=== PATIENT | female | born 1940 | race Caucasian/White ===

== ENCOUNTER 2018-11-27 16:33 | Inpatient (IN) ==
[2018-11-27] MEDS ORDERED: CARDIZEM IV ONE ×2 (17:32→20:39)
[2018-11-27] MEDS ORDERED: CARDIZEM ONE (17:46)
--- NOTE | 2018-11-27 17:54 | PROVIDER DOCUMENTATION ---
This chart was entered by Muna Josue Scribe, acting as scribe for Renan Livingston MD. HPI-Cardiac General - General Source: patient - History of Present Illness-Cardiac Location: reports: central Quality of Pain: reports: none Severity in ED: mild Onset/Duration: 2 days ago Timing: still present Context/Activities at Onset: reports: light activity Modifying Factors: improves with: nothing Palpitation Quality: fast/pounding heart beat (fast) History of arrythmia: reports: none Associated Symptoms: reports: shortness of breath, weakness Similar Symptoms Previously?: Yes Recently Seen Here or By Another Healthcare Provider: Yes <Renan Livignston - Last Filed: 11/27/18 19:36> <Boris Velez - Last Filed: 11/27/18 21:47> - General Chief Complaint: Palpitations Stated Complaint: HEART RACING Time Seen by Provider: 11/27/18 17:35 Allergies/Adverse Reactions: Patient Allergies Allergy/AdvReac Type Severity Reaction Status Date / Time Tetanus Vaccines and Toxoid Allergy Severe edema Verified 10/18/16 15:25 [Tetanus] azithromycin AdvReac Intermediate NAUSEA/VOMI Verified 10/18/16 15:25 TING cephalexin monohydrate * AdvReac Intermediate NAUSEA/VOMI Verified 10/18/16 15: 25 [From Keflex] TING sertraline HCl * AdvReac Intermediate Unknown Verified 10/18/16 15:25 [From Zoloft] sulfamethoxazole AdvReac VOMITING Verified 10/18/16 15:25 [From Bactrim] trimethoprim [From Bactrim] AdvReac VOMITING Verified 10/18/16 15:25 Home Medications: Home Medication List Medication Instructions Recorded Confirmed Last Taken Type Docusate Sodium [Colace] 100 mg PO DAILY 08/21/12 10/18/16 10/18/16 08:30 History Hydrochlorothiazide 12.5 mg PO DAILY 08/21/12 10/18/16 10/18/16 08:30 History Lorazepam [Ativan] 1 mg PO QHS 08/21/12 10/18/16 10/17/16 History PRAVAstatin [Pravachol] 80 mg PO QHS 08/21/12 10/18/16 10/17/16 History Albuterol 2.5MG/Ipratrop 0.5MG 3 ml INH Q4-6H PRN PRN #30 neb 10/18/16 Unknown Rx [Duoneb] Benzonatate [Tessalon Perle] 100 mg PO HS PRN PRN #40 capsule 10/18/16 Unknown Rx Budesonide/Formoterol Inhaler 2 puff INH RTBID 10/18/16 10/18/16 10/18/16 08:30 History [Symbicort 160/4.5 Microgm Inhaler] Fexofenadine [Consuelo] 60 mg PO DAILY 10/18/16 10/18/16 10/18/16 08:30 History Fluticasone 50 Mcg Nasal [place] 1 spray SUHAS DAILY 10/18/16 10/18/16 10/18/16 08: 30 History [Flonase] Losartan [Cozaar] 50 mg PO DAILY 10/18/16 10/18/16 10/18/16 08:30 History Montelukast Chew [Singulair] 4 mg PO DAILY 10/18/16 10/18/16 10/18/16 08:30 History Olopatadine HCl [Patanase] 30.5 gm NS BID 10/18/16 10/18/16 10/17/16 History - History of Present Illness-Cardiac Nature of Presenting Problem: Patient is a 78 year old female who presents to the ED with palpitations. Patient states shortness of breath and weakness. Patient states symptoms started 2 days ago. Patient does not report chest pain. Patient states seeing Dr. Yun this morning and was placed on a Holter Monitor. Patient states palpitations increased around 1530 today. (Muna Josue) Patient is a 78 year old female who presents to the ED with palpitations. Patient states shortness of breath and weakness. Patient states symptoms started 2 days ago. Patient does not report chest pain. Patient states seeing Dr. Yun this morning and was placed on a Holter Monitor. Patient states palpitations increased around 1530 today. (Renan Livingston) Review of Systems - Adult - REVIEW OF SYSTEMS - ADULT Constitutional: reports: no symptoms reported Eyes: reports: no symptoms reported Ears, Nose, Mouth & Throat: reports: no symptoms reported Cardiovascular: reports: palpitations. denies: chest pain, heart murmur Respiratory: reports: shortness of breath. denies: cough, wheezing Gastrointestinal: reports: no symptoms reported Genitourinary: reports: no symptoms reported Musculoskeletal: reports: muscle weakness. denies: back pain, neck pain Integumentary: reports: no symptoms reported Neurological: reports: no symptoms reported Psychiatric: reports: no symptoms reported Endocrine: reports: no symptoms reported Hematologic/Lymphatic: reports: no symptoms reported Allergic/Immunologic: reports: no symptoms reported All Other Systems: Reviewed and Negative <Renan Livingston - Last Filed: 11/27/18 19:36> Past History - Adult - PAST MEDICAL HISTORY-ADULT Review of Records: reports: Nursing Assessment Review, Medications Reviewed, Social history reviewed & non-contributory. Major Childhood Illnesses: reports: denies history Cardiovascular: reports: HTN, hyperlipidemia Respiratory: reports: bronchitis, COPD Gastrointestinal: reports: denies history Obstetrical/Gynecological: reports: denies history Genitourinary: reports: denies history Musculoskeletal: reports: denies history Neurological: reports: denies history Psychiatric: reports: denies history Endocrine/Immune: reports: denies history Other Conditions: reports: denies history - PRIOR SURGERIES/PROCEDURES Surgical/Procedure History: reports: hysterectomy - IMMUNIZATION STATUS Childhood Immunizations: See Nurse Assessment Flu Vaccine: See Nurse Assessment - FAMILY HISTORY Family History: reviewed, not pertinent - SOCIAL HISTORY Smoking: cigarettes (former) Substance Use: denies <Renan Livingston - Last Filed: 11/27/18 19:36> Physical Exam-General - PHYSICAL EXAM-ADULT Initial Vital Signs Reviewed: Yes - CONSTITUTIONAL General Appearance: alert, no apparent distress - HEAD, EARS, NOSE, MOUTH & THROAT HENMT: normal ENT inspection - RESPIRATORY Respiratory: chest non-tender, lungs clear, normal breath sounds - CARDIOVASCULAR Cardiovascular: tachycardia, irregularly irregular - GASTROINTESTINAL (ABDOMEN) Abdominal Exam: normal bowel sounds, non tender, soft - MUSCULOSKELETAL Back Exam: normal inspection Extremity: normal inspection - SKIN Integumentary: normal color, normal turgor, warm/dry - NEUROLOGIC Neurologic: grossly normal - PSYCHIATRIC Psych/Mental Status: normal mood/affect, oriented x 3 <Renan Livingston - Last Filed: 11/27/18 19:36> Progress - PLAN OF CARE/RESULTS Result Diagrams: 11/27/18 16:55 11/27/18 16:55 - EKG 1 Time of EKG reading by physician:: 16:43 EKG Read and Signed by:: Renan Livingston EKG Interpretation (*Must complete 3 of following elements*): Abnormal (rhythm - atrial fibrillation with rapid ventricular response with premature ventricular or aberrantly conducted complexes.) Rate: 153 Comments: ST & T wave abnormality, consider inferior ischemia - CHANGE OF SHIFT REPORT (ED Provider) 1 Report Given and Care Transferred to:: DR VELEZ Time of Transfer: 19:37 Items Pending: Labs, Other (CONTROLL OR RVR RATE) <Renan Livingston - Last Filed: 11/27/18 19:36> - PLAN OF CARE/RESULTS Result Diagrams: 11/27/18 16:55 11/27/18 16:55 <Boris Velez - Last Filed: 11/27/18 21:47> - PLAN OF CARE/RESULTS Progress/Plan/Lab Results: Vital Signs - 8 hr 11/27/18 16:36 11/27/18 17:02 11/27/18 17:10 Temperature 97.3 F L Pulse Rate 105 H 162 H 141 H Respiratory Rate 18 23 24 Blood Pressure 137/77 174/147 O2 Sat by Pulse Oximetry 100 99 98 11/27/18 17:20 11/27/18 17:30 11/27/18 17:40 Temperature Pulse Rate 139 H 154 H 140 H Respiratory Rate 20 19 21 Blood Pressure O2 Sat by Pulse Oximetry 98 99 99 11/27/18 17:50 11/27/18 18:00 11/27/18 18:10 Temperature Pulse Rate 85 103 H 113 H Respiratory Rate 24 19 24 Blood Pressure O2 Sat by Pulse Oximetry 100 97 95 11/27/18 18:17 11/27/18 18:18 11/27/18 18:20 Temperature Pulse Rate 121 H 111 H 119 H Respiratory Rate 26 H 19 29 H Blood Pressure 127/80 127/80 O2 Sat by Pulse Oximetry 99 98 95 11/27/18 18:29 11/27/18 18:31 11/27/18 18:40 Temperature Pulse Rate 171 H 163 H 152 H Respiratory Rate 21 21 20 Blood Pressure 106/79 O2 Sat by Pulse Oximetry 98 98 98 11/27/18 18:50 11/27/18 19:00 11/27/18 19:02 Temperature Pulse Rate 164 H 124 H 160 H Respiratory Rate 17 27 H 20 Blood Pressure 144/72 O2 Sat by Pulse Oximetry 97 97 98 11/27/18 19:10 11/27/18 19:20 11/27/18 19:30 Temperature Pulse Rate 127 H 143 H 122 H Respiratory Rate 16 12 18 Blood Pressure O2 Sat by Pulse Oximetry 98 98 98 11/27/18 19:40 11/27/18 19:50 11/27/18 20:00 Temperature Pulse Rate 128 H 158 H 133 H Respiratory Rate 16 16 16 Blood Pressure O2 Sat by Pulse Oximetry 94 L 99 99 11/27/18 20:01 11/27/18 20:10 11/27/18 20:20 Temperature Pulse Rate 158 H 155 H 155 H Respiratory Rate 23 21 29 H Blood Pressure 152/89 O2 Sat by Pulse Oximetry 99 100 99 11/27/18 20:30 11/27/18 20:32 Temperature Pulse Rate 120 H Respiratory Rate 19 Blood Pressure 147/118 O2 Sat by Pulse Oximetry 95 Laboratory Results - last 24 hr 11/27/18 11/27/18 11/27/18 16:55 16:55 16:55 WBC RBC Hgb Hct MCV MCH MCHC RDW Std Deviation Plt Count MPV Immature Gran % (Auto) Neut % (Auto) Lymph % (Auto) [place] % (Auto) Eos % (Auto) Baso % (Auto) Immature Gran # (Auto) Neut # (Auto) Lymph # (Auto) [place] # (Auto) Eos # (Auto) Baso # (Auto) PT INR PTT (Actin FS) Sodium 132 L Potassium 3.8 Chloride 93 L Carbon Dioxide 25 Anion Gap 14 BUN 28 H Creatinine 1.9 H Estimated GFR/1.73 m2 26 BUN/Creatinine Ratio 15 Glucose 120 H Calculated Osmolality 271 Calcium 10.2 Magnesium 2.2 Troponin T < 0.010 TSH 3.39 Urine Source Urine Color Urine Turbidity Urine pH Ur Specific [place] Urine Protein Ur Glucose (Stick) Ur Ketones (Stick) Urine Blood Urine Nitrite Urine Bilirubin Urobilinogen Dipstick Urine Leukocytes Urine WBC (Auto) Urine RBC (Auto) U Epithel Cells (Auto) Urine Bacteria (Auto) Urine Crystals Small Round Cells Urine Casts Urine Yeast-like Cells 11/27/18 11/27/18 11/27/18 16:55 16:55 18:45 WBC 16.68 H RBC 4.92 Hgb 14.9 Hct 43.6 MCV 88.6 MCH 30.3 MCHC 34.2 RDW Std Deviation 13.4 Plt Count 538 H MPV 9.6 Immature Gran % (Auto) 0.4 Neut % (Auto) 73.1 Lymph % (Auto) 19.7 L [place] % (Auto) 6.4 Eos % (Auto) 0.2 Baso % (Auto) 0.2 Immature Gran # (Auto) 0.06 H Neut # (Auto) 12.21 H Lymph # (Auto) 3.28 [place] # (Auto) 1.07 H Eos # (Auto) 0.03 Baso # (Auto) 0.03 PT 12.9 INR 0.90 PTT (Actin FS) 26.7 Sodium Potassium Chloride Carbon Dioxide Anion Gap BUN Creatinine Estimated GFR/1.73 m2 BUN/Creatinine Ratio Glucose Calculated Osmolality Calcium Magnesium Troponin T TSH Urine Source CLEAN CATCH Urine Color YELLOW Urine Turbidity HAZY Urine pH 6.0 Ur Specific [place] 1.011 Urine Protein TRACE A Ur Glucose (Stick) NEGATIVE Ur Ketones (Stick) 10 A Urine Blood NEGATIVE Urine Nitrite NEGATIVE Urine Bilirubin NEGATIVE Urobilinogen Dipstick NORMAL Urine Leukocytes MODERATE A Urine WBC (Auto) <10 Urine RBC (Auto) <10 U Epithel Cells (Auto) <10 Urine Bacteria (Auto) NEGATIVE Urine Crystals Not Reportable Small Round Cells Not Reportable Urine Casts NONE SEEN Urine Yeast-like Cells Not Reportable Orders Category Date Time Status Restart Infusion If As Ordered Care 11/27/18 20:40 Active Saline Loc NOW Care 11/27/18 17:35 Active BMP [BASIC METABOLIC PANEL] [CHEM] Stat Lab 11/27/18 16:55 Completed CBC WITH ELECTRONIC DIFF [HEME] Stat Lab 11/27/18 16:55 Completed MAGNESIUM [CHEM] Stat Lab 11/27/18 16:55 Completed PROTIME WITH INR [COAG] Stat Lab 11/27/18 16:55 Completed PTT [COAG] Stat Lab 11/27/18 16:55 Completed TROPONIN T Stat Lab 11/27/18 16:55 Completed TSH Stat Lab 11/27/18 16:55 Completed URINALYSIS W/POSS RFLX CULT [URINALYSIS] Stat Lab 11/27/18 18:45 Completed URINE CULTURE [RM] Routine Lab 11/27/18 19:23 Received URINE MANUAL MICROSCOPIC [URINALYSIS] Stat Lab 11/27/18 18:45 Completed 0.9% Sodium Chloride Inj [Ns] 1,000 ml Med 11/27/18 18:41 Discontinued .ROUTE As Directed 0.9% Sodium Chloride Inj [Ns] 1,000 ml Med 11/27/18 18:42 Discontinued IV 999 mls/hr 0.9% Sodium Chloride Inj [Ns] 100 ml Med 11/27/18 20:45 Active Diltiazem [Cardizem] 125 mg IV As Directed Diltiazem [Cardizem] Med 11/27/18 17:32 Discontinued 20 mg IV NOW ONE Diltiazem [Cardizem] Med 11/27/18 17:46 Discontinued 25 mg .ROUTE .STK-MED ONE Diltiazem [Cardizem] Med 11/27/18 20:39 Discontinued 5 mg IV NOW ONE Pt signed out to me by Dr. Livingston, pt had received 20 of dilt, initially slowed down but upon speaking with me pt was back to HR in 150-160, pt started on dilt drip for Afib with RVR, spoke to Dr. Mcgee and will admit (Boris Velez) Departure <Renan Livingston - Last Filed: 11/27/18 19:36> - Departure Date of Disposition Decision: 11/27/18 Time of Disposition Decision: 21:46 Certified Medical Emergency: Emergent - Critical Care Note This patient required my direct & personal management of CC.: No <Boris Velez - Last Filed: 11/27/18 21:47> - Departure DIAGNOSIS: Atrial fibrillation with RVR Disposition: HOME 01 Condition: Stable Referrals and Follow-Ups: David Cordero MD [Primary Care Provider] - Attestation - Physician/ KENIA Attestation The physician spent face to face time with patient:: Yes Advanced Practice Provider documentation review:: Supervising physician onsite and consulted in the evaluation and care of this patient. The physician did have a face to face encounter with the patient. <Renan Livingston - Last Filed: 11/27/18 19:36> - Physician/ KENIA Attestation Patient care was provided by Advanced Practice Provider:: No The physician spent face to face time with patient:: Yes Advanced Practice Provider documentation review:: Supervising physician onsite and consulted in the evaluation and care of this patient. The physician did have a face to face encounter with the patient. <Boris Velez - Last Filed: 11/27/18 21:47> This chart was documented by the indicated scribe, (Muna Josue Scribe) and accurately reflects the services I performed and decisions made by me, Renan Livingston MD, as attested by the provider's signature.
[2018-11-27 18:04] LABS: BASO# 0.03 X1000 (0.0-0.2); BASO% 0.2 % (0.0-0.8); EOS# 0.03 X1000 (0.0-0.7); EOS% 0.2 % (0.0-10.0); HEMATOCRIT 43.6 % (37.0-47.0); HEMOGLOBIN 14.9 g/dL (12.0-16.0); IMM GRAN# 0.06 X1000 (0.0-0.04); IMM GRAN% 0.4 % (0.0-0.5); LYMPH# 3.28 X1000 (1.2-3.4); LYMPH% 19.7 % (20.5-51.1); MCH 30.3 PG (27-31); MCHC 34.2 g/dL (33-37); MCV 88.6 FL (81-99); MONO# 1.07 X1000 (0.11-0.59); MONO% 6.4 % (1.7-9.3); MPV 9.6 FL (7.4-10.4); NEUT# 12.21 X1000 (1.4-6.5); NEUT% 73.1 % (42.2-75.2); PLT 538 X1000 (130-400); RBC 4.92 XMIL (4.2-5.4); RDW 13.4 % (11.5-14.5); WBC 16.68 X1000 (4.8-10.8)
[2018-11-27 18:22] LABS: INR 0.9; PROTIME 12.9 Seconds (11.0-16.0)
[2018-11-27 18:24] LABS: PTT 26.7 Seconds (22.3-41.8)
[2018-11-27 18:37] LABS: CALCIUM 10.2 mg/dL (8.8-10.2); CREATININE 1.9 mg/dL (0.5-0.9); MAGNESIUM 2.2 mg/dL (1.5-2.7); POTASSIUM 3.8 mmol/L (3.5-5.1)
[2018-11-27] MEDS ORDERED: NS 1,000 ML ONE (18:41)
[2018-11-27] MEDS ORDERED: NS 1,000 ML IV ONE (18:42)
[2018-11-27 18:53] LABS: URINE SOURCE CLEAN CATCH
[2018-11-27 18:58] LABS: BILIRUBIN URINE NEGATIVE (NEGATIVE); BLOOD URINE NEGATIVE (NEGATIVE); COLOR YELLOW; GLUCOSE URINE NEGATIVE (NEGATIVE); KETONE URINE 10 mg/dL (NEGATIVE); LEUKOCYTES URINE MODERATE (NEGATIVE); NITRITE URINE NEGATIVE (NEGATIVE); PROTEIN URINE TRACE mg/dL (NEGATIVE); SP GRAVITY URINE 1.011; TURBIDITY URINE HAZY (CLEAR); UROBILINOGEN URINE NORMAL (NORMAL)
[2018-11-27 19:13] LABS: UR EPITHELIAL CELLS <10 /HPF (<10); URINE BACTERIA NEGATIVE /HPF; URINE RBC <10 /HPF (<10); URINE WBC <10 /HPF (<10)
[2018-11-27 19:20] LABS: URINE CASTS NONE SEEN
[2018-11-27] MEDS ORDERED: CARDIZEM 125 MG in NS 100 ML IV SCH (20:45)
[2018-11-27] MEDS ORDERED: TYLENOL PO ONE ×2 (22:18→22:55)
[2018-11-27] MEDS ORDERED: TYLENOL ONE (22:33)
[2018-11-27] MEDS: NS 1,000 ML IV SCH (23:30)
[2018-11-27] MEDS ORDERED: ZOFRAN IV PRN (23:30)
[2018-11-27] MEDS: HEPARIN SUBQ SCH (23:30)
[2018-11-27] MEDS: ATIVAN PO SCH (23:30)
[2018-11-27] MEDS ORDERED: SODIUM CHLORIDE 0.9% INJ SCH (23:30)
[2018-11-27] MEDS: PROTONIX IV SCH (23:30)
[2018-11-28] MEDS: CARDIZEM PO SCH ×5 (01:15→21:08)
--- NOTE | 2018-11-28 04:24 | ED EKG INTERP ---
This chart was entered by Kimi Tavarez Scribe, acting as scribe for Boris Lowe MD. EKG Interpretation - EKG Time of EKG reading by physician:: 22:31 EKG Read and Signed by:: Boris Lowe EKG Interpretation (*Must complete 3 of following elements*): Abnormal (normal sinus rhythm, T wave abnormality, consider inferior ischemia, T wave abnormality , consider anterior ischemia, Abnormal ECG) Rate: 91 Rhythm: sinus Attestation - Physician/ KENIA Attestation Patient care was provided by Advanced Practice Provider:: No The physician spent face to face time with patient:: Yes Advanced Practice Provider documentation review:: Supervising physician onsite and consulted in the evaluation and care of this patient. The physician did have a face to face encounter with the patient. This chart was documented by the indicated scribe, (Kimi Tavarez Scribe) and accurately reflects the services I performed and decisions made by me, Boris Lowe MD, as attested by the provider's signature.
--- NOTE | 2018-11-28 05:47 | Diag Imaging Result Doc PS360 ---
EXAM: CT THORAX W/O CONTRAST HISTORY: r/o pna. History of copd TECHNIQUE: CT chest without contrast COMPARISON: None. FINDINGS: No pleural effusions. No cardiomegaly. Moderate atherosclerosis. There are small mediastinal nodes. No enlarged lymph nodes. No infiltrates or consolidation. No bronchiectasis. There are multiple thin-walled cystic areas throughout the lungs. These are most pronounced in the lung bases and range in size from 5 mm to just over 6 cm. Limited images through the upper abdomen reveal several hepatic cysts. There has been extensive surgery to the lower cervical spine as well as the lower thoracic and upper lumbar spine. IMPRESSION: 1.No pneumonia 2.Multiple scattered cystic areas throughout the lungs. Differential includes atypical emphysema, lymphangiomyomatosis, or even cystic Langerhans cell histiocytosis. 3.A preliminary report was given at 12:44 AM This exam was performed using automated exposure control, adjustment of mA or kV according to patient size, and/or use of iterative reconstruction technique. Electronically signed by Rony Sanford 11/28/2018 5:45 AM
[2018-11-28 07:33] LABS: BASO# 0.04 X1000 (0.0-0.2); BASO% 0.3 % (0.0-0.8); EOS# 0.07 X1000 (0.0-0.7); EOS% 0.6 % (0.0-10.0); HEMATOCRIT 36.8 % (37.0-47.0); HEMOGLOBIN 12.4 g/dL (12.0-16.0); IMM GRAN# 0.02 X1000 (0.0-0.04); IMM GRAN% 0.2 % (0.0-0.5); LYMPH% 27.9 % (20.5-51.1); MCH 30.5 PG (27-31); MCHC 33.7 g/dL (33-37); MCV 90.6 FL (81-99); MONO# 0.84 X1000 (0.11-0.59); MONO% 7.3 % (1.7-9.3); MPV 9.3 FL (7.4-10.4); NEUT# 7.32 X1000 (1.4-6.5); NEUT% 63.7 % (42.2-75.2); PLT 361 X1000 (130-400); RBC 4.06 XMIL (4.2-5.4); RDW 13.3 % (11.5-14.5); WBC 11.49 X1000 (4.8-10.8)
[2018-11-28 07:37] LABS: CREATININE 1.4 mg/dL (0.5-0.9); POTASSIUM 3.6 mmol/L (3.5-5.1)
--- NOTE | 2018-11-28 08:35 | HISTORY AND PHYSICAL ---
PRIMARY CARE PHYSICIAN: Dr. David Cordero. CHIEF COMPLAIN: Palpitations. HISTORY OF PRESENT ILLNESS: This is a 78-year-old female who started complaining of palpitation this Saturday, so she went to see her primary care physician who found out she was in atrial fibrillation but the rate was controlled, so he coordinated an appointment with Dr. Andrade from Cardiology today. She was seeing her in the office. She was ordered many blood tests and she was provide some medication that she does not remember at this time. She went home and while she was checking her blood pressure, the heart rate according to the machine was 140s and 150s, so she called Dr. Andrade's office and she was recommended to come to the emergency department. The patient was complaining of some chest discomfort on and off. Denies any chest pain. Denies any nausea and vomiting. She was given some Cardizem IV pushes but because patient continues to be on elevated heart rate, the patient was started in the ER on Cardizem drip. The patient is going to be admitted for further evaluation and treatment. PAST MEDICAL HISTORY: 1. Hypertension. 2. Hypercholesterolemia. 3. COPD with emphysema. Patient never smoked patient. Patient is being seen by Dr. Ariza in the office. 4. Allergies, known seasonal. Patient receives a weekly shot. PAST SURGICAL HISTORY: 1. Three neck surgeries. 2. Hysterectomy. 3. Three back surgeries with placement of metallic rods and also fusion from the T10 to the sacrum. 4. Two breast biopsies. 5. Two surgeries in the elbow. ALLERGIES: As per patient, patient is allergic to tetanus vaccine. She did not mention anything about azithromycin or cephalexin. FAMILY HISTORY: Positive for hypercholesterolemia. SOCIAL HISTORY: Patient lives with . Never a smoker. Denies drinking alcohol, or using illicit drugs. PHYSICAL EXAMINATION: VITAL SIGNS: Temperature 97.3 degrees, heart rate 162, respiratory rate 23, blood pressure 174/47, O2 saturation 100% on room air. GENERAL: This is a 78-year-old female, lying in bed, in no acute distress. HEENT: Head is normocephalic, atraumatic. Mucous membranes are moist. NECK: No JVD noted. No carotid bruits. No lymphadenopathy. No thyromegaly. CARDIOVASCULAR: S1, S2 heard. No murmurs, gallops, or rubs. Irregularly irregular. RESPIRATORY: Decreased breath sounds globally. Patient is not using any accessory muscles or having work of breathing. ABDOMEN: Soft, nontender to palpation. Bowel sounds present. No organomegaly. EXTREMITIES: No clubbing, cyanosis, or edema. Peripheral pulses present in both legs. NEUROLOGICAL: Patient alert oriented x3. Moves all 4 extremities. LABORATORY DATA: White cell count 16.68, hemoglobin 14.9, hematocrit 43.6, platelets 538,000. Sodium 132, potassium 3.8, creatinine 1.9, glucose 120s. ASSESSMENT AND PLAN: 1. New onset atrial fibrillation with rapid ventricular response. Patient has been started on Cardizem drip. Upon my examination, heart rate is back to sinus. We are going to stop Cardizem drip. We will send to the [facility] just in case she is back in atrial fibrillation. We will start Cardizem 30 mg p.o. q.6 hours. We will consult Cardiology. We will do an echocardiogram and we will go from there. We will place on telemetry of course. 2. Hypertension. Blood pressure is under control. We will continue with the same management. 3. Leukocytosis, unknown at this point why. We have ordered blood culture, urine culture. Patient denies any respiratory or urinary symptoms. We will monitor this patient and if cultures are positive, we will start antibiotics. 4. Chronic kidney disease stage 2. Patient's creatinine is 1.9. Started getting higher during the last few years. In 2016 it was 1.2 and last year in June was 1.2, but today yesterday, it was 1.9 and 1.6. In any case, we will continue to monitor this patient closely. We will provide gentle fluid hydration. 5. Hypercholesteremia. Will continue home medications. 6. Chronic obstructive pulmonary disease/emphysema. We will continue with breathing treatments. The patient is not in any exacerbation. Further recommendations to follow according to the clinical situation of the patient. cc: Tayo Camarillo MD
[2018-11-28] MEDS: ALLEGRA PO SCH (09:15)
[2018-11-28] MEDS: COLACE PO SCH (09:17)
[2018-11-28] MEDS: FLONASE NAS SCH (09:18)
--- NOTE | 2018-11-28 09:30 | EKG Report ---
Test Performed on : 11/27/2018 4:43:45 PM Test Reason : ED. No order in [place] Blood Pressure : / mmHG Vent. Rate : 153 BPM Atrial Rate : 340 BPM P-R Int : 000 ms QRS Dur : 064 ms QT Int : 298 ms P-R-T Axes : 000 054 253 degrees QTc Int : 475 ms Atrial fibrillation. with rapid ventricular response. with premature ventricular or aberrantly conduc pepe complexes. ST & T wave abnormality, consider inferior ischemia Abnormal ECG When compared with ECG of 18-OCT-2016 15:31, Atrial fibrillation. has replaced Junctional rhythm. Vent. rate has increased BY 66 BPM Nonspecific T wave abnormality, worse in Lateral leads Unconfirmed Result
--- NOTE | 2018-11-28 09:32 | EKG Report ---
Test Performed on : 11/27/2018 10:31:41 PM Test Reason : ED. NO order in [place] Blood Pressure : / mmHG Vent. Rate : 091 BPM Atrial Rate : 091 BPM P-R Int : 136 ms QRS Dur : 064 ms QT Int : 432 ms P-R-T Axes : 059 042 051 degrees QTc Int : 531 ms Normal sinus rhythm. T wave abnormality, consider inferior ischemia T wave abnormality, consider anterior ischemia Abnormal ECG When compared with ECG of 27-NOV-2018 16:43, (Unconfirmed) Sinus rhythm. has replaced Atrial fibrillation. Vent. rate has decreased BY [address] no longer depressed in Inferior leads ST no longer depressed in Anterior leads Inverted T waves have replaced nonspecific T wave abnormality in Anterior leads Unconfirmed Result
[2018-11-28] MEDS: SYMBICORT 160/4.5 MICROGM INHALER INH SCH ×2 (11:00→19:05)
[2018-11-28] MEDS: SINGULAIR PO SCH (11:00)
[2018-11-28] MEDS: LOPRESSOR PO SCH ×2 (12:23→19:05)
[2018-11-28] MEDS: HEPARIN SUBQ SCH (12:23)
[2018-11-28] MEDS ORDERED: CARDIZEM 125 MG in NS 100 ML IV SCH (12:45)
--- NOTE | 2018-11-28 13:29 | EKG Report ---
Test Performed on : 11/28/2018 12:47:26 PM Test Reason : afib Blood Pressure : / mmHG Vent. Rate : 122 BPM Atrial Rate : 330 BPM P-R Int : 000 ms QRS Dur : 064 ms QT Int : 342 ms P-R-T Axes : 000 050 223 degrees QTc Int : 487 ms Atrial flutter. with variable AV block. ST & T wave abnormality, consider inferior ischemia ST & T wave abnormality, consider anterolateral ischemia Abnormal ECG When compared with ECG of 27-NOV-2018 22:31, (Unconfirmed) Atrial flutter. has replaced Sinus rhythm. Confirmed by Yen MESSINA, Salazar Neves ([id number]) on 11/29/2018 7:10:47 AM
[2018-11-28] MEDS: NS 1,000 ML IV SCH (15:48)
--- NOTE | 2018-11-28 17:55 | ECHO REPORT ---
ORDER DATE: 11/27/2018 ECHOCARDIOGRAM: INDICATION: Atrial fibrillation with rapid ventricular response. FINDINGS: 1. Right atrium appears normal in size. 2. Mild tricuspid regurgitation. RV systolic pressure of 40. 3. Normal RV size and systolic function. 4. No significant pulmonic insufficiency. 5. Normal left atrial size with a dimension of 3.6 cm. 6. No mitral valve prolapse. Trace mitral regurgitation. Somewhat difficult Doppler evaluation of the mitral valve. 7. The left ventricle appears normal in size with an end-diastolic dimension of 4.2. Normal wall thicknesses with posterior and interventricular septal wall thickness of 0.9 cm each. Hyperdynamic LV systolic function with estimated EF greater than 70%. The left ventricular outflow tract gradient was normal, but does not appear to have been assessed on Valsalva. 8. Aortic valve opens well. It is trileaflet. No evidence of stenosis or insufficiency. 9. Aorta appears normal in visualized segments. 10. No pericardial effusion seen. cc: MD Tayo Johnson MD
--- NOTE | 2018-11-28 18:27 | PROGRESS NOTE ---
DATE: 11/28/2018 SUBJECTIVE: At this moment the patient is feeling a little bit better. She is still in atrial fibrillation but the rate is controlled. Cardiology Department on board. We will continue with the same management and following recommendations. OBJECTIVE: Vital signs: Temperature 98 degrees, pulse 65, respiratory rate 17, blood pressure 116/66, oxygen saturation 98% on room air. HEENT: Head normocephalic. No trauma. PERRLA. Neck supple. No JVD. No masses. Central trachea. Chest clear to auscultation. No wheezing. No rales. Cardiovascular: Irregularly irregular rate and rhythm. Abdomen is soft, nontender, nondistended. No hepatosplenomegaly. Extremities: No edema. No clubbing. No cyanosis. Some joint deformity in the hands, probably due to arthritis. Neurological: The patient is alert and oriented x3. No focal deficits. LABORATORY DATA: WBC 11.4, hemoglobin 12.4, hematocrit 36.8, platelets 361,000. Sodium 141, potassium 3.6, chloride 105, bicarbonate 24, BUN 24, creatinine 1.4, glucose 79, calcium 9. Troponins negative x3. ASSESSMENT AND PLAN: 1. New-onset atrial fibrillation with rapid ventricular response. Continue with same management. She is getting Cardizem drip and also p.o. We will continue monitoring this patient in the cardiac intensive care unit. Cardiology Department on board. 2. Hypertension, stable. Continue with same management. 3. Leukocytosis. No source of infection at this moment. The patient denies any respiratory, skin or urinary symptoms. WBC decreased compared with yesterday. 4. Jmsul-lf-vjsluzp kidney disease. Creatinine also decreased from 1.9 to 1.4. This is really close to her baseline. We will continue to monitor. 5. Hypercholesterolemia. Continue with home medications. 6. Chronic obstructive pulmonary disease/emphysema. Continue breathing treatment as needed. This patient is not in exacerbation. She is not a smoker. cc: Miles Win MD
[2018-11-28] MEDS: PRAVACHOL PO SCH (21:08)
[2018-11-28] MEDS: PROTONIX IV SCH (21:08)
[2018-11-28] MEDS: ELIQUIS PO SCH (21:08)
[2018-11-28] MEDS: ATIVAN PO SCH (21:08)
--- NOTE | 2018-11-29 00:08 | PULMONOLOGY CONSULTATION ---
DATE: 11/28/2018 REQUESTING PHYSICIAN: Dr. Andrade. REASON FOR CONSULTATION: Abnormal CT scan. HISTORY OF PRESENT ILLNESS: Ms. La is a 78-year-old white female, a never smoker, who was admitted to the hospital with atrial fibrillation and rapid ventricular response. The patient had a chest x-ray which revealed no evidence of active disease. The patient was without pulmonary complaints, but did get a CT scan of the thorax, which reveals paraseptal and centrilobular emphysema. The patient has been followed in my clinic for approximately 7 years. The patient was admitted to the hospital in 2011 with a spontaneous pneumothorax. She was referred to [facility] because of a persistent leak, which did eventually close. She had a bronchoscopy performed at that visit by Dr. Cook. She has had serial pulmonary function studies, without evidence of progression of obstruction. She has always had dyspnea out of proportion to her normal appearing pulmonary function studies. Prior alpha-1 antitrypsin levels have been normal. PAST MEDICAL HISTORY/PROBLEM LIST: 1. Spontaneous pneumothorax, as per above. 2. Anxiety disorder. 3. Asthma. 4. Allergic rhinitis. 5. Hypertension. 6. Hypercholesterolemia. 7. Status post 4 back surgeries, with extensive hardware. 8. History of neck surgery. 9. Status post left elbow surgery. 10. Status post breast biopsies. 11. Status post hysterectomy. 12. Status post bilateral cataract surgery. SOCIAL HISTORY: The patient is a never smoker. No alcohol use. No known exposure to asbestos. No occupational exposures have been identified. REVIEW OF SYSTEMS: Notable for palpitations and lightheadedness prior to this admission. PHYSICAL EXAMINATION: General: Reveals a healthy-appearing white female, resting comfortably, and in no distress. Vital Signs: Blood pressure 116/66, heart rate 65, respiratory rate 17, oxygen saturation 98% on room air. HEENT: Pupils are equal and reactive. Oropharynx is clear. Neck: Supple. Chest: Reveals good air entry bilaterally, without wheezing, rales, or tactile fremitus. Cardiac: S1-S2. Abdomen: Soft, and without hepatosplenomegaly. Extremities: Without edema. LABORATORIES: CT scan shows emphysematous changes as per above. Her last CT scan of the thorax was in [facility] in 2011. It is not available currently on our system. She does have a CT scan of the abdomen and pelvis in 2009, which also demonstrated the emphysematous areas. She may have had slight progression over the last 9 years. IMPRESSION: 1. A 78-year-old nonsmoker with centrolobular and paraseptal emphysema, with probable slight progression over the last 9 years. Her PFTs have been followed serially, with the last ones in February are nearly normal, except for mild reduction in diffusion capacity. 2. Atrial fibrillation. 3. Chronic anxiety and dyspnea. RECOMMENDATIONS: No pulmonary recommendation. We will follow up as an outpatient. cc: Tereso Ariza MD
[2018-11-29] MEDS: LOPRESSOR PO SCH ×2 (02:19→11:29)
[2018-11-29] MEDS: NS 1,000 ML IV SCH (03:06)
[2018-11-29] MEDS: CARDIZEM PO SCH ×3 (03:06→14:50)
[2018-11-29 05:34] LABS: BASO# 0.02 X1000 (0.0-0.2); BASO% 0.2 % (0.0-0.8); EOS# 0.11 X1000 (0.0-0.7); EOS% 1.2 % (0.0-10.0); HEMOGLOBIN 10.6 g/dL (12.0-16.0); IMM GRAN# 0.02 X1000 (0.0-0.04); IMM GRAN% 0.2 % (0.0-0.5); LYMPH# 2.99 X1000 (1.2-3.4); LYMPH% 33.3 % (20.5-51.1); MCH 30.2 PG (27-31); MCHC 33.1 g/dL (33-37); MCV 91.2 FL (81-99); MONO# 0.81 X1000 (0.11-0.59); MPV 9.4 FL (7.4-10.4); NEUT# 5.04 X1000 (1.4-6.5); NEUT% 56.1 % (42.2-75.2); PLT 331 X1000 (130-400); RBC 3.51 XMIL (4.2-5.4); RDW 13.2 % (11.5-14.5); WBC 8.99 X1000 (4.8-10.8)
[2018-11-29 06:12] LABS: CALCIUM 8.7 mg/dL (8.8-10.2); CREATININE 1.2 mg/dL (0.5-0.9); POTASSIUM 3.8 mmol/L (3.5-5.1)
--- NOTE | 2018-11-29 06:48 | CARDIOLOGY CONSULTATION ---
DATE: 11/28/2018 Consultation requested by the Hospitalist Service. PRIMARY CARE PHYSICIAN: Dr. Nelson. RAILROAD WATCHMAN: Dr. Andrade. The patient is in atrial fibrillation. HISTORY: Ms. La is a 78-year-old female who presented to Dr. Nelson about 3 or 4 days ago complaining of a cold and having palpitations. She was sent to my office yesterday and at my office, the patient was tachycardic with PACs. She had an obvious upper respiratory infection. We did some lab work on her which showed that her BUN and creatinine were slightly elevated. She may have been slightly dehydrated. We checked a ProBNP level that was normal. Patient was instructed to stop her usual antihypertensive drugs and also start taking Cardizem CD 120; however, in the afternoon she developed palpitations and a rapid pulse and at that time, she got into a panic mode and she was advised to come to the emergency room for evaluation. In the ER, she was found in atrial fibrillation with rapid response so she was put on Cardizem drip. She converted. Cardizem drip was discontinued and then she developed recurrent palpitations and Cardizem was put back in and she has converted back to sinus rhythm now and she is feeling better. She has never had any major cardiac arrhythmia before. PAST MEDICAL HISTORY: 1. Hypertension. 2. COPD. 3. Emphysema. 4. Seasonal allergies. 5. Hyperlipidemia. SURGICAL HISTORY: 1. She has had previous back surgery. 2. Cervical fusion. 3. Hysterectomy. She had a spontaneous pneumothorax in the past and elbow surgery. SOCIAL HISTORY: She is . She is retired. Lives at home with her . No smoker, no drugs. FAMILY HISTORY: Noncontributory. HOME MEDICATIONS: When we saw her at the office were as follows 1. Pravachol 80 mg daily. 2. Spironolactone 25 mg 3 days a week. 3. Hydrochlorothiazide daily. 4. Altace 10 mg daily. 5. Consuelo allergy. 6. Symbicort. 7. Ativan. ALLERGIES: Adhesive tape, tetanus shot, cephalexin, Bactrim, azithromycin and Zoloft. REVIEW OF SYSTEMS: Other than the aforementioned findings is noncontributory. Cardiopulmonary, gastrointestinal, neurological, psychiatric, hematological, genitourinary, skin , HEENT, etc. negative for any major illness. PHYSICAL EXAMINATION: VITAL SIGNS: Blood pressure right now is 143/58, pulse is 81. Temperature 97.3 degrees, respirations 18. GENERAL: She is awake, alert, oriented. HEENT: Unremarkable. CHEST: Sounds clear to auscultation and percussion. HEART: Sounds are regular and rhythmic. I do not hear a gallop or rub. ABDOMEN: Nontender. No masses or hepatosplenomegaly. EXTREMITIES: Showed palpable pulses. No peripheral edema. NEUROLOGICAL: Follows commands. Moves 4 extremities. IMPRESSION: 1. Patient with paroxysmal atrial fibrillation with rapid response. 2. History of hypertension. 3. History of emphysema, COPD. 4. Mild renal dysfunction probably secondary to combination of diuretics and antihypertensives. 5. Question of concomitant URI/common cold. RECOMMENDATIONS: At this time, we will keep her on Cardizem. We will put her on low dose beta deisy. We will see how she does over the next couple of days and if she remains stable, we will probably send her home on a Cardizem dose of CD 120-180 mg daily plus low dose beta deisy like Toprol XL 25-50 mg daily and we will follow her at the office. In addition, because of the development of atrial fibrillation, she is at higher risk for a stroke. She will probably require long-term anticoagulation with one of the known vitamin K antagonists. We will probably put her on Eliquis or Xarelto. Her body weight is 123 pounds and her renal function is slightly decreased so probably we will go with low dose Eliquis 2.5 mg twice a day. Further advice will be forthcoming. cc: Kvng Andrade MD MTDJens
[2018-11-29] MEDS: SYMBICORT 160/4.5 MICROGM INHALER INH SCH ×2 (07:54→20:05)
[2018-11-29] MEDS: COLACE PO SCH (08:24)
[2018-11-29] MEDS: ELIQUIS PO SCH ×2 (08:24→21:01)
[2018-11-29] MEDS: FLONASE NAS SCH (08:24)
[2018-11-29] MEDS: ALLEGRA PO SCH (08:24)
[2018-11-29] MEDS: SINGULAIR PO SCH (08:24)
--- NOTE | 2018-11-29 09:30 | PROGRESS NOTE ---
DATE: 11/29/2018 SUBJECTIVE: The patient is feeling better. She converted to normal sinus rhythm. At this moment, she is in normal sinus rhythm. No chest pain. No shortness of breath. Her white blood cells normalized. BUN is normal and creatinine at baseline, 1.2. She has been started on anticoagulation. OBJECTIVE: Vital Signs: Temperature 97.2 degrees, pulse on the monitor of 62, respiratory rate 14, blood pressure 105/45, oxygen saturation 99 on room air. HEENT: Head normocephalic. No trauma. PERRLA. Neck: Supple. No JVD. No masses. Central trachea. Chest: Clear to auscultation. No wheezing. No rales. Cardiovascular: RRR. Abdomen: Soft, nontender, nondistended. No hepatosplenomegaly. Extremities: No edema. No clubbing. No cyanosis. Neurological Examination: The patient is alert and oriented x3. No focal deficits. Laboratory: WBC 8.9, hemoglobin 10.6, hematocrit 32, platelets 331,000. Sodium 140, potassium 3.8, chloride 107, bicarbonate 22, BUN 19, creatinine 1.2, glucose 89, calcium 8.7. ASSESSMENT AND PLAN: 1. New onset atrial fibrillation with rapid ventricular response, resolved. Now this patient is in normal sinus rhythm. We will continue with the same management. Cardiology department on board. We will follow recommendations. 2. Hypertension, stable. Continue with the same treatment. 3. Leukocytosis, resolved. I do not have any source of infection at this moment, and the blood culture and urine culture are negative. 4. Acute on chronic kidney disease. Creatinine at baseline. She seems to be doing better. I will stop at this moment the normal saline and I will monitor. The patient is tolerating her diet. 5. Hypercholesterolemia. Continue with home medications. 6. Chronic obstructive pulmonary disease/emphysema in a nonsmoker patient, aware. Pulmonary department already evaluated this patient. They will continue monitoring this patient after discharge. cc: Miles Win MD
[2018-11-29] MEDS ORDERED: MUCINEX PO SCH (15:00)
[2018-11-29] MEDS: MUCINEX PO SCH ×2 (15:02→21:01)
[2018-11-29] MEDS: DUONEB (A & A) INH PRN (15:28)
--- NOTE | 2018-11-29 19:47 | PROGRESS NOTE ---
DATE: 11/29/2018 SUBJECTIVE: The patient continues without chest discomfort or palpitations. She has converted back to sinus rhythm. She still has some cough. OBJECTIVE: Blood pressure 126/54, heart rate 66, oxygen saturation 100% on room air. There is no significant jugular venous distention. Chest is clear to auscultation. Cardiac exam reveals a regular rate and rhythm, without appreciable murmur or gallop. Extremities are without edema. DIAGNOSTIC DATA: Recent echocardiography indicates left ventricular ejection fraction of at least 70%. LABORATORY DATA: Includes a white blood cell count 8.99, hematocrit 32.0, hemoglobin 10.6, platelet count 331,000. Sodium 140, potassium 3.8, chloride 107, carbon dioxide 22, BUN 19, creatinine 1.2, glucose 89. IMPRESSION: 1. Paroxysmal atrial fibrillation. The patient has converted back to sinus rhythm spontaneously. 2. Hypertension. 3. Chronic obstructive pulmonary disease. 4. Mild renal dysfunction. RECOMMENDATIONS: 1. Continue Cardizem CD and consolidate to 120 mg p.o. daily. 2. Continue beta-deisy with Toprol-XL 50 mg p.o. daily. 3. Continue low-dose Eliquis 2.5 mg p.o. b.i.d. 4. No further cardiovascular suggestions at this point. It is reasonable for the patient to be discharged in the next 24 hours from a cardiovascular standpoint. cc: Klever Wilkins MD
[2018-11-29] MEDS: PRAVACHOL PO SCH (21:01)
[2018-11-29] MEDS: PROTONIX IV SCH (21:02)
[2018-11-29] MEDS: ATIVAN PO SCH (21:02)
[2018-11-30 05:56] LABS: BASO# 0.02 X1000 (0.0-0.2); BASO% 0.2 % (0.0-0.8); EOS# 0.09 X1000 (0.0-0.7); HEMATOCRIT 32.7 % (37.0-47.0); HEMOGLOBIN 11.1 g/dL (12.0-16.0); IMM GRAN# 0.02 X1000 (0.0-0.04); IMM GRAN% 0.2 % (0.0-0.5); LYMPH% 26.3 % (20.5-51.1); MCH 30.6 PG (27-31); MCHC 33.9 g/dL (33-37); MCV 90.1 FL (81-99); MONO# 0.67 X1000 (0.11-0.59); MONO% 7.7 % (1.7-9.3); MPV 9.4 FL (7.4-10.4); NEUT# 5.64 X1000 (1.4-6.5); NEUT% 64.6 % (42.2-75.2); PLT 312 X1000 (130-400); RBC 3.63 XMIL (4.2-5.4); RDW 13.1 % (11.5-14.5); WBC 8.74 X1000 (4.8-10.8)
[2018-11-30 06:33] LABS: CALCIUM 8.8 mg/dL (8.8-10.2); CREATININE 1.1 mg/dL (0.5-0.9); POTASSIUM 3.7 mmol/L (3.5-5.1)
[2018-11-30] MEDS: ELIQUIS PO SCH ×3 (07:42→20:54)
[2018-11-30] MEDS: COLACE PO SCH ×2 (07:42→09:02)
[2018-11-30] MEDS: TOPROL XL PO SCH ×2 (07:42→09:01)
[2018-11-30] MEDS: MUCINEX PO SCH ×3 (07:42→20:54)
[2018-11-30] MEDS: CARDIZEM CD PO SCH ×2 (07:42→09:01)
[2018-11-30] MEDS: ALLEGRA PO SCH ×2 (07:42→09:01)
[2018-11-30] MEDS: FLONASE NAS SCH ×2 (07:43→09:01)
[2018-11-30] MEDS: SINGULAIR PO SCH ×2 (07:43→09:01)
[2018-11-30] MEDS: SYMBICORT 160/4.5 MICROGM INHALER INH SCH ×2 (07:48→19:31)
--- NOTE | 2018-11-30 08:04 | PROGRESS NOTE ---
DATE: 11/30/2018 SUBJECTIVE: This patient is feeling better. She had an episode of RVR during the night. At this moment, the heart rate is around the 100s. Cardiology department on board. I will wait for their recommendations. Probably this patient can be discharged either today or tomorrow. OBJECTIVE: Vital Signs: Temperature 98.7 degrees, pulse 66, respiratory rate 20, blood pressure 118/50, oxygen saturation 99 on room air. HEENT: Head normocephalic. No trauma. PERRLA. Neck: Supple. No JVD. No masses. Central trachea. Chest: Clear to auscultation. No wheezing. No rales. Cardiovascular: Irregularly irregular rate and rhythm. A little bit tachycardic. Abdomen: Soft, nontender, nondistended. No hepatosplenomegaly. Extremities: No edema. No clubbing. No cyanosis. Neurological Examination: The patient is alert and oriented x3. No focal deficits. Laboratory: WBC 8.7, hemoglobin 11.1, hematocrit 32.7, platelets 312,000. Sodium 141, potassium 3.7, chloride 106, bicarbonate 26, BUN 19, creatinine 1.1, glucose 89, calcium 8.8. ASSESSMENT AND PLAN: 1. New onset atrial fibrillation with rapid ventricular response, resolved even though she had an episode of rapid ventricular response during the night. She is still in atrial fibrillation at this moment. Cardiology department on board. She has been going back to sinus rhythm on and off. We will follow recommendations. 2. Hypertension, stable. 3. Leukocytosis, resolved. I do not have any source of infection. 4. Acute on chronic kidney disease, resolved. This is her baseline. 5. Hypercholesterolemia. Continue with pravastatin. 6. Chronic obstructive pulmonary disease/emphysema in a nonsmoker patient, aware. Pulmonary department already evaluated this patient. They will continue monitoring this patient after discharge. cc: Miles Win MD
[2018-11-30] MEDS: DUONEB (A & A) INH PRN ×2 (15:58→19:31)
[2018-11-30] MEDS: PROTONIX IV SCH (20:54)
[2018-11-30] MEDS: ATIVAN PO SCH (20:54)
[2018-11-30] MEDS: PRAVACHOL PO SCH (20:54)
[2018-12-01] MEDS: SYMBICORT 160/4.5 MICROGM INHALER INH SCH ×2 (07:29→19:42)
[2018-12-01] MEDS: DUONEB (A & A) INH PRN ×2 (07:29→15:14)
--- NOTE | 2018-12-01 07:46 | EKG Report ---
Test Performed on : 11/30/2018 08:29:45 AM Test Reason : Afib RVR Blood Pressure : / mmHG Vent. Rate : 129 BPM Atrial Rate : 337 BPM P-R Int : 000 ms QRS Dur : 066 ms QT Int : 308 ms P-R-T Axes : 000 057 -83 degrees QTc Int : 451 ms Atrial flutter. with variable AV block. ST & T wave abnormality, consider inferior ischemia ST & T wave abnormality, consider anterolateral ischemia Abnormal ECG When compared with ECG of 29-NOV-2018 07:20, (Unconfirmed) Significant changes have occurred Confirmed by Salazar Barlow MD ([id number]) on 12/01/2018 9:13:41 PM
--- NOTE | 2018-12-01 07:52 | EKG Report ---
Test Performed on : 11/29/2018 07:20:06 AM Test Reason : afib Blood Pressure : / mmHG Vent. Rate : 065 BPM Atrial Rate : 065 BPM P-R Int : 142 ms QRS Dur : 070 ms QT Int : 450 ms P-R-T Axes : 065 060 053 degrees QTc Int : 468 ms Normal sinus rhythm. Normal ECG When compared with ECG of 28-NOV-2018 18:43, (Unconfirmed) No significant change was found Confirmed by Yen MESSINA, Salazar Neves ([id number]) on 12/01/2018 9:12:47 PM
--- NOTE | 2018-12-01 07:53 | EKG Report ---
Test Performed on : 11/28/2018 6:43:01 PM Test Reason : rhythm change Blood Pressure : / mmHG Vent. Rate : 064 BPM Atrial Rate : 064 BPM P-R Int : 144 ms QRS Dur : 068 ms QT Int : 432 ms P-R-T Axes : 050 050 047 degrees QTc Int : 445 ms Normal sinus rhythm. Nonspecific T wave abnormality Abnormal ECG When compared with ECG of 28-NOV-2018 12:47, (Unconfirmed) Sinus rhythm. has replaced Atrial flutter. Vent. rate has decreased BY 58 BPM T wave inversion no longer evident in Inferior leads Nonspecific T wave abnormality has replaced inverted T waves in Anterolateral leads Confirmed by Yen MESSINA, Salazar Neves ([id number]) on 12/01/2018 9:11:35 PM
[2018-12-01] MEDS ORDERED: CLARITIN PO ONE (08:43)
[2018-12-01] MEDS: ELIQUIS PO SCH ×2 (09:08→20:33)
[2018-12-01] MEDS: ALLEGRA PO SCH (09:08)
[2018-12-01] MEDS: CARDIZEM CD PO SCH ×2 (09:08→20:33)
[2018-12-01] MEDS: COLACE PO SCH (09:08)
[2018-12-01] MEDS: TOPROL XL PO SCH (09:08)
[2018-12-01] MEDS: MUCINEX PO SCH ×2 (09:08→20:33)
[2018-12-01] MEDS: SINGULAIR PO SCH (09:08)
[2018-12-01] MEDS: FLONASE NAS SCH (09:08)
--- NOTE | 2018-12-01 10:56 | EKG Report ---
Test Performed on : 12/01/2018 10:36:10 AM Test Reason : Confirm rhythm Blood Pressure : / mmHG Vent. Rate : 073 BPM Atrial Rate : 073 BPM P-R Int : 130 ms QRS Dur : 072 ms QT Int : 394 ms P-R-T Axes : 063 047 044 degrees QTc Int : 434 ms Normal sinus rhythm. Normal ECG When compared with ECG of 30-NOV-2018 08:29, (Unconfirmed) Sinus rhythm. has replaced Atrial flutter. Vent. rate has decreased BY [address] no longer depressed in Inferior leads ST no longer depressed in Anterior leads T wave inversion no longer evident in Inferior leads T wave inversion no longer evident in Anterolateral leads Confirmed by Yen MESSINA, Salazar Neves ([id number]) on 12/01/2018 9:17:25 PM
--- NOTE | 2018-12-01 15:50 | PROGRESS NOTE ---
DATE: 12/01/2018 SUBJECTIVE: Patient is feeling better, at the moment of my physical exam she was in normal sinus rhythm, no chest pain or shortness of breath, she has been complaining of dry cough so I will give her a dose of loratadine, I will continue with cough medication as well. OBJECTIVE: Vital Signs: Temperature 98.3 degrees, pulse 71, respiratory rate 12, blood pressure 130/65, oxygen saturation 100% on room air. HEENT: Head normocephalic. No trauma. PERRLA. Neck: Supple. No JVD. No masses. Central trachea. Chest: Clear to auscultation. No wheezing. Cardiovascular: RRR. No murmurs, no gallops, no rubs. Abdomen: Soft, nontender, nondistended. No hepatosplenomegaly. Extremities: No edema, no clubbing, no cyanosis. Neurological: The patient is alert and oriented x3. No focal deficits. LABORATORY: WBC 8.7, hemoglobin 11.1, hematocrit 32.7, platelet 312,000, sodium 141, potassium 3.7, chloride 106, bicarbonate 22, BUN 19, creatinine 1.1, glucose 89, calcium 8.8. ASSESSMENT AND PLAN: 1. New onset atrial fibrillation with rapid ventricular response, resolved, yesterday and the day before she has some episodes of rapid ventricular response and on and off atrial fibrillation but since yesterday afternoon I believe she has been on normal sinus rhythm, Cardiology Department has evaluated this patient. They want to keep the patient for 24 more hours to see how she does, I believe if she is in normal sinus rhythm tomorrow and the rate is controlled likely she can go home. 2. Hypertension stable. 3. Leukocytosis resolved, I do not have any source of infection. 4. Acute on chronic kidney disease, resolved. 5. Hypercholesterolemia. Continue with pravastatin. 6. Chronic obstructive pulmonary disease/emphysema in a nonsmoker patient, aware, pulmonary department already evaluated this patient. They will continue monitoring this patient after discharge. cc: Miles Win MD
[2018-12-01] MEDS: ATIVAN PO SCH (20:33)
[2018-12-01] MEDS: PROTONIX IV SCH (20:33)
[2018-12-01] MEDS: PRAVACHOL PO SCH (20:33)
[2018-12-02 07:13] VITALS: BP 130/80
[2018-12-02] MEDS: SYMBICORT 160/4.5 MICROGM INHALER INH SCH (08:03)
--- NOTE | 2018-12-02 08:10 | EKG Report ---
Test Performed on : 12/02/2018 07:25:49 AM Test Reason : afib Blood Pressure : / mmHG Vent. Rate : 065 BPM Atrial Rate : 065 BPM P-R Int : 124 ms QRS Dur : 072 ms QT Int : 426 ms P-R-T Axes : 047 049 047 degrees QTc Int : 443 ms Normal sinus rhythm. Normal ECG When compared with ECG of 01-DEC-2018 10:36, No significant change was found Confirmed by Salazar Barlow MD ([id number]) on 12/02/2018 8:47:10 AM
[2018-12-02] MEDS: ALLEGRA PO SCH (08:42)
[2018-12-02] MEDS: MUCINEX PO SCH (08:42)
[2018-12-02] MEDS: CARDIZEM CD PO SCH (08:42)
[2018-12-02] MEDS: ELIQUIS PO SCH (08:42)
[2018-12-02] MEDS: COLACE PO SCH (08:42)
[2018-12-02] MEDS: FLONASE NAS SCH (08:43)
[2018-12-02] MEDS: TOPROL XL PO SCH (08:43)
[2018-12-02] MEDS: SINGULAIR PO SCH (08:43)
--- NOTE | 2018-12-02 09:40 | DISCHARGE SUMMARY ---
ADMISSION DATE: 11/28/2018 DISCHARGE DATE: 12/02/2018 PRIMARY CARE DOCTOR: Dr. David Cordero [facility] COURSE: This is a 78-year-old who started complaining of palpitations on Saturday and went to primary care physician found that she was in atrial fibrillation, but the rate was controlled so she got an appointment with Dr. Andrade in the office. Seen in the office. He ordered many blood tests and she went home, checking her blood pressures. Her heart rate was running 140s, 150s, so she called Dr. Andrade. He recommended she come to the emergency room. When she presented, they gave her some Cardizem IV push. PAST MEDICAL HISTORY: 1. Hypertension. 2. Hypercholesterolemia. 3. COPD with emphysema. She has never smoked. ALLERGIES: Just seasonal allergies. PAST SURGICAL HISTORY: 1. Three neck surgeries. 2. Hysterectomy. 3. Three back surgeries, placement of metallic rods, also fusion in T10 to the sacrum. 4. Two breast biopsies. 5. Two surgeries in the elbow. ADMISSION DIAGNOSES: 1. New onset atrial fibrillation with rapid ventricular response. Start her on some Cardizem drip, put her in [facility]. 2. Hypertension. Blood pressure under good control. 3. Leukocytosis of unknown etiology. No sign of infection. 4. Chronic kidney disease stage 2. 5. Hypercholesterolemia. 6. History of chronic obstructive pulmonary disease and emphysema. She had an echocardiogram on 11/27. Normal right ventricular size. Left ventricle appeared normal size with end-diastolic dimension 4.2 cm. Ejection fraction 70%. Normal left atrial size. Normal right ventricular size. Cardiology, Dr. Andrade was following. [place] she would be a candidate for anticoagulation. I put her on low-dose beta deisy and Cardizem CD 120 to 180 mg daily. So probably will require long-term anticoagulation. I think we put her on Eliquis. She had a Pulmonary consult. She has central lobar paraseptal emphysema, which is probable slight progression over the last 9 years. Her PFTs have been followed serially, last 1 in February nearly normal, except for mild reduction in diffusion capacity. So, her rapid response resolved. She is back in sinus rhythm remains in sinus rhythm. So, felt she could go home today on 12/02/2018. DISCHARGE MEDICATIONS: She will go home on Eliquis 2.5 mg b.i.d., Cardizem CD 120 mg b.i.d., Colace 100 mg a day, Consuelo 60 mg a day, Flonase 1 puff each nostril daily, Mucinex 600 mg b.i.d. Still has some bronchial irritation and cough, Ativan 1 mg at bedtime, Toprol-XL 50 mg daily, Singulair, she was taking 4 mg a day and Pravachol 80 mg a day. FOLLOW-UP: She will follow up with her primary care physician and Cardiology in a couple of weeks. cc: Anthony Rico MD
== END 2018-12-02 10:57 | disposition home or self-care (01) | DRG 310 ==
LOC: ED 16:33 → SUATTDRO 11-28 00:40 → EDIPHOLD 11-28 00:40 → 4N 11-28 12:55 → EDIPHOLD 11-28 13:24 → 3S 11-28 14:04
PROVIDERS: ATTEND Emergency Medicine
CPT/HCPCS: 36415; 71020; 71046; 71250; 80048; 80053; 81001; 83735; 83880; 84443; 84484; 85025; 85610; 85651; 85730; 86140; 87040; 87088; 87275; 87276; 87804; 93005; 93010; 93306; 94640; 94761; 96361; 96365; 96366; 96372; 96375; 96376; 99285; A9270; C9113; J1644; J7030; S0164

== ENCOUNTER 2019-09-08 09:55 | Inpatient (IN) ==
[2019-09-08 12:41] LABS: BASO# 0.03 X1000 (0.0-0.2); BASO% 0.3 % (0.0-0.8); EOS# 0.15 X1000 (0.0-0.7); EOS% 1.3 % (0.0-10.0); HEMATOCRIT 40.7 % (37.0-47.0); HEMOGLOBIN 13.8 g/dL (12.0-16.0); IMM GRAN# 0.02 X1000 (0.0-0.04); IMM GRAN% 0.2 % (0.0-0.5); LYMPH# 2.32 X1000 (1.2-3.4); LYMPH% 19.6 % (20.5-51.1); MCH 31.2 PG (27-31); MCHC 33.9 g/dL (33-37); MCV 92.1 FL (81-99); MONO# 0.81 X1000 (0.11-0.59); MONO% 6.8 % (1.7-9.3); MPV 9.5 FL (7.4-10.4); NEUT# 8.51 X1000 (1.4-6.5); NEUT% 71.8 % (42.2-75.2); PLT 379 X1000 (130-400); RBC 4.42 XMIL (4.2-5.4); RDW 12.9 % (11.5-14.5); WBC 11.84 X1000 (4.8-10.8)
[2019-09-08 12:57] LABS: INR 1.19; PROTIME 15.2 Seconds (11.0-16.0)
[2019-09-08 12:58] LABS: PTT 30.4 Seconds (22.3-41.8)
[2019-09-08 13:10] LABS: ALB/GLOB RATIO 1.6; ALBUMIN 4.1 g/dL (3.5-5.0); CALCIUM 9.3 mg/dL (8.8-10.2); CREATININE 1.3 mg/dL (0.5-0.9); POTASSIUM 4.2 mmol/L (3.5-5.1); TOTAL BILIRUBIN 0.32 mg/dL (0.20-1.00); TOTAL PROTEIN 6.6 g/dL (6.3-8.3)
[2019-09-08 14:00] LABS: URINE SOURCE CLEAN CATCH
[2019-09-08 14:06] LABS: BILIRUBIN URINE NEGATIVE (NEGATIVE); BLOOD URINE NEGATIVE (NEGATIVE); COLOR YELLOW; GLUCOSE URINE NEGATIVE (NEGATIVE); KETONE URINE NEGATIVE (NEGATIVE); LEUKOCYTES URINE NEGATIVE (NEGATIVE); NITRITE URINE NEGATIVE (NEGATIVE); PH URINE 6.5; PROTEIN URINE NEGATIVE (NEGATIVE); SP GRAVITY URINE 1.013; TURBIDITY URINE CLEAR (CLEAR); UR EPITHELIAL CELLS <10 /HPF (<10); URINE BACTERIA NEGATIVE /HPF; URINE RBC TNTC /HPF (<10); URINE WBC <10 /HPF (<10); UROBILINOGEN URINE NORMAL (NORMAL)
[2019-09-08] MEDS ORDERED: TYLENOL PO PRN (19:55)
[2019-09-08] MEDS: COLACE PO SCH (20:36)
[2019-09-08] MEDS: PRAVACHOL PO SCH (20:36)
[2019-09-08] MEDS: SYMBICORT 160/4.5 MICROGM INHALER INH SCH (21:28)
--- NOTE | 2019-09-09 02:13 | HISTORY AND PHYSICAL ---
REASON FOR ADMISSION: Spontaneous pneumothorax. 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 This initially measured 22.25 cm. She was followed in my clinic with serial x-rays without resolution, but with slight increase in size. X-ray yesterday revealed increasing pneumothorax and patient was developing dyspnea at rest. She has been admitted for spontaneous pneumothorax, which has increased in size and shows no signs of resolution. PAST MEDICAL HISTORY: 1. Lymphangioleiomyomatosis mitosis, presumptive. 2. Recurrent pneumothoraces. 3. Anxiety disorder. 4. Atrial fibrillation. 5. Status post 3 cervical spine surgeries and 4 low back surgeries. 6. Status post hysterectomy. 7. Status post cataract surgery. 8. Status post bunionectomy. 9. Asthma. SOCIAL HISTORY: She is a never smoker. No alcohol use. FAMILY HISTORY: Notable for a daughter with lung disease, not fully defined, but may be similar to her mother's lung disease. Mother from hip surgery. Father has emphysema. One brother with lung cancer. REVIEW OF SYSTEMS: Notable for chronic cough and sputum production, shortness of breath, anxiety. Review of systems otherwise negative. PHYSICAL EXAMINATION: GENERAL: Reveals a thin white female resting comfortably and in no distress. VITAL SIGNS: BP 159/60, heart rate 60, respiratory rate 16, oxygen saturation 98%. HEENT: Pupils are equal and reactive. Oropharynx is clear. NECK: Supple. CHEST: Reveals diminished breath sounds at the left lung base. CARDIAC: S1, S2. ABDOMEN: Soft. EXTREMITIES: Without edema. LABORATORIES: White blood count 11.8, hemoglobin 13.8, platelet count 379,000. Sodium 139, potassium 4.2, chloride 102, bicarbonate 26, BUN 22, creatinine 1.3. PT is 15.2, INR is 1.19. Urinalysis does reveal mbo-[id number]-count red blood cells. IMPRESSION: A 79-year-old with 1. Spontaneous pneumothorax. 2. Dyspnea at rest. 3. Presumptive lymphangioleiomyomatosis. 4. Hematuria on current urinalysis. PLAN: 1. Hold anticoagulation. 2. Anticipate chest tube placement tomorrow by Dr. Man Grimes. 3. Anticipate the need for a follow-up urinalysis or additional evaluation of the hematuria. cc: MD David Flores MD
--- NOTE | 2019-09-09 07:19 | GENERAL SURGERY CONSULTATION ---
DATE: 09/08/2019 CHIEF COMPLAINT: Shortness of breath. REASON FOR CONSULTATION: Left spontaneous pneumothorax. HISTORY OF PRESENT ILLNESS: This is a 79-year-old female known to Dr. Ariza. She has a history of underlying lung disease and she has had at least 3 spontaneous pneumothoraces in the past, one of which had a prolonged air leak that was managed by cardiothoracic surgery in [place]. She was a never smoker. Dr. Ariza saw her last week for progressive left-sided pneumothorax. She is chronically short of breath but this has been worse over the last week. PAST MEDICAL HISTORY: Anxiety disorder, asthma, hypertension, hyperlipidemia, numerous degenerative spine operations, neck surgery. PAST SURGICAL HISTORY: Cataract, hysterectomy, breast biopsies, elbow surgery, multiple multilevel spinal fusions, left chest tube and right chest tube x2, one of which was related to trauma. SOCIAL HISTORY: Never smoker. No alcohol. No significant occupational exposures. REVIEW OF SYSTEMS: Ten point review of systems negative, otherwise mentioned in the HPI. FAMILY HISTORY: Reviewed and negative for cancer. OBJECTIVE: General: She is afebrile, pulse 60, blood pressure 159/60, oxygen saturation is 98% on room air. General: She is alert. HEENT: No scleral icterus. No cervical mass. Cardiovascular: Normal rate. Pulmonary: No increased work of breathing. I do not see any subcutaneous air. She does have a left-sided scar both from her back surgery as well as chest tubes. Integument: Warm and dry. Abdomen: Soft, nontender. Psychiatric: Appropriate affect. Peripheral Vascular: No lower extremity edema. LABORATORY DATA: White count is 11, hematocrit is 40. INR is 1.39. Creatinine is 1.3. LFTs are normal. Urinalysis is clear with the exception of some microscopic red blood cells. She does take I believe Xarelto as well or Eliquis. ASSESSMENT AND PLAN: A 79-year-old female with a mildly symptomatic refractory left-sided spontaneous pneumothorax. After discussion with Dr. Ariza, we have recommended chest tube placement. I have placed on the OR schedule tomorrow, make her n.p.o. at midnight. We discussed the risk of bleeding, infection, damage to the lung, persistent air leak or refractory pneumothorax and need for subsequent procedures. She understands all this and consents. We will go the operating room tomorrow for chest tube placement. cc: MD Tereso Williamson MD MTDD
[2019-09-09] MEDS: SYMBICORT 160/4.5 MICROGM INHALER INH SCH ×2 (08:21→10:33)
[2019-09-09] MEDS: FLONASE NAS SCH (10:27)
[2019-09-09] MEDS: ALLEGRA PO SCH (10:28)
[2019-09-09] MEDS: TOPROL XL PO SCH (10:40)
[2019-09-09] MEDS: ALDACTONE PO SCH (10:40)
[2019-09-09] MEDS: CARDIZEM CD PO SCH (10:40)
[2019-09-09] MEDS: VITAMIN D PO SCH (10:40)
[2019-09-09] MEDS: HYDROCHLOROTHIAZIDE PO SCH (10:40)
[2019-09-09] MEDS ORDERED: DIPRIVAN 1% ONE (11:58)
[2019-09-09] MEDS ORDERED: FENTANYL ONE (11:58)
[2019-09-09] MEDS ORDERED: CLINDAMYCIN 600 MG/D5W 600 MG/50 ML IVPB IV ONE (12:03)
[2019-09-09] MEDS ORDERED: CLINDAMYCIN 600 MG/D5W 600 MG/50 ML IVPB ONE (12:06)
[2019-09-09] MEDS ORDERED: XYLOCAINE 1%/EPI 1:100,000 ONE (12:29)
[2019-09-09] MEDS: DILAUDID ONE ×5 (12:58→13:25)
[2019-09-09] MEDS ORDERED: LR 500 ML ONE (13:14)
--- NOTE | 2019-09-09 13:16 | Diag Imaging Result Doc PS360 ---
EXAM: CHEST-1 VIEW HISTORY: chest tube TECHNIQUE: Single view COMPARISON: 09/07/2019 FINDINGS: A left-sided chest tube has been placed since the prior exam. Reexpansion of the left lung with only a tiny apical pneumothorax. Right lung remains well expanded and clear. No cardiomegaly. IMPRESSION: Tiny left pneumothorax with a left chest tube tube Electronically signed by Rony Sanford 09/09/2019 1:13 PM
--- NOTE | 2019-09-09 14:57 | GENERAL SURGERY PROGRESS NOTE ---
DATE: 09/09/2019 SUBJECTIVE: No events overnight. OBJECTIVE: Vital Signs: She is afebrile. No tachycardia. Oxygen saturation 95% on room air. General: She is alert. Cardiovascular: Normal rate. Pulmonary: No increased work of breathing. ASSESSMENT AND PLAN: A 79-year-old female with spontaneous pneumothorax on the left. She is, for most part, asymptomatic, but has failed to resolve with observation as an outpatient. Will plan for a chest tube placement today in the operating room. She is nothing by mouth. Discussed the risk of bleeding, prolonged air leak, damage to lung, need for subsequent procedure. She understands all this and consents. cc: MD Tereso Williamson MD
[2019-09-09] MEDS: NORCO-7.5 PO PRN (21:08)
[2019-09-09] MEDS: COLACE PO SCH (21:09)
[2019-09-09] MEDS: PERIDEX MT SCH (21:09)
[2019-09-09] MEDS: PRAVACHOL PO SCH (21:09)
--- NOTE | 2019-09-09 22:55 | OPERATIVE NOTE ---
PROCEDURE DATE: 09/09/2019 PREOPERATIVE DIAGNOSIS: Left spontaneous pneumothorax. POSTOPERATIVE DIAGNOSIS: Left spontaneous pneumothorax. PROCEDURE PERFORMED: Left 28-Uzbek chest tube placement. ESTIMATED BLOOD LOSS: Of 5 mL. ANESTHESIA: MAC with local. INDICATIONS: This is a female who has underlying lung disease and developed a left spontaneous pneumothorax. OPERATIVE FINDINGS: There was no significant intrapleural adhesions with a small amount of serous pleural fluid. OPERATIVE NOTE: The risks, benefits and alternatives were discussed with the patient and she consented. She was seen preoperatively. The surgical site was marked and confirmed. She was taken to the operating room and placed in the supine position. IV anesthesia was administered. The left chest was prepped with her arm positioned above her head with chlorhexidine, draped in the usual fashion. We identified her previous chest tube scar and went 1 rib space below this just right at the inframammary fold. I made an incision after injecting local anesthetic. We did use a seeker needle to aspirate air at this location. We injected the pleura as well. We made an incision, bluntly carried this down over the rib and entered the chest above and tunneling it slightly and introduced our finger sweeping down the adhesions. A 28-Uzbek chest tube was placed posterior and apically and secured at approximately 12 to 13 cm with 0 silk sutures. It was tidaling well. There was minimal serous pleural fluid. It was connected to a Pleur- evac. Dressings were applied. She tolerated well with no complication. cc: MD Tereso Williamson MD [facility]
--- NOTE | 2019-09-10 02:59 | PULMONOLOGY PROGRESS NOTE ---
DATE: 09/09/2019 SUBJECTIVE: Chest tube has been placed by Dr. Grimes. She is having some pain with inspiration. She is tolerating her clear liquid diet. OBJECTIVE: Vital Signs: Blood pressure 150/65, heart rate of 65, respiratory rate 20, oxygen saturation 99%. HEENT: Pupils are equal and reactive. Oropharynx appears clear. Neck: Supple. Chest: Reveals good air entry bilaterally. Chest tube is secured into the left chest. No air leak noted. Cardiac: Irregular irregular. Normal S1. Normal S2. Abdomen: Soft. Extremities: Without edema. LABORATORIES: Chest x-ray reveals near complete re-expansion of the left lung. IMPRESSION: A 79-year-old with: 1. Spontaneous pneumothorax. 2. Lymphangioleiomyomatosis. 3. Hematuria noted on admission UA. PLAN: 1. Chest tube placement per Dr. Grimes. This has been completed today. 2. Advance diet tomorrow if okay with Dr. Grimes. 3. Repeat urinalysis prior to discharge. cc: Tereso Ariza MD
[2019-09-10] MEDS: SYMBICORT 160/4.5 MICROGM INHALER INH SCH ×3 (03:46→19:18)
[2019-09-10] MEDS: NORCO-7.5 PO PRN ×4 (03:53→22:45)
[2019-09-10] MEDS: CARDIZEM CD PO SCH (10:15)
[2019-09-10] MEDS: ALLEGRA PO SCH (10:16)
[2019-09-10] MEDS: FLONASE NAS SCH (10:16)
[2019-09-10] MEDS: TOPROL XL PO SCH (10:16)
[2019-09-10] MEDS: PERIDEX MT SCH ×2 (10:16→20:01)
[2019-09-10] MEDS: VITAMIN D PO SCH (10:16)
[2019-09-10] MEDS: DILAUDID ONE ×2 (19:54→19:55)
[2019-09-10] MEDS: COLACE PO SCH (20:01)
[2019-09-10] MEDS: PRAVACHOL PO SCH (20:01)
[2019-09-10] MEDS: LOVENOX SUBQ SCH (22:42)
--- NOTE | 2019-09-11 02:52 | PULMONOLOGY PROGRESS NOTE ---
DATE: 09/10/2019 SUBJECTIVE: The patient is awake, alert, and conversant. She reports some shoulder pain with movement. OBJECTIVE: Vital Signs: The patient has been afebrile for the last 24 hours. Blood pressure 120/61, heart rate 56, respiratory rate 20, oxygen saturation 95%. HEENT: Pupils are equal and reactive. Oropharynx appears clear. Neck: Supple. Chest: Reveals crackles at the left base. Chest tube in position. No air leak noted. IMPRESSION: A 79-year-old with: 1. Spontaneous pneumothorax. 2. Lymphangioleiomyomatosis. 3. Hematuria on admission. PLAN: 1. Suction has been removed from the chest tube apparatus. 2. Diet per Dr. Grimes. 3. Chest tube management per Dr. Grimes. 4. DVT prophylaxis. 5. Follow up urinalysis tomorrow. cc: Tereso Ariza MD
--- NOTE | 2019-09-11 03:01 | GENERAL SURGERY PROGRESS NOTE ---
DATE: 09/10/2019 SUBJECTIVE: Doing okay. Has some pain at her chest tube site. OBJECTIVE: General: She is alert. Cardiovascular: Normal rate. Pulmonary: She is on room air. Chest tube is at -20 suction. There is no air leak. Minimal serosanguineous output. IMAGING: I reviewed her x-ray postoperatively, it showed resolution of pneumothorax. ASSESSMENT AND PLAN: This is a 79-year-old female status post left chest tube for a spontaneous pneumothorax. I have water sealed the tube, we will monitor and repeat x-ray in the morning, and possibly remove the tube tomorrow or the next day. I have encouraged her to be out of bed, aggressive pulmonary toileting. She is on appropriate bronchodilators. cc: MD Tereso Williamson MD
--- NOTE | 2019-09-11 07:43 | Diag Imaging Result Doc PS360 ---
EXAM: CHEST-PORTABLE 09/11/2019 HISTORY: ptx TECHNIQUE: AP portable at [id number] COMMENT: There is a chest tube on the left. No evidence of pneumothorax is present. There is improvement in the atelectasis over the left base seen on 09/09/2019. IMPRESSION: Improved left basilar atelectasis. Electronically signed by Dewayne Em 09/11/2019 7:41 AM
[2019-09-11] MEDS: NORCO-7.5 PO PRN ×2 (07:45→21:01)
[2019-09-11] MEDS: ALDACTONE PO SCH (09:28)
[2019-09-11] MEDS: TOPROL XL PO SCH (09:28)
[2019-09-11] MEDS: VITAMIN D PO SCH (09:28)
[2019-09-11] MEDS: HYDROCHLOROTHIAZIDE PO SCH (09:28)
[2019-09-11] MEDS: CARDIZEM CD PO SCH (09:28)
[2019-09-11] MEDS: ALLEGRA PO SCH (09:29)
[2019-09-11] MEDS: FLONASE NAS SCH (09:29)
[2019-09-11] MEDS: PERIDEX MT SCH ×2 (09:29→21:01)
[2019-09-11] MEDS ORDERED: MIRALAX PO PRN (10:41)
[2019-09-11] MEDS ORDERED: MIRALAX PO SCH (11:00)
[2019-09-11] MEDS: SYMBICORT 160/4.5 MICROGM INHALER INH SCH ×2 (11:24→19:02)
[2019-09-11] MEDS ORDERED: HALL'S COUGH LOZENGE MT PRN (13:54)
[2019-09-11 16:54] LABS: URINE SOURCE CLEAN CATCH
[2019-09-11 17:01] LABS: BILIRUBIN URINE NEGATIVE (NEGATIVE); BLOOD URINE NEGATIVE (NEGATIVE); COLOR YELLOW; GLUCOSE URINE NEGATIVE (NEGATIVE); KETONE URINE NEGATIVE (NEGATIVE); LEUKOCYTES URINE NEGATIVE (NEGATIVE); NITRITE URINE NEGATIVE (NEGATIVE); PH URINE 6.5; PROTEIN URINE NEGATIVE (NEGATIVE); SP GRAVITY URINE 1.015; TURBIDITY URINE CLEAR (CLEAR); UROBILINOGEN URINE NORMAL (NORMAL)
[2019-09-11 17:04] LABS: UR EPITHELIAL CELLS <10 /HPF (<10); URINE BACTERIA NEGATIVE /HPF; URINE RBC <10 /HPF (<10); URINE WBC <10 /HPF (<10)
[2019-09-11] MEDS: DUONEB (A & A) INH PRN (19:04)
[2019-09-11] MEDS: COLACE PO SCH (21:01)
[2019-09-11] MEDS: PRAVACHOL PO SCH (21:01)
[2019-09-11] MEDS: LOVENOX SUBQ SCH (21:02)
--- NOTE | 2019-09-12 01:35 | GENERAL SURGERY PROGRESS NOTE ---
DATE: 09/11/2019 SUBJECTIVE: She is doing well. She is having a cough but no real shortness of breath above her baseline. No fevers. OBJECTIVE: Pulse 78, oxygen saturation 96% on room air. She is alert. Her left chest tube is to water seal. There is no air leak. There is minimal drainage. IMAGING: Reviewed her x-ray this morning, it shows no evidence of pneumothorax, no effusion with good position of the tube. ASSESSMENT AND PLAN: A 79-year-old female with spontaneous left pneumothorax related to underlying lung disease. Given her history of recurrent pneumothoraces and air leaks, we will keep her tube to water seal again through the day today. Dr. Walker will follow my patient and the plan is to remove the tube tomorrow if her x-ray looks okay with no further air leak. Otherwise, I will see the patient over the next week, follow up her chest x-ray as an outpatient. cc: MD Tereso Williamson MD
--- NOTE | 2019-09-12 07:10 | Diag Imaging Result Doc PS360 ---
EXAM: CHEST-PORTABLE HISTORY: follow up pneumothorax TECHNIQUE: Single view COMPARISON: 09/11/2019 FINDINGS: There is a left-sided chest tube. No pneumothorax identified. The lungs are well expanded. No pneumonia. No cardiomegaly. IMPRESSION: Stable chest Electronically signed by Rony Sanford 09/12/2019 7:08 AM
[2019-09-12] MEDS: SYMBICORT 160/4.5 MICROGM INHALER INH SCH ×2 (07:51→19:25)
[2019-09-12] MEDS: PERIDEX MT SCH ×2 (08:55→20:46)
[2019-09-12] MEDS: NORCO-7.5 PO PRN (08:55)
[2019-09-12] MEDS: ALLEGRA PO SCH (08:55)
[2019-09-12] MEDS: VITAMIN D PO SCH (08:56)
[2019-09-12] MEDS: CARDIZEM CD PO SCH (08:56)
[2019-09-12] MEDS: TOPROL XL PO SCH (08:56)
[2019-09-12] MEDS: FLONASE NAS SCH (12:40)
--- NOTE | 2019-09-12 12:43 | Diag Imaging Result Doc PS360 ---
EXAM: CHEST-PORTABLE HISTORY: chest tube removal TECHNIQUE: Single view COMPARISON: 6:15 AM FINDINGS: Interval removal of the left-sided chest tube. There is a tiny left pneumothorax. No infiltrates. No cardiomegaly. IMPRESSION: Tiny left pneumothorax following removal of the left chest two Electronically signed by Rony Sanford 09/12/2019 12:41 PM
[2019-09-12] MEDS: DUONEB (A & A) INH PRN (19:25)
--- NOTE | 2019-09-12 19:31 | GENERAL SURGERY PROGRESS NOTE ---
DATE: 09/12/2019 SUBJECTIVE: Patient seems to be doing okay. OBJECTIVE: Vital Signs: Patient is currently afebrile. Her vital signs stable. General: No acute distress. HEENT: Normocephalic, atraumatic. Pupils equal, round, reactive to light. Mucous membranes moist. Oropharynx benign. Neck: Supple. Trachea midline. Cardiovascular: Regular rate and rhythm. Lungs: Grossly clear. No air leak noted on chest tube. Abdomen: Soft, nontender, nondistended. Extremities: Moves all extremities. Neurologic: Grossly intact. Skin: No signs of jaundice. Vascular: All extremities perfused. LABORATORY: None this morning. Chest x-ray from yesterday reviewed. Chest x- ray from this morning is pending. ASSESSMENT AND PLAN: A 79-year-old female with left-sided pneumothorax. Left-sided pneumothorax. At this time we will get an a.m. chest x-ray. If her lung still remains up may consider removing it today. Continue supportive care otherwise. cc: MD Tereso Butterfield MD MTDD
[2019-09-12] MEDS: COLACE PO SCH (20:46)
[2019-09-12] MEDS: LOVENOX SUBQ SCH (20:46)
[2019-09-12] MEDS: PRAVACHOL PO SCH (20:46)
--- NOTE | 2019-09-12 23:34 | GENERAL SURGERY PROGRESS NOTE ---
DATE: 09/12/2019 Chest x-ray this morning showed no pneumothorax. It has been stable for several days. Removed chest tube and once with the motion, placed an occlusive dressing. We will get a chest x-ray later today. Discussed with patient the possibility of a reaccumulation of a pneumothorax, but we will follow up with a chest x-ray around lunchtime. cc: MD Tereso Butterfield MD MTDD
--- NOTE | 2019-09-13 07:34 | Diag Imaging Result Doc PS360 ---
EXAM: CHEST-PORTABLE - 09/13/2019 HISTORY: follow up pneumothorax TECHNIQUE: Portable chest COMPARISON: 09/12/2019 FINDINGS: Heart size is normal. There is an approximately 15% pneumothorax on the left which is mildly increased from prior. There is no consolidation or pleural effusion identified. IMPRESSION: Mild increase in left pneumothorax compared to prior. Electronically signed by Yuniel Vega 09/13/2019 7:32 AM
[2019-09-13] MEDS: FLONASE NAS SCH (08:03)
[2019-09-13] MEDS: ALLEGRA PO SCH (08:08)
[2019-09-13] MEDS: PERIDEX MT SCH ×2 (08:10→21:27)
[2019-09-13] MEDS: CARDIZEM CD PO SCH (08:10)
[2019-09-13] MEDS: VITAMIN D PO SCH (08:10)
[2019-09-13] MEDS: TOPROL XL PO SCH (08:10)
[2019-09-13] MEDS: SYMBICORT 160/4.5 MICROGM INHALER INH SCH ×2 (08:28→19:55)
--- NOTE | 2019-09-13 09:45 | GENERAL SURGERY PROGRESS NOTE ---
DATE: 09/13/2019 SUBJECTIVE: Patient doing okay. She did have a small apical pneumothorax after removing her chest tube yesterday but she has not had any physiologic consequences from this. OBJECTIVE: Vital Signs: The patient is currently afebrile. Her vital signs are stable. General Examination: No acute distress. Cardiovascular: Regular rate and rhythm. Lungs: No increased labored breathing. Abdomen: Soft, nondistended. Chest x-ray from yesterday reviewed. ASSESSMENT AND PLAN: A 79-year-old female with pneumothorax. Pneumothorax. At this time, given her chest tube pull and the reaccumulation, we will repeat a chest x-ray this morning. If it is stable, improving, I think she could probably be discharged but otherwise, we will continue to monitor her. cc: MD Tereso Butterfield MD
[2019-09-13] MEDS: LOVENOX SUBQ SCH (21:27)
[2019-09-13] MEDS: COLACE PO SCH (21:27)
[2019-09-13] MEDS: PRAVACHOL PO SCH (21:27)
--- NOTE | 2019-09-14 06:36 | Diag Imaging Result Doc PS360 ---
EXAM: CHEST-1 VIEW HISTORY: SOB TECHNIQUE: Single view COMPARISON: 09/13/2019 FINDINGS: There is a small left pneumothorax similar to the prior study. The heart is not enlarged. The vessels are not distended. There are no infiltrates. No effusion identified. IMPRESSION: Stable left pneumothorax Electronically signed by Rony Sanford 09/14/2019 6:34 AM
[2019-09-14] MEDS: SYMBICORT 160/4.5 MICROGM INHALER INH SCH (08:17)
[2019-09-14] MEDS: CARDIZEM CD PO SCH (09:14)
[2019-09-14] MEDS: PERIDEX MT SCH (09:14)
[2019-09-14] MEDS: HYDROCHLOROTHIAZIDE PO SCH (09:14)
[2019-09-14] MEDS: VITAMIN D PO SCH (09:15)
[2019-09-14] MEDS: ALLEGRA PO SCH (09:15)
[2019-09-14] MEDS: ALDACTONE PO SCH (09:15)
[2019-09-14] MEDS: TOPROL XL PO SCH (09:15)
[2019-09-14] MEDS: FLONASE NAS SCH (09:17)
[2019-09-14 15:47] VITALS: BP 137/51
--- NOTE | 2019-09-14 23:58 | GENERAL SURGERY PROGRESS NOTE ---
DATE: 09/14/2019 SUBJECTIVE: Feels well. No shortness of breath above baseline. Oxygen saturations high 90s on 2 L. General: She is alert. Cardiovascular: Normal rate. Pulmonary: Equal chest rise. No subcu air. Left chest tube dressings in place. Reviewed her labs and reviewed her x-ray. Her x-ray shows a very trace amount of pneumothorax left side atypically with no subcu air, no mediastinal shift. ASSESSMENT AND PLAN: This is a female with underlying lung disease. She has had a spontaneous pneumothorax this is her 3rd episode. Chest tube been removed and overall she has very minimal residual pneumothorax that has been stable. Dr. Ariza plans let her go home. He will follow chest x-ray as an outpatient. I have discussed patient with him, I am available as needed. cc: MD Tereso Williamson MD
--- NOTE | 2019-09-15 19:43 | DISCHARGE SUMMARY ---
ADMISSION DATE: 09/08/2019 DISCHARGE DATE: 09/14/2019 DISCHARGE MEDICATIONS: 1. Albuterol and ipratropium nebulizers. 2. Consuelo 60 mg daily. 3. Fluticasone nasal spray 1 daily each nostril. 4. Colace 100 mg at bedtime. 5. Symbicort 160/4.5 mcg 2 puffs twice a day. 6. Vitamin D3 1000 units 1 tablet each day. 7. Spironolactone 1 tablet as directed. 8. Pravachol daily. 9. Eliquis 2.5 mg p.o. twice a day. 10. Cardizem CD 120 mg p.o. daily. 11. Metoprolol 50 mg p.o. daily. 12. Hydrochlorothiazide. 13. Lorazepam 1 tablet every 24 hours p.r.n. anxiety/insomnia. ADMISSION DIAGNOSIS: Spontaneous pneumothorax. DISCHARGE DIAGNOSIS: Spontaneous pneumothorax. HOSPITAL COURSE: The patient had been followed as an outpatient with a spontaneous pneumothorax which continued to enlarge. The patient was admitted to the hospital and evaluated by General Surgery. She had received her morning anticoagulation dose. She was dyspneic with exertion, but not at rest. Chest tube was placed the following day. She did require narcotics for pain control. Her chest tube was removed on 09/12/2019, and a tiny left apical pneumothorax was identified on followup films. This had slightly increased in size on yesterday's film, but was stable today. The patient remained asymptomatic throughout the day. She will be discharged home. She was given instructions to return to the emergency room immediately with increasing shortness of breath. Otherwise, she will follow up in my clinic in 1 week. PLAN: 1. Discharge today. 2. Follow up in my clinic in 1 week, or sooner if clinically indicated. cc: MD David Flores MD
== END 2019-09-14 19:08 | disposition home or self-care (01) | DRG 199 ==
LOC: DIRADM 09:55 → 4N 11:10
PROVIDERS: ADMIT Internal Medicine Pulmonary Disease; ATTEND Internal Medicine Pulmonary Disease

== ENCOUNTER 2019-10-22 07:42 | Inpatient (IN) ==
--- NOTE | 2019-10-22 09:52 | Diag Imaging Result Doc PS360 ---
CHEST-PORTABLE - 10/22/2019 INDICATION: abnormal exam COMPARISON: 10/20/2019 FINDINGS: There is a grossly stable left-sided pneumothorax. The air-fluid level has resolved however. The pneumothorax is about 25%. No infiltrates throughout the lungs. Heart size is normal. IMPRESSION: Stable moderate left pneumothorax. The fluid has resolved. Electronically signed by Yohannes Mak 10/22/2019 9:49 AM
[2019-10-22 10:59] LABS: BASO# 0.03 X1000 (0.0-0.2); BASO% 0.2 % (0.0-0.8); EOS# 0.04 X1000 (0.0-0.7); EOS% 0.3 % (0.0-10.0); HEMATOCRIT 41.3 % (37.0-47.0); HEMOGLOBIN 13.9 g/dL (12.0-16.0); IMM GRAN# 0.03 X1000 (0.0-0.04); IMM GRAN% 0.2 % (0.0-0.5); LYMPH# 2.15 X1000 (1.2-3.4); LYMPH% 16.4 % (20.5-51.1); MCHC 33.7 g/dL (33-37); MONO% 3.8 % (1.7-9.3); MPV 9.4 FL (7.4-10.4); NEUT# 10.35 X1000 (1.4-6.5); NEUT% 79.1 % (42.2-75.2); PLT 369 X1000 (130-400); RBC 4.49 XMIL (4.2-5.4)
[2019-10-22 11:10] LABS: INR 1.02; PROTIME 13.6 Seconds (11.0-16.0)
[2019-10-22 11:11] LABS: PTT 27.7 Seconds (22.3-41.8)
[2019-10-22 11:22] LABS: ALB/GLOB RATIO 1.3; CALCIUM 9.7 mg/dL (8.8-10.2); CREATININE 1.2 mg/dL (0.5-0.9); POTASSIUM 3.9 mmol/L (3.5-5.1); TOTAL BILIRUBIN 0.39 mg/dL (0.20-1.00)
[2019-10-22] MEDS: VITAMIN D PO SCH (17:54)
[2019-10-22] MEDS: TOPROL XL PO SCH (17:54)
[2019-10-22] MEDS: CARDIZEM CD PO SCH (17:54)
--- NOTE | 2019-10-22 19:08 | GENERAL SURGERY CONSULTATION ---
DATE: 10/22/2019 REASON FOR CONSULTATION: Left-sided pneumothorax. CHIEF COMPLAINT: Shortness of breath. HISTORY OF PRESENT ILLNESS: A 79-year-old female known to me, patient of Dr. Akhtar, who has chronic underlying lung disease and has had numerous recurrent bilateral spontaneous pneumothoraces. Most recently she had a chest tube placed back in September, and this resolved, but she went home and shortly reaccumulated pneumothorax. Dr. Ariza has been following this for the last several weeks, has failed to improve. She remains chronically short of breath, and she has now been admitted for further management. PAST MEDICAL HISTORY: Anxiety, asthma. She has interstitial lung disease, hypertension, hyperlipidemia, degenerative spine disease. SURGICAL HISTORY: She has had bilateral chest tubes, multiple breast biopsies, cataract, hysterectomy, numerous orthopedic procedures, elbow, spine, cervical, thoracic, lumbar. SOCIAL HISTORY: She never was a smoker. No alcohol. No significant environmental or occupational exposures. FAMILY HISTORY: Reviewed and negative for cancer. REVIEW OF SYSTEMS: Ten-point review of systems was performed and negative than otherwise mentioned in HPI. PHYSICAL EXAMINATION: Vital signs: She is afebrile, pulse 56, blood pressure 124/61, oxygen saturation 96% on room air. General: She is alert. HEENT: No scleral icterus. No cervical mass. Cardiovascular: Normal rate. Pulmonary: No increased work of breathing. She has equal chest rise bilaterally. Integument: Warm and dry without jaundice. Psychiatric: Appropriate affect. Neurologic: No gross deficits. Peripheral vascular: No lower extremity edema. LABORATORY DATA: White count 13, hematocrit 41. INR is 1.02. Creatinine is 1.2. LFTs normal. Albumin is 4.0. I reviewed her x-ray that shows a left-sided pneumothorax of approximately 25%. There is no consolidation. No masses. ASSESSMENT AND PLAN: A 79-year-old female with recurrent pneumothorax. She improved rapidly with her last 2 but unfortunately reaccumulated as an outpatient. She never really had a documented air leak; however, after discussion with Dr. Ariza, we discussed pros and cons between pleurodesis or even outpatient Heimlich valve. We will see how she progresses, but as of now, the plan is for outpatient Heimlich valve with more delayed removal. We have discussed the operation extensively with the patient. She understands. We will make her n.p.o. at midnight due to OR availability and plan on placing chest tube in the morning on the left side. cc: MD Tereso Williamson MD
[2019-10-22] MEDS: SYMBICORT 160/4.5 MICROGM INHALER INH SCH (20:29)
[2019-10-22] MEDS: DUONEB (A & A) INH PRN (20:29)
[2019-10-22 21:07] LABS: URINE SOURCE CLEAN CATCH
[2019-10-22 21:17] LABS: BILIRUBIN URINE NEGATIVE (NEGATIVE); BLOOD URINE NEGATIVE (NEGATIVE); COLOR STRAW; GLUCOSE URINE NEGATIVE (NEGATIVE); KETONE URINE NEGATIVE (NEGATIVE); LEUKOCYTES URINE NEGATIVE (NEGATIVE); NITRITE URINE NEGATIVE (NEGATIVE); PH URINE 6.5; PROTEIN URINE NEGATIVE (NEGATIVE); TURBIDITY URINE CLEAR (CLEAR); UROBILINOGEN URINE NORMAL (NORMAL)
[2019-10-22 21:20] LABS: UR EPITHELIAL CELLS <10 /HPF (<10); URINE BACTERIA NEGATIVE /HPF; URINE RBC <10 /HPF (<10); URINE WBC <10 /HPF (<10)
[2019-10-22] MEDS: COLACE PO SCH (23:12)
[2019-10-22] MEDS: PRAVACHOL PO SCH (23:12)
--- NOTE | 2019-10-23 02:56 | HISTORY AND PHYSICAL ---
REASON FOR ADMISSION: Pneumothorax. HISTORY OF PRESENT ILLNESS: Ms. La is a 79-year-old white female with asthma, lymphangioleiomyomatosis with cystic lung disease, and recurrent pneumothoraces who was admitted to the hospital for definitive treatment of a pneumothorax. Ms. La was admitted to the hospital in September for the same process and a chest tube was placed in the left hemithorax. Pneumothorax resolved and she was discharged home only to have the pneumothorax recur within a week. She has been followed for the small pneumothorax which now measures approximately 25% of the left hemithorax. She has dyspnea with minimal exertion and has been frustrated by lack of improvement. PAST MEDICAL HISTORY: 1. Lymphangioleiomyomatosis. 2. Recurrent pneumothoraces. 3. Anxiety disorder. 4. Atrial fibrillation. 5. History of 3 cervical spine surgeries. 6. History of 4 low back surgeries. 7. Status post hysterectomy. 8. Status post cataract surgery. 9. Status post bunionectomy. 10. Asthma. SOCIAL HISTORY: Never smoker. No alcohol use. She does take care of a chronically ill . FAMILY HISTORY: Notable for a daughter with chronic lung disease (lymphangioleiomyomatosis is in the differential). Mother from hip surgery. Father had emphysema. One brother with lung cancer. REVIEW OF SYSTEMS: Notable for chronic cough which is intermittently productive, recurrent shortness of breath, anxiety. PHYSICAL EXAMINATION: GENERAL: Reveals a well-developed, well-nourished female resting comfortably and in no distress. VITAL SIGNS: BP 134/96, heart rate 65, respiratory rate 19, oxygen saturation 96%. HEENT: Pupils are equal and reactive. Oropharynx is clear. NECK: Supple. CHEST: Reveals decreased breath sounds in the left hemithorax. CARDIAC: S1-S2. ABDOMEN: Soft. EXTREMITIES: Without edema. LABORATORIES: Chest x-ray reveals pneumothorax in the left chest measuring approximately 25%. There may be slight shift of the mediastinum. The patient has significant thoracolumbar disease with rods in position. IMPRESSION: A 79-year-old with: 1. Recurrent pneumothoraces. 2. Presumptive lymphangioleiomyomatosis. 3. Dyspnea with minimal exertion. RECOMMENDATION: Anticipate chest tube placement tomorrow. Doxycycline is being considered given the recurrent nature of her disease to be utilized for pleurodesis. A Heimlich valve is preferred if possible so that she can be discharged and followed if the lung will expand. PLAN: Chest tube placement tomorrow to re-expand the lung followed by Heimlich valve with possible discharge and outpatient followup. cc: MD David Flores MD
[2019-10-23] MEDS: TOPROL XL PO SCH (08:15)
[2019-10-23] MEDS ORDERED: DIPRIVAN 1% ONE (10:29)
[2019-10-23] MEDS ORDERED: XYLOCAINE-MPF 2% ONE (10:30)
[2019-10-23] MEDS ORDERED: XYLOCAINE 1%/EPI 1:100,000 ONE (10:31)
[2019-10-23] MEDS ORDERED: CLINDAMYCIN 600 MG/D5W 600 MG/50 ML IVPB ONE (11:25)
[2019-10-23] MEDS: VITAMIN D PO SCH (11:40)
[2019-10-23] MEDS: CARDIZEM CD PO SCH (11:40)
[2019-10-23] MEDS: DILAUDID ONE ×2 (12:02→12:11)
--- NOTE | 2019-10-23 12:10 | Diag Imaging Result Doc PS360 ---
EXAM: CHEST-PORTABLE HISTORY: CHEST TUBE PLACEMNT TECHNIQUE: Single view COMPARISON: 10/22/2019 FINDINGS: A left-sided chest tube has been placed since the prior exam. Marked decrease in the size of the left pneumothorax. No cardiomegaly. No pulmonary edema. No pneumonia. IMPRESSION: Interval improvement Electronically signed by Rony Sanford 10/23/2019 12:08 PM
[2019-10-23] MEDS: ALDACTONE PO SCH (16:41)
[2019-10-23] MEDS: NORCO-5 PO PRN (17:28)
[2019-10-23] MEDS: MORPHINE IV PRN ×2 (19:45→23:32)
[2019-10-23] MEDS: PRAVACHOL PO SCH (19:46)
[2019-10-23] MEDS: COLACE PO SCH (19:46)
[2019-10-23] MEDS: PERIDEX MT SCH (19:52)
[2019-10-23] MEDS: SYMBICORT 160/4.5 MICROGM INHALER INH SCH ×2 (19:55→21:28)
--- NOTE | 2019-10-23 22:03 | PULMONOLOGY PROGRESS NOTE ---
DATE: 10/23/2019 SUBJECTIVE: Ms. La has just returned from surgery for chest tube placement. She is sedated. She denies any shortness of breath or pain. OBJECTIVE: Vital Signs: Blood pressure 124/64, heart rate 63, respirations 18, temperature is 98 oral with room air saturations 97% to 100%. Cardiovascular: Regular rate and rhythm. S1, S2 appreciated. She has no lower extremity edema. Peripheral pulses palpable x4 extremities. Calves are nontender. Pulmonary: Breath sounds are clear, diminished on the left, with chest tube in place. Chest rises and falls symmetrically with respiration. Gastrointestinal: Abdomen is soft, nontender, nondistended with bowel sounds in all 4 quadrants. Skin: Warm and dry. LABORATORY DATA: There are no new labs. IMAGING: Chest x-ray revealed a left-sided chest tube has been placed since prior exam. Marked decrease in the size of left pneumothorax. No cardiomegaly. No pulmonary edema. No pneumonia. IMPRESSION: 1. Recurrent pneumothoraces. 2. Presumptive lymphangioleiomyomatosis. 3. Dyspnea with minimal exertion. 4. Status post left chest tube. PLAN: continue with breathing treatments every 4-6 hours p.r.n. as well as her Symbicort incentive spirometer every 4 hours. Repeat a chest x-ray in the morning. As of now, the plan is outpatient Heimlich valve with more delayed removal per General Surgery. Plan was discussed with Dr. Ariza. Dictated by YULIANA Wilson for Tereso Ariza MD cc: YULIANA Wilson MD [facility]
[2019-10-24] MEDS: COLACE PO SCH ×2 (01:23→22:02)
[2019-10-24] MEDS: PERIDEX MT SCH ×3 (01:24→22:02)
[2019-10-24] MEDS: PRAVACHOL PO SCH ×2 (01:24→22:01)
[2019-10-24] MEDS: NORCO-5 PO PRN (03:05)
--- NOTE | 2019-10-24 04:22 | OPERATIVE NOTE ---
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 PROCEDURE PERFORMED: Placement of left-sided chest tube. ANESTHESIA: MAC with local. INDICATIONS: The patient has underlying lung disease. She has had numerous recurrent bilateral pneumothoraces and has had 1 that has failed to improve as an outpatient. OPERATIVE NOTE: Risks, benefits, alternatives were discussed with the patient, she consented to the procedure, seen preoperative area, surgical site was marked. She was taken to the operating room, placed supine position. IV anesthesia was administered. Chest prepped with chlorhexidine solution, draped in usual fashion with the arm positioned above her head and secured. After a time-out, I made an incision just anterior to her previous chest tube site and carried this above the level of the rib, entered the pleural cavity and a small arriaga of air was noted. We ensured that there was no pleural adhesions. There was not. A 28-Macanese tube was placed posterior and apically and secured with 0 silk suture. It tidaled well, was connected to a Pleur-evac device. We felt we had adequate evacuation of pneumothorax. A gauze silk tape dressing was applied. She was woken, transferred back to recovery room, where a chest x-ray was obtained. No complication. Minimal EBL. cc: MD Tereso Williamson MD
[2019-10-24] MEDS: DUONEB (A & A) INH PRN ×3 (08:16→19:33)
--- NOTE | 2019-10-24 09:02 | Diag Imaging Result Doc PS360 ---
EXAM: CHEST-1 VIEW 10/24/2019 HISTORY: pneumothorax TECHNIQUE: Erect AP portable at 0833 COMMENT: There is a chest tube on the left. There is atelectasis versus pneumonia in the left lower lobe. There is blunting of costophrenic angle consistent with a small pleural effusion. Compared to 10/23/2019 there has been no appreciable change considering differences in technique. There is no residual pneumothorax. IMPRESSION: Resolution of left pneumothorax, otherwise stable since 10/23/2019. Electronically signed by Dewayne Em 10/24/2019 8:59 AM
[2019-10-24] MEDS: CARDIZEM CD PO SCH (10:31)
[2019-10-24] MEDS: VITAMIN D PO SCH (10:31)
[2019-10-24] MEDS: TOPROL XL PO SCH (10:31)
[2019-10-24] MEDS: SYMBICORT 160/4.5 MICROGM INHALER INH SCH ×3 (11:30→19:34)
[2019-10-24] MEDS ORDERED: NARCAN IV PRN (12:15)
[2019-10-24] MEDS: MORPHINE PCA IV PRN (13:17)
[2019-10-24] MEDS: LR 1,000 ML IV SCH (13:20)
[2019-10-24] MEDS: LOVENOX SUBQ SCH (13:21)
--- NOTE | 2019-10-24 15:56 | GENERAL SURGERY PROGRESS NOTE ---
DATE: 10/24/2019 Feels okay. She is having some pain, is better today but her pain has been a little delayed. No fevers. OBJECTIVE: Pulse 87, blood pressure 137/58, oxygen saturation 92% on room air. General: She is alert. Chest tubes in place. No air leak. I reviewed her x-ray that shows resolution of pneumothorax. Good position of tube. ASSESSMENT AND PLAN: This pleasant 79-year-old female status post left chest tube placement. I have ordered her PHYSICAL SCIENTIST so there is less of a delay for pain medication. She is on her appropriate home medications for her lungs. I am going to order Lovenox as well. We will keep the tubes to suction today. Plan to water-seal tomorrow and plan for possible Heimlich valve at discharge. cc: MD Tereso Williamson MD
--- NOTE | 2019-10-24 20:18 | PULMONOLOGY PROGRESS NOTE ---
DATE: 10/24/2019 SUBJECTIVE: Ms. La is sitting up at the bedside talking on the phone. She denies any pain or shortness of breath. OBJECTIVE: Vital Signs: Blood pressure is 122/59 with heart rate of 62, respirations 18, temperature is 98 degrees, room air saturations 92 to 96 percent. Cardiovascular: Regular rate and rhythm. S1, S2 appreciated. She has no lower extremity edema with peripheral pulses palpable x4 extremities. Pulmonary: Breath sounds are clear throughout. Chest rises and falls symmetric with respiration. Left-sided chest tube is taped securely. There is no air leak. Dressing is dry and intact. Gastrointestinal: Abdomen is soft, nontender, nondistended with bowel sounds in all 4 quadrants. Neurologic: She is alert and oriented x3. Skin: Warm and dry. IMAGING: Chest x-ray revealed resolution of pneumothorax. ASSESSMENT: 1. Recurrent pneumothoraces. 2. Presumptive lymphangioleiomyomatosis. 3. Dyspnea with minimal exertion. 4. Status post left chest tube placement 10/23/2019. PLAN: We will continue DuoNebs q.4-6 hours as well as her Symbicort. Incentive spirometer. As of now, plan is outpatient Heimlich valve with more delayed removal per General Surgery. Plan was discussed with Dr. Ariza. Dictated by YULIANA Wilson for Tereso Ariza MD cc: YULIANA Wilson MD
[2019-10-25] MEDS: SYMBICORT 160/4.5 MICROGM INHALER INH SCH ×2 (08:12→19:38)
[2019-10-25] MEDS: DUONEB (A & A) INH PRN ×3 (08:12→19:37)
--- NOTE | 2019-10-25 09:10 | Diag Imaging Result Doc PS360 ---
EXAM: CHEST-PORTABLE 10/25/2019 HISTORY: ptx TECHNIQUE: AP portable erect at 0900 COMMENT: There is a chest tube in the left hemithorax. There are platelike opacities in both lung bases which have not changed since 10/24/2019. There is no evidence of pneumothorax. IMPRESSION: Stable bibasilar subsegmental atelectasis. Electronically signed by Dewayne Em 10/25/2019 9:07 AM
[2019-10-25] MEDS: CARDIZEM CD PO SCH (10:01)
[2019-10-25] MEDS: VITAMIN D PO SCH (10:02)
[2019-10-25] MEDS: TOPROL XL PO SCH (10:02)
[2019-10-25] MEDS: PERIDEX MT SCH ×2 (10:02→20:26)
[2019-10-25] MEDS: LOVENOX SUBQ SCH (11:04)
[2019-10-25] MEDS: LR 1,000 ML IV SCH (12:04)
[2019-10-25] MEDS: NORCO-5 PO PRN (13:03)
--- NOTE | 2019-10-25 15:01 | PULMONOLOGY PROGRESS NOTE ---
DATE: 10/25/2019 SUBJECTIVE: Ms. La is sitting up in the chair at the bedside. She has no complaints. OBJECTIVE: Vital Signs: Blood pressure is 145/47, with a heart rate of 64, respirations 18, temperature is 97.7 degrees oral, room air saturation is 95% to 97%. HEENT: Head is normocephalic, atraumatic. Mucous membranes are moist. Pupils are equal, round, react to light. EOMs are intact. Cardiovascular: Regular rate and rhythm. S1, S2 appreciated. She has no lower extremity edema. Peripheral pulses are palpable x4 extremities. Pulmonary: Breath sounds are clear. Chest rises and falls symmetric with respiration. Left-sided chest tube is taped securely. There is no air leak. Dressing is dry and intact. Gastrointestinal: Abdomen is soft, nontender, nondistended with bowel sounds in all 4 quadrants. Neurologic: She is alert and oriented x3. Skin: Warm and dry. IMAGING: Chest x-ray reveals a chest tube in the left hemothorax. Platelike opacities at both lung bases have not changed since 10/24/2019. No evidence of pneumothorax. ASSESSMENT: 1. Recurrent pneumothoraces. 2. Presumptive lymphangioleiomyomatosis. 3. Dyspnea with minimal exertion. 4. Status post left chest tube placement, 10/23/2019. 5. Bibasilar atelectasis. PLAN: Will continue DuoNebs and Symbicort, get the patient up in the chair at least twice a day, incentive spirometer every 4 hours. As of now, plan is outpatient Heimlich valve with more delayed removal per General Surgery. Plan was discussed with Dr. Ariza. Dictated by YULIANA Wilson for Tereso Ariza MD cc: YULIANA Wilson MD
--- NOTE | 2019-10-25 15:02 | GENERAL SURGERY PROGRESS NOTE ---
DATE: 10/25/2019 SUBJECTIVE: Doing well. Pain in her chest tube site. No fevers. No tachycardia. Oxygen saturations low to mid 90s on room air. OBJECTIVE: General, she is alert. Left chest tube in place. No air leak. Serous drainage. I reviewed her labs and her x-ray. ASSESSMENT AND PLAN: A 79-year-old female status post left chest tube placement for spontaneous pneumothorax. We will place to water seal based off her x-ray today. We will repeat one tomorrow. cc: MD Tereso Williamson MD
[2019-10-25] MEDS: PRAVACHOL PO SCH (20:26)
[2019-10-25] MEDS: COLACE PO SCH (20:26)
[2019-10-26] MEDS: NORCO-5 PO PRN ×2 (01:04→12:43)
[2019-10-26] MEDS: SYMBICORT 160/4.5 MICROGM INHALER INH SCH ×2 (08:27→19:38)
[2019-10-26] MEDS: TOPROL XL PO SCH (09:30)
[2019-10-26] MEDS: CARDIZEM CD PO SCH (09:30)
[2019-10-26] MEDS: PERIDEX MT SCH ×2 (09:30→22:10)
[2019-10-26] MEDS: VITAMIN D PO SCH (09:30)
[2019-10-26] MEDS: LR 1,000 ML IV SCH (12:39)
[2019-10-26] MEDS: LOVENOX SUBQ SCH (12:39)
--- NOTE | 2019-10-26 14:49 | Diag Imaging Result Doc PS360 ---
EXAM: CHEST-PORTABLE HISTORY: chest tube TECHNIQUE: Single view COMPARISON: 10/25/2019 FINDINGS: There is a left-sided chest tube. There is a tiny left-sided pneumothorax. This is slightly larger than on the prior study. No cardiomegaly. Right lung remains well expanded and clear. IMPRESSION: Tiny left pneumothorax which is slightly larger than on the prior study. Electronically signed by Rony Sanford 10/26/2019 2:47 PM
[2019-10-26] MEDS: ALDACTONE PO SCH (17:07)
--- NOTE | 2019-10-26 20:58 | GENERAL SURGERY PROGRESS NOTE ---
DATE: 10/26/2019 SUBJECTIVE: Clinically about the same. No fevers, no tachycardia. She is on room air saturating high 90s. Her chest tubes to water seal with no air leak, minimal output. She is alert, no acute distress. I reviewed her x-ray, this shows a tiny left apical pneumothorax may be slightly larger than previous. ASSESSMENT AND PLAN: A 79-year-old female with underlying lung disease, poor compliance of the lung. I suspect it is causing this recurrence of pneumothorax and the tube was taken off suction. We have [address] Ari[address], Heimlich valve tomorrow possible doxycycline, pleurodesis. Will discuss with the patient what she would like to do, worried about doxycycline being effective agent but also given the lack of air leak I wonder that without the tube to suction that this pneumothorax will likely progress. Will discuss patient tomorrow what she would like to do, we could bedside pleurodesis with doxycycline if she would like to go this route, otherwise could consider outpatient chest tube with Heimlich valve. cc: MD Tereso Williamson MD
--- NOTE | 2019-10-26 21:55 | PULMONOLOGY PROGRESS NOTE ---
DATE: 10/26/2019 SUBJECTIVE: The patient is awake, alert, and conversant. She reports she is having significant chest pain associated with the chest tube. OBJECTIVE: Vital Signs: The patient has been afebrile for the last 24 hours. Blood pressure 147/54, heart rate 71, respiratory rate 16, oxygen saturation 92% HEENT: Pupils are equal and reactive. Oropharynx is clear. Neck: Supple. Chest: Reveals good air entry bilaterally. Cardiac: S1, S2. Abdomen: Soft. Extremities: Without edema. LABORATORIES: Chest x-ray reveals tiny pneumothorax, left apex. IMPRESSION: A 79-year-old with lymphangioleiomyomatosis with recurrent pneumothoraces. When placed on water-seal, she has a tiny pneumothorax in the left apex. I have discussed the case with Dr. Grimes. At this juncture, I believe we will proceed with a doxycycline pleurodesis followed by chest tube suction to pull the lung wall up, and then consider discharge, at least short term, with a Heimlich valve. cc: Tereso Ariza MD
[2019-10-26] MEDS: COLACE PO SCH (22:10)
[2019-10-26] MEDS: PRAVACHOL PO SCH (22:10)
[2019-10-27] MEDS: MORPHINE PCA IV PRN (05:11)
[2019-10-27] MEDS: TOPROL XL PO SCH (08:37)
[2019-10-27] MEDS: VITAMIN D PO SCH (08:37)
[2019-10-27] MEDS: CARDIZEM CD PO SCH (08:38)
[2019-10-27] MEDS: PERIDEX MT SCH (08:38)
[2019-10-27] MEDS: SYMBICORT 160/4.5 MICROGM INHALER INH SCH (10:50)
[2019-10-27] MEDS: LOVENOX SUBQ SCH (12:50)
--- NOTE | 2019-10-27 15:24 | Diag Imaging Result Doc PS360 ---
CHEST-PORTABLE - 10/27/2019 INDICATION: ptx COMPARISON: 10/26/2019 FINDINGS: Stable left chest tube in good position. Stable trace left pneumothorax of less than 5%. The right lung is clear. No infiltrates. Heart size is normal. IMPRESSION: No change from prior. Electronically signed by Yohannes Mak 10/27/2019 3:22 PM
[2019-10-27 15:40] VITALS: BP 140/63
[2019-10-27] MEDS: LR 1,000 ML IV SCH (17:40)
--- NOTE | 2019-10-27 22:35 | GENERAL SURGERY PROGRESS NOTE ---
DATE: 10/27/2019 SUBJECTIVE: She feels well. No shortness of breath. Pain is better. She is mostly controlled with [place]onson. OBJECTIVE: She is afebrile. No tachycardia. Oxygen saturation is high 90s on room air. Left chest tube is in place, no air leak. DIAGNOSTIC DATA: I have reviewed her x-ray. There is a very small apical pneumothorax which has been stable over the last 3 days. ASSESSMENT/PLAN: I have discussed the patient with Dr. Ariza. We discussed possibility of doxycycline pleurodesis versus outpatient Heimlich valve. I have discussed with the patient. She has elected to go with the Heimlich valve route. I think this is reasonable. If she were to develop recurrent pneumothorax, we will pleurodesis with current chest tube with doxycycline. I discussed this all with the patient. I am going to see her on Saturday and get a chest x-ray. Obviously, Dr. Ariza will follow her as well. We placed a Heimlich valve and secured it with silk suture, and gave her instructions on care. cc: MD Tereso Williamson MD
--- NOTE | 2019-10-28 12:42 | DISCHARGE SUMMARY ---
ADMISSION DATE: 10/22/2019 DISCHARGE DATE: 10/27/2019 REASON FOR ADMISSION: Pneumothorax. DISCHARGE DIAGNOSIS: Pneumothorax, status post chest tube placement. FOLLOWUP: The patient will follow up with Dr. Man Grimes later this week, and with this practitioner early next week. DISCHARGE MEDICATIONS: Albuterol nebulizer every 4 to 6 hours p.r.n., Symbicort 160/4.5 two puffs twice a day, vitamin D3, diltiazem 120 mg daily, Colace 100 mg at bedtime, [place] 5 one to two tablets every 6 hours p.r.n., metoprolol 50 mg daily, Pravachol 40 mg at bedtime, spironolactone 25 mg daily, Eliquis 2.5 mg twice a day. HOSPITAL COURSE: The patient was admitted to the hospital with a moderate-sized pneumothorax. She was evaluated by Surgery, and was taken to the operating room for a chest tube placement by Dr. Grimes. Chest tube was placed to suction with good reexpansion. On water seal, there was a small apical pneumothorax. No overt air leak could be demonstrated while chest tube is in position. Given history of recurrent pneumothorax, a discussion was held as to possible utilization of talc or doxycycline for pleurodesis. The patient elected not to undergo a pleurodesis procedure after all of her questions were answered. The patient will be discharged with the chest tube in place, along with the Heimlich valve. Discussions were held on events to occur if she accidentally pulls the chest tube while at home. She will cover the site and be evaluated in the emergency room. cc: MD Anam Flores MD Michael C. Donham, MD
== END 2019-10-27 18:32 | disposition home or self-care (01) | DRG 199 ==
LOC: DIRADM 07:42 → 4N 08:22
PROVIDERS: ADMIT Internal Medicine Pulmonary Disease; ATTEND Internal Medicine Pulmonary Disease

== ENCOUNTER 2019-11-05 16:24 | Inpatient (IN) ==
--- NOTE | 2019-11-05 18:08 | Diag Imaging Result Doc PS360 ---
EXAM: CHEST-2 VIEWS - 11/05/2019 HISTORY: SOB TECHNIQUE: Chest two views COMPARISON: Prior exam 11/05/2019 FINDINGS: The left chest tube appears to have been withdrawn slightly (by about 2 cm). There is no evidence of pneumothorax. There are COPD changes and lower lung scarring similar to prior. Compared to prior, there are no other acute changes identified. Heart size is normal. IMPRESSION: Apparent interval slight withdrawal of left chest tube. No evidence of pneumothorax. No other acute changes. Electronically signed by Yuniel Vega 11/05/2019 6:06 PM
--- NOTE | 2019-11-05 18:10 | EKG Report ---
Test Performed on : 11/05/2019 5:33:01 PM Test Reason : SOB Blood Pressure : / mmHG Vent. Rate : 111 BPM Atrial Rate : 111 BPM P-R Int : 122 ms QRS Dur : 060 ms QT Int : 298 ms P-R-T Axes : 053 040 -73 degrees QTc Int : [address] & T wave abnormality, consider inferior ischemia ST & T wave abnormality, consider anterolateral ischemia Abnormal ECG When compared with ECG of 05-NOV-2019 17:32, (Unconfirmed) premature ventricular complexes. are no longer present Unconfirmed Result
[2019-11-05 18:48] LABS: BASO# 0.04 X1000 (0.0-0.2); BASO% 0.2 % (0.0-0.8); EOS# 0.02 X1000 (0.0-0.7); EOS% 0.1 % (0.0-10.0); HEMATOCRIT 41.1 % (37.0-47.0); HEMOGLOBIN 13.5 g/dL (12.0-16.0); IMM GRAN# 0.09 X1000 (0.0-0.04); IMM GRAN% 0.4 % (0.0-0.5); LYMPH# 1.44 X1000 (1.2-3.4); LYMPH% 5.9 % (20.5-51.1); MCH 30.5 PG (27-31); MCHC 32.8 g/dL (33-37); MCV 92.8 FL (81-99); MONO# 1.21 X1000 (0.11-0.59); MONO% 4.9 % (1.7-9.3); MPV 9.4 FL (7.4-10.4); NEUT# 21.67 X1000 (1.4-6.5); NEUT% 88.5 % (42.2-75.2); PLT 578 X1000 (130-400); RBC 4.43 XMIL (4.2-5.4); RDW 13.1 % (11.5-14.5); WBC 24.47 X1000 (4.8-10.8)
[2019-11-05 18:49] LABS: INR 1.18; PROTIME 15.1 Seconds (11.0-16.0)
[2019-11-05 18:50] LABS: PTT 31.3 Seconds (22.3-41.8)
[2019-11-05 19:04] LABS: ALB/GLOB RATIO 1.4; ALBUMIN 4.1 g/dL (3.5-5.0); CALCIUM 9.9 mg/dL (8.8-10.2); CREATININE 1.2 mg/dL (0.5-0.9); POTASSIUM 4.9 mmol/L (3.5-5.1); TOTAL BILIRUBIN 0.45 mg/dL (0.20-1.00)
[2019-11-05] MEDS ORDERED: ZOSYN 3.375 GM in NS 50 ML IV ONE (19:50)
[2019-11-05] MEDS ORDERED: VANCOMYCIN 1 GM/NS 1 GM/250 ML IVPB IV ONE (19:50)
[2019-11-05] MEDS ORDERED: MORPHINE IV ONE (19:56)
[2019-11-05] MEDS ORDERED: ZOFRAN IV ONE (20:34)
--- NOTE | 2019-11-05 20:41 | PROVIDER DOCUMENTATION ---
This chart was entered by Nancy Thompson Scribe, acting as scribe for Ramo Baugh MD. HPI-General Adult - General Chief Complaint: Shortness of Breath Stated Complaint: CHEST TUBE PAIN PER PT Time Seen by Provider: 11/05/19 19:32 Source: patient (daughter) Allergies/Adverse Reactions: Patient Allergies Allergy/AdvReac Type Severity Reaction Status Date / Time Tetanus Vaccines and Toxoid Allergy Severe edema Verified 11/28/18 08:49 [Tetanus] azithromycin AdvReac Intermediate NAUSEA/VOMI Verified 11/28/18 08:49 TING cephalexin monohydrate * AdvReac Intermediate NAUSEA/VOMI Verified 11/28/18 08:49 [From Keflex] TING sertraline HCl * AdvReac Intermediate Unknown Verified 11/28/18 08:49 [From Zoloft] sulfamethoxazole AdvReac VOMITING Verified 11/28/18 08:49 [From Bactrim] trimethoprim [From Bactrim] AdvReac VOMITING Verified 11/28/18 08:49 Home Medications: Home Medication List Medication Instructions Recorded Confirmed Last Taken Type Docusate Sodium [Colace] 100 mg PO HS 08/21/12 10/22/19 09/07/19 20:00 History Budesonide/Formoterol Inhaler 2 puff INH RTBID 10/18/16 10/22/19 09/08/19 07:00 History [Symbicort 160/4.5 Microgm Inhaler] Cholecalciferol (Vitamin D3) 1 tab PO DAILY 11/28/18 10/22/19 09/08/19 07:00 History [Vitamin D3] Spironolactone 1 tab PO DIRECTED 11/28/18 10/22/19 09/07/19 07:00 History Apixaban [Eliquis] 2.5 mg PO BID #120 tab 11/30/18 10/22/19 09/08/19 07:00 Rx Diltiazem C.d. [Cardizem Cd] 120 mg PO DAILY #90 cap 11/30/18 10/22/19 09/08/19 07:00 Rx Metoprolol Succinate E.r. [Toprol 50 mg PO DAILY #90 tab 11/30/18 10/22/19 09/08/19 07:00 Rx Xl] PRAVAstatin [Pravachol] 80 mg PO QHS tablet 11/30/18 10/22/19 09/07/19 20:00 Rx Hydrochlorothiazide 12.5 mg PO DIRECTED 09/08/19 10/22/19 09/07/19 07:00 History Albuterol 2.5MG/Ipratrop 0.5MG 3 ml INH Q4-6H PRN PRN neb 09/14/19 10/22/19 Unknown Rx [Duoneb (A & A)] Hydrocodone/APAP 5 mg/325 mg 1 - 2 ea PO Q6H PRN PRN #30 tab 10/27/19 Unknown Rx [Morrow-5] - History of Present Illness -Gen Adult Nature of Presenting Problems: Pt is a 79 yowf with history of recurrent pneumothoraces who was recently hospitalized for placement of chest tube. Patient is now complaining of 8/10 sharp pain around chest tube site. Denies fever. Just seen by Dr. Grimes today. Location of Pain/Injury: reports: other (left chest wall adjacent to chest tube) Quality of Pain: reports: aching, sharp Severity: reports: moderate Onset/Duration: reports: gradual, last night Timing: reports: still present Context/Activities at Onset: reports: rest Modifying Factors: improves with: lying down. worse with: movement Associated Symptoms: reports: chest pain, shortness of breath, other (rigors). denies: cough Similar Symptoms Previously?: No Recently seen or treated by another doctor?: Yes (Dr Grimes this am) - Sickle Cell Pain Related Context Is this pain typical of prior episodes of crisis?: No Review of Systems - Adult - REVIEW OF SYSTEMS - ADULT Constitutional: denies: chills, fever Eyes: reports: no symptoms reported Ears, Nose, Mouth & Throat: reports: no symptoms reported Cardiovascular: reports: see HPI, chest pain. denies: syncope Respiratory: reports: see HPI, shortness of breath. denies: cough Gastrointestinal: denies: abdominal pain, diarrhea, nausea, vomiting Genitourinary: reports: no symptoms reported Musculoskeletal: reports: no symptoms reported Integumentary: reports: no symptoms reported Neurological: denies: dizziness/vertigo, headache/migraines, syncope Psychiatric: reports: no symptoms reported Endocrine: reports: no symptoms reported Hematologic/Lymphatic: reports: no symptoms reported Allergic/Immunologic: reports: no symptoms reported All Other Systems: Reviewed and Negative Past History - Adult - PAST MEDICAL HISTORY-ADULT Review of Records: reports: Old Records Reviewed, Nursing Assessment Review, Medications Reviewed, Social history reviewed & non-contributory. Major Childhood Illnesses: reports: denies history Cardiovascular: reports: HTN, hyperlipidemia Respiratory: reports: bronchitis, COPD Gastrointestinal: reports: denies history Obstetrical/Gynecological: reports: denies history Genitourinary: reports: denies history Musculoskeletal: reports: denies history Neurological: reports: denies history Psychiatric: reports: denies history Endocrine/Immune: reports: denies history Other Conditions: reports: denies history - PRIOR SURGERIES/PROCEDURES Surgical/Procedure History: reports: hysterectomy - IMMUNIZATION STATUS Childhood Immunizations: See Nurse Assessment Flu Vaccine: See Nurse Assessment - FAMILY HISTORY Family History: reviewed, not pertinent - SOCIAL HISTORY Smoking: non-smoker Substance Use: denies Living Situation: family (daughter) Physical Exam-General - PHYSICAL EXAM-ADULT Initial Vital Signs Reviewed: Yes (HR 113) - CONSTITUTIONAL General Appearance: alert, no apparent distress, cachetic - EYES Eyes: other (clear) - HEAD, EARS, NOSE, MOUTH & THROAT HENMT: moist mucous membranes - NECK Neck: supple - RESPIRATORY Respiratory: other (tender over left lower chest at site of chest tube, no crepitus, decreased breath sound on left) - CARDIOVASCULAR Cardiovascular: regular rate, rhythm - GASTROINTESTINAL (ABDOMEN) Abdominal Exam: non tender, soft - LYMPHATIC Lymphatic: no adenopathy - MUSCULOSKELETAL Back Exam: normal inspection, no CVA tenderness Extremity: non-tender Peripheral Pulses: radial (R): 2+, radial (L): 2+ - SKIN Integumentary: normal color, normal turgor - NEUROLOGIC Neurologic: grossly normal Progress - PLAN OF CARE/RESULTS Progress/Plan/Lab Results: Vital Signs - 8 hr 11/05/19 17:18 Temperature 98.7 F Pulse Rate 113 H Respiratory Rate 18 Blood Pressure 128/62 O2 Sat by Pulse Oximetry 99 Laboratory Results - last 24 hr 11/05/19 11/05/19 11/05/19 17:26 17:26 17:26 WBC 24.47 H RBC 4.43 Hgb 13.5 Hct 41.1 MCV 92.8 MCH 30.5 MCHC 32.8 L RDW Std Deviation 13.1 Plt Count 578 H MPV 9.4 Immature Gran % (Auto) 0.4 Neut % (Auto) 88.5 H Lymph % (Auto) 5.9 L [place] % (Auto) 4.9 Eos % (Auto) 0.1 Baso % (Auto) 0.2 Immature Gran # (Auto) 0.09 H Neut # (Auto) 21.67 H Lymph # (Auto) 1.44 [place] # (Auto) 1.21 H Eos # (Auto) 0.02 Baso # (Auto) 0.04 PT INR PTT (Actin FS) Sodium 136 Potassium 4.9 Chloride 99 Carbon Dioxide 23 L Anion Gap 14 BUN 21 Creatinine 1.2 H Estimated GFR/1.73 m2 44 BUN/Creatinine Ratio 18 Glucose 116 H Calculated Osmolality 276 Calcium 9.9 Total Bilirubin 0.45 AST 19 ALT 14 Alkaline Phosphatase 82 Creatine Kinase 109 Troponin T High Sens [id number] Pept 345 Total Protein 7.0 Albumin 4.1 Globulin 2.9 Albumin/Globulin Ratio 1.4 11/05/19 11/05/19 17:26 17:26 WBC RBC Hgb Hct MCV MCH MCHC RDW Std Deviation Plt Count MPV Immature Gran % (Auto) Neut % (Auto) Lymph % (Auto) [place] % (Auto) Eos % (Auto) Baso % (Auto) Immature Gran # (Auto) Neut # (Auto) Lymph # (Auto) [place] # (Auto) Eos # (Auto) Baso # (Auto) PT 15.1 INR 1.18 PTT (Actin FS) 31.3 Sodium Potassium Chloride Carbon Dioxide Anion Gap BUN Creatinine Estimated GFR/1.73 m2 BUN/Creatinine Ratio Glucose Calculated Osmolality Calcium Total Bilirubin AST ALT Alkaline Phosphatase Creatine Kinase Troponin T High Sens 12 Ejb-V-Fzoatlimuno Pept Total Protein Albumin Globulin Albumin/Globulin Ratio Orders Category Date Time Status Cardiac Monitoring DIRECTED Care 11/05/19 17:24 Active Oxygen Therapy- ED Nursing DIRECTED Care 11/05/19 17:24 Active Saline Loc NOW Care 11/05/19 17:24 Active CHEST-2 VIEWS [RAD] Stat Exams 11/05/19 17:24 Completed BLOOD CULTURE [BLDCUL] Stat Lab 11/05/19 19:41 Uncollected CBC WITH ELECTRONIC DIFF [HEME] Stat Lab 11/05/19 17:26 Completed CK PROFILE [SP CHEM] Stat Lab 11/05/19 17:26 Completed COMPREHENSIVE METABOLIC PANEL [CHEM] Stat Lab 11/05/19 17:26 Completed PRO B-NATRIURETIC PEPTIDE Stat Lab 11/05/19 17:26 Completed PROTIME WITH INR [COAG] Stat Lab 11/05/19 17:26 Completed PTT [COAG] Stat Lab 11/05/19 17:26 Completed TROPONIN T HIGH SENSITIVITY Stat Lab 11/05/19 17:26 Completed URINE CULTURE [RM] Stat Lab 11/05/19 19:42 Uncollected CP/SOB/Palp >45 yrs of Age Stat Oth 11/05/19 17:24 Ordered EKG [EKG] Stat Ther 11/05/19 17:24 Draft Result Diagrams: 11/05/19 17:26 11/05/19 17:26 - XRAY 1 XRAY Study: Chest Impression: See EMR Report (EXAM: CHEST-2 VIEWS - 11/05/2019 HISTORY: SOB TECHNIQUE: Chest two views COMPARISON: Prior exam 11/05/2019 FINDINGS: The left chest tube appears to have been withdrawn slightly (by about 2 cm). There is no evidence of pneumothorax. There are COPD changes and lower lung scarring similar to prior. Compared to prior, there are no other acute changes identified. Heart size is normal. IMPRESSION: Apparent interval slight withdrawal of left chest tube. No evidence of pneumothorax. No other acute changes. Electronically signed by Yuniel Vega 11/05/2019 6:06 PM 11/05/19 1806 Interpreting Physician: Yuniel Vega MD Dictated Date/Time: 11/05/19 180 cc: Seamus Mayo MD; David Cordero MD) XRAY Interpretation: NAD - CONSULTS/PCP/HOSPITALIST Notification #1 *Consult/PCP/Hospitalist*: Dr. Walker covering for Time Discussed: 19:45 Reason/Comments: admit to hospitalist, IV antibiotics, order chest CT Consult Disposition: Admit #2 Consult: rush Delacruz Time Discussed: 19:55 Consult Disposition: Admit Departure - Departure Date of Disposition Decision: 11/05/19 Time of Disposition Decision: 19:59 DIAGNOSIS: Postoperative pain Leukocytosis Qualifiers: Leukocytosis type: unspecified Qualified Code(s): D72.829 - Elevated white blood cell count, unspecified Disposition: ADMITTED INPATIENT 09 Certified Medical Emergency: Emergent Condition: Stable Referrals and Follow-Ups: David Cordero MD [Primary Care Provider] - - Critical Care Note This patient required my direct & personal management of CC.: No Attestation - Physician/ KENIA Attestation Patient care was provided by Advanced Practice Provider:: No The physician spent face to face time with patient:: Yes Advanced Practice Provider documentation review:: Supervising physician onsite and consulted in the evaluation and care of this patient. The physician did have a face to face encounter with the patient. This chart was documented by the indicated scribe, (Nancy Thompson, Chloe) and accurately reflects the services I performed and decisions made by me, Ramo Baugh MD, as attested by the provider's signature.
--- NOTE | 2019-11-05 21:47 | Diag Imaging Result Doc PS360 ---
EXAM: CT THORAX W/CONTRAST - 11/05/2019 HISTORY: chest infection TECHNIQUE: CT thorax with intravenous contrast COMPARISON: 11/28/2018 FINDINGS: There is a left chest tube which extends along the major fissure to the mid posterior left chest. There is no pneumothorax identified. There are bullous emphysematous changes and/or other thin-walled air-containing cysts. This appears mildly progressive compared to the prior exam. There is no substantial intracystic fluid identified. There is mild pleural thickening at the inferior left thorax. There is no acute consolidation or pleural effusion identified. There are no substantial enlarged mediastinal or hilar lymph nodes identified. IMPRESSION: Left chest tube in place with tip at the superior aspect of the left major fissure. No evidence of pneumothorax. 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 No discrete intracystic fluid. No indication of pneumonia. This exam was performed using automated exposure control, adjustment of mA or kV according to patient size, and/or use of iterative reconstruction technique. Electronically signed by Yuniel Vega 11/05/2019 9:45 PM
[2019-11-06] MEDS ORDERED: TYLENOL PO PRN (01:29)
[2019-11-06] MEDS ORDERED: ZOFRAN IV PRN (01:29)
[2019-11-06] MEDS ORDERED: VANCOMYCIN IV PER PHARMACY MISC SCH (01:29)
[2019-11-06] MEDS ORDERED: NS 1,000 ML IV ONE (01:29)
[2019-11-06] MEDS: DILAUDID IV PRN ×5 (01:46→18:27)
[2019-11-06 01:48] LABS: URINE SOURCE CLEAN CATCH
[2019-11-06 01:51] LABS: BILIRUBIN URINE NEGATIVE (NEGATIVE); BLOOD URINE NEGATIVE (NEGATIVE); COLOR YELLOW; GLUCOSE URINE NEGATIVE (NEGATIVE); KETONE URINE 10 mg/dL (NEGATIVE); LEUKOCYTES URINE NEGATIVE (NEGATIVE); NITRITE URINE NEGATIVE (NEGATIVE); PROTEIN URINE 70 mg/dL (NEGATIVE); TURBIDITY URINE CLEAR (CLEAR); UR EPITHELIAL CELLS <10 /HPF (<10); URINE BACTERIA NEGATIVE /HPF; URINE RBC <10 /HPF (<10); URINE WBC <10 /HPF (<10); UROBILINOGEN URINE NORMAL (NORMAL)
[2019-11-06 01:57] LABS: SP GRAVITY URINE 1.015
[2019-11-06] MEDS: ZOSYN 2.25 GM in NS 50 ML IV SCH ×4 (02:19→20:56)
[2019-11-06] MEDS ORDERED: VANCOMYCIN 350 MG in NS 100 ML IV ONE (04:00)
--- NOTE | 2019-11-06 07:32 | HISTORY AND PHYSICAL ---
CHIEF COMPLAINT: Shortness of breath and chest tube pain. 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 It looks like she had complained during her stay that she was having pain at the chest tube site; however, I believe this was for the most part resolved as well as it could be and she was discharged home. Tonight, she comes back in with 8/10 sharp pain around the chest tube site which is causing her to have some shortness of breath. She states she has also been having hard chills. Other pain is left chest wall adjacent to the chest tube. She describes it as a sharp aching pain. I believe she was seen by Dr. Grimes earlier yesterday. At any rate, laboratory data was checked in the emergency room. She was noted to have a white blood cell count of 24.27. Surgery was spoken to and wanted her admitted for antibiotic therapy. She will be admitted for further evaluation and treatment. PAST MEDICAL HISTORY: See HPI. Other medical history includes anxiety disorder, atrial fibrillation, asthma. PREVIOUS SURGICAL HISTORY: 1. Three cervical spine surgeries. 2. Four lower back surgeries. 3. Hysterectomy. 4. Cataract surgery. 5. Bunionectomy. SOCIAL HISTORY: No tobacco or alcohol. Takes care of her chronically ill . FAMILY HISTORY: Daughter has chronic lung disease. Mother from hip surgery. Father had emphysema. One brother from lung cancer. ALLERGIES: Tetanus toxoid, azithromycin, Keflex, Zoloft and Bactrim. HOME MEDICATIONS: A list of home medications has not been reconciled. An order was placed for nursing to reconcile home medications. These will be restarted when appropriate. REVIEW OF SYSTEMS: Fourteen point review of systems conducted with the patient. Pertinent positives listed above in the HPI. All other systems reviewed and found to be negative. PHYSICAL EXAMINATION: VITAL SIGNS: Temperature 98.2 degrees, pulse 106, respirations 17, blood pressure 126/42, oxygen saturation 99% on room air. GENERAL: 79-year-old female lying in the ER stretcher, still complaining of 8/10 pain but is nontoxic in appearance. She is in no acute distress. HEENT: Head is atraumatic, normocephalic. Pupils equal, round and reactive to light. Extraocular eye movements intact. Sclerae anicteric. Conjunctivae pink. Oral mucosa is moist. NECK: Supple. No JVD. No thyromegaly. Trachea is midline. No cervical lymphadenopathy. CARDIAC: S1, S2 appreciated. No murmurs, gallops, rubs. LUNGS: Clear to auscultation, equal bilaterally. No rhonchi, wheezes, rales. Symmetric rise and fall of respirations. ABDOMEN: Soft, nondistended, nontender. Bowel sounds present in all 4 quadrants. Normoactive. No pulsatile mass. No organomegaly. EXTREMITIES: No cyanosis, clubbing or edema. 2+ pedal pulses bilaterally. GENITOURINARY: No bladder distention. Patient voids. Otherwise deferred. NEUROLOGICAL: Alert and oriented x3. No focal motor deficits. Otherwise nonfocal examination. Chest x-ray: Shows an apparent interval slight withdrawal of the left chest tube. No evidence of pneumothorax. Noted chronic COPD changes. CT of the chest is pending. LABORATORY DATA: WBC 24.47, hemoglobin 13.5, hematocrit 41.1, platelet count 578,000. Sodium 136, potassium 4.9, chloride 99, carbon dioxide 23, BUN 21, creatinine 1.2, glucose 116. Urine unremarkable. ASSESSMENT AND PLAN: 1. Leukocytosis. 2. Pain at chest tube site. 3. Recurrent pneumothorax. 4. Presumptive lymphangiomyomatosis. PLAN: We will consult Surgery for management of chest tube. We will consult Dr. Ariza, I believe he was the ship keeper who had admitted her on last admission. We will start the patient on vancomycin and Zosyn and await CT results of the chest. Dilaudid 0.5 mg IV q.3 hours p.r.n. Tylenol as needed. Normal saline at 75 mL an hour. Zofran as needed for nausea. Blood cultures are pending. Further recommendations per patient's clinical course. Dictated by YULIANA Abdul for Magdy Rider MD I have performed a face to face diagnostic evaluation. Labs/Xrays- reviewed. Exam- Chest - tenderness around chest tube site, CV- regular, Abd- soft. A/P- Pain at chest tube site, Leukocytosis- Admit , pain control, IV abx. surgery consult. Dr. Rider cc: YULIANA Abdul MD [facility]ENTERJens
[2019-11-06 07:42] LABS: BASO# 0.04 X1000 (0.0-0.2); BASO% 0.1 % (0.0-0.8); HEMATOCRIT 35.8 % (37.0-47.0); HEMOGLOBIN 11.8 g/dL (12.0-16.0); IMM GRAN# 0.17 X1000 (0.0-0.04); IMM GRAN% 0.5 % (0.0-0.5); LYMPH# 1.87 X1000 (1.2-3.4); LYMPH% 5.6 % (20.5-51.1); MCH 30.8 PG (27-31); MCV 93.5 FL (81-99); MONO# 2.53 X1000 (0.11-0.59); MONO% 7.5 % (1.7-9.3); MPV 9.1 FL (7.4-10.4); NEUT# 29.02 X1000 (1.4-6.5); NEUT% 86.3 % (42.2-75.2); PLT 470 X1000 (130-400); RBC 3.83 XMIL (4.2-5.4); RDW 13.3 % (11.5-14.5); WBC 33.63 X1000 (4.8-10.8)
[2019-11-06 08:01] LABS: CALCIUM 9.1 mg/dL (8.8-10.2); CREATININE 1.3 mg/dL (0.5-0.9); POTASSIUM 4.5 mmol/L (3.5-5.1)
[2019-11-06 09:13] LABS: BANDS 6 % (0-1); LYMPHS 4 % (21-51); MONO 6 % (1-9); SEGS 84 % (42-75)
[2019-11-06] MEDS ORDERED: DUONEB (A & A) INH PRN (12:09)
[2019-11-06] MEDS ORDERED: CARDIZEM IV ONE (14:09)
--- NOTE | 2019-11-06 14:22 | PROGRESS NOTE ---
DATE: 11/06/2019 INTERVAL HISTORY: No acute events overnight. Ms. La was admitted for persistent pain at left chest tube site. SUBJECTIVE: At the time of my evaluation, she is still complaining of pain. She denies any shortness of breath or cough; however complaining of left chest tube pain. She denies any nausea or vomiting. She has had low oral intake recently. VITALS: Temperature of 99 degrees, her pulse is 88, respiratory 16. Her blood pressure is 105/50. PHYSICAL EXAMINATION: Mouth: Oral cavity is moist. Lungs: Air entry bilaterally equal. No wheeze, rhonchi, crackles. She does have a left-sided chest tube which is connected to a small tube and it is draining yellowish color material. LABS: Suggestive of leukocytosis of 33,000, hemoglobin of 11.8, platelet 470. She does have normal hematocrit. Chronic kidney disease stage III with creatinine of 1.3. MICROBIOLOGY: Blood cultures and urine culture are in lab. X-RAYS: No new imaging. ASSESSMENT AND PLAN: 1. Leukocytosis with left-sided chest tube pain. Continue intravenous vancomycin and Zosyn considering her multiple hospital admissions the last couple of months. Appreciate Surgery recommendation. I will start her on scheduled dose of acetaminophen, lidocaine patch, oxycodone and will give her intravenous hydromorphone as needed. Follow up blood culture results. 2. Leukocytosis and tachycardia. Continue patient on intravenous fluid resuscitation. Follow up blood culture data to make sure she is not septic. 3. Suspected history of lymphangiomyomatosis. Pulmonology team on board. 4. AFib with RVR with H/o AFib: Resume home Metoprolol ER and Diltiazem CD. I will give her IV Diltiazem one time and see her response. Depending on that I would consider Digoxin IV, Cardizem drip etc. Her Hypotension could be a limiting factor. Resume Home Eliquis. DISPOSITION: Monitor patient inside the hospital as I await further surgical team and Pulmonology recommendation. Plan of care discussed with the patient. Her questions have been answered. ADDENDUM: Her heart rate did not decrease after IV diltiazem. So, I ordered IV Digoxin. I will start her on Diltiazem drip after Digoxin and consult cardiology. I will also get a troponin level. I was not able to get in touch with the general surgeon with whom I wanted to discuss about the plan around her chest tube. cc: Chad Nunn MD MTDD
--- NOTE | 2019-11-06 14:32 | EKG Report ---
Test Performed on : 11/06/2019 2:17:57 PM Test Reason : Tachycardia Blood Pressure : / mmHG Vent. Rate : 159 BPM Atrial Rate : 170 BPM P-R Int : 000 ms QRS Dur : 068 ms QT Int : 278 ms P-R-T Axes : 000 031 260 degrees QTc Int : 452 ms Critical Test Result: High HR Atrial fibrillation. with rapid ventricular response. with premature ventricular or aberrantly conduc pepe complexes. ST & T wave abnormality, consider inferolateral ischemia Abnormal ECG When compared with ECG of 05-NOV-2019 17:33, (Unconfirmed) Atrial fibrillation. has replaced Sinus rhythm. Confirmed by Kamari MESSINA, Jeremías Scanlon ([id number]) on 11/08/2019 9:24:49 AM
[2019-11-06] MEDS: OXY IR PO SCH ×2 (14:48→22:48)
[2019-11-06] MEDS: CARDIZEM CD PO SCH (14:48)
[2019-11-06] MEDS: TYLENOL PO SCH ×2 (14:48→20:56)
[2019-11-06] MEDS: TOPROL XL PO SCH (14:48)
[2019-11-06] MEDS: LIDODERM TOP SCH (14:54)
[2019-11-06] MEDS ORDERED: LANOXIN IV ONE (14:58)
[2019-11-06] MEDS ORDERED: CARDIZEM 100 MG/NS 100 MG/100 ML IVPB IV SCH (15:00)
[2019-11-06] MEDS: NS 1,000 ML IV SCH (17:13)
--- NOTE | 2019-11-06 18:31 | PROVIDER PROGRESS NOTE ---
Progress Note Patient has been seen and examined. A full dictation to follow.
--- NOTE | 2019-11-06 20:08 | CARDIOLOGY CONSULTATION ---
DATE: 11/06/2019 CHIEF COMPLAINT ON PRESENTATION: Shortness of breath and significant increase in pain around her chest tube site on the left. HISTORY OF PRESENT ILLNESS: Ms. La is a pleasant 79-year-old white female with a history of lymphangiomyomatosis and recurrent pneumothoraces. She saw her general surgeon, Dr. Grimes, yesterday and apparently after going home she began having a significant increase in the pain at her chest tube insertion site. She reported having a fever up to around 101 last week but nothing since then. The pain around the site was a very sharp pain. She denies any palpitations. No orthopnea. Otherwise she has been in her usual state of health, and she actually felt quite well yesterday when she went to Dr. Grimes's office. PAST MEDICAL HISTORY: Significant for: 1. Lymphangiomyomatosis. 2. Paroxysmal atrial fibrillation. 3. Hypertension. 4. Asthma. SOCIAL HISTORY: No current tobacco or alcohol. FAMILY HISTORY: Daughter has some sort of chronic lung disease. Mother from complications of a hip surgery. Father had emphysema. A brother had lung cancer. REVIEW OF SYSTEMS: A 10-system review of systems is negative except for those things mentioned in HPI. PHYSICAL EXAMINATION: Vital signs: She is afebrile. Her current heart rate is in the 90s. Blood pressure is 105/50. General: She is in no acute distress. She is very pleasant. HEENT: Oropharynx is moist. Poor dentition. Eye examination is pink conjunctivae and white sclerae. Neck: Examination shows no obvious thyromegaly or thyroid tenderness. Cardiovascular: She sounds to be in an irregularly irregular rhythm. She has no obvious murmurs. She has no S3. She has no lower extremity edema. Chest: Reduced breath sounds on the left. Intact and relatively clear breath sounds on the right. She has no increased work of breathing. The chest tube is noted on the left. Abdomen: Soft, nontender, nondistended. She has no obvious organomegaly. Skin: Warm and dry throughout without any rashes. Neurological: She is moving all extremities well. She has no lateralizing deficits. PERTINENT DATA: She had a chest CT yesterday, which shows a left chest tube in place with the tip at the superior aspect of the left major fissure. No evidence of pneumothorax is present. She has bullous emphysematous changes. No obvious evidence of emphysema. Her EKG on the at 1733 shows sinus tach, nonspecific ST-T changes, rate of 111 beats per minute. Subsequent EKG on the at 1417 shows rapid atrial fibrillation, nonspecific ST-T changes, PVC versus aberrantly conducted beat. White count is 33, which has trended up since the at which time it was 13. Her hematocrit is 35.8. Platelet count is 470,000. She has 84% neutrophils and 6% bands. Sodium is 138, potassium is 4.5, BUN is 20, creatinine is 1.3. Troponin is 21. Initial check was 12. Her lactate is 1.6. She had a normal myocardial perfusion scan that was checked in January of 2019 with normal perfusion and a normal ejection fraction. ASSESSMENT: Ms. La is a 79-year-old female with chronic lung disease as listed above. She had a pneumothorax with subsequent chest tube placement. She has paroxysmal atrial fibrillation and went into atrial fibrillation during this hospitalization. PLAN: Considering her lung disease and history of recurrent pneumothoraces, I would plan on placing her on an antiarrhythmic. We will initiate flecainide 100 mg b.i.d. She has a normal ejection fraction as well as normal perfusion on stress testing. I would continue her on AV erendira blocking agents as you currently have. We will plan on checking an echocardiogram, which can be done tomorrow. cc: Rodrigo Moore MD
[2019-11-06] MEDS: TAMBOCOR PO SCH (20:56)
[2019-11-06] MEDS: COLACE PO SCH (20:56)
[2019-11-06] MEDS: ELIQUIS PO SCH (20:56)
[2019-11-06] MEDS: PRAVACHOL PO SCH (20:56)
--- NOTE | 2019-11-06 21:05 | GENERAL SURGERY CONSULTATION ---
DATE: 11/06/2019 REASON FOR CONSULTATION: Leukocytosis. CHIEF COMPLAINT: Left chest and abdominal pain. HISTORY OF PRESENT ILLNESS: This is a 79-year-old female who has had recurrent spontaneous pneumothorax. She recently had a chest tube placed on the left which was continued as an outpatient with a Heimlich valve. She has had this for approximately 2 weeks. She was actually seen in my office yesterday and was doing quite well. Her chest x-ray over the last 2 weeks has shown resolution of her pneumothorax. The plan was to continue this for 3 weeks with the Heimlich valve prior to chest tube removal. Came to the ER with some chills and rigors. Was found to have leukocytosis, low grade tachycardia, but no fevers, and currently she seems to be about her usual state of health. The Heimlich valve is in place. It is nonpurulent. She states her pain is better. MEDICAL HISTORY: She has interstitial lung disease. She has had spinal deformity surgeries, multiple. SURGICAL HISTORY: Multiple cervical, lumbar, and thoracic spine operations, hysterectomy, cataract, multiple chest tubes. SOCIAL HISTORY: No tobacco, alcohol, or drug use. FAMILY HISTORY: Reviewed and noncontributory. REVIEW OF SYSTEMS: A 10-point review of systems is negative other than what is mentioned in HPI. It was performed. PHYSICAL EXAMINATION: Vital signs: She is afebrile, pulse 88, blood pressure 105/50. General: She is alert, in no acute distress. HEENT: No scleral icterus. No cervical mass. Cardiovascular: Normal rate. Pulmonary: No increased work of breathing. Left chest tube is in place with serosanguineous drainage via Heimlich valve. There is no redness or cellulitis or purulence around the chest tube site. Integument: Warm and dry. Peripheral vascular: No lower extremity edema. Psychiatric: Appropriate affect. Neurologic: No gross deficits. Lymphatic: No cervical adenopathy. LABORATORY DATA: White count was 24 and is up to 33. Hematocrit is 35. Creatinine is 1.3. LFTs are normal. Troponin has climbed from 12 to 21. Lactate is normal. Urinalysis is negative for nitrites and leukocytes. IMAGING: I reviewed her imaging of her chest. It shows expansion of the lung, chronic changes in her lung, but no significant effusion. No evidence of abscess or pneumonia. ASSESSMENT AND PLAN: A 79-year-old female admitted with leukocytosis. She had rigors. This is unclear etiology. She is undergoing workup. Cardiology has been consulted. She says her pain is mostly down in her lower abdomen. She says she was recently treated for a urinary tract infection. Given her leukocytosis, I am going to check a Clostridium difficile. Otherwise, we will continue with our plan for the chest tube to remain another week and plan to remove it next week. I do not see evidence of infection in the chest tube or underlying pneumonia. She is well known to Dr. Ariza. I would recommend engaging him. cc: Anam Grimes MD
[2019-11-06] MEDS: SYMBICORT 160/4.5 MICROGM INHALER INH SCH (22:08)
--- NOTE | 2019-11-06 22:42 | PULMONOLOGY CONSULTATION ---
DATE: 11/06/2019 REQUESTING PROVIDER: YULIANA Frias. REASON FOR CONSULTATION: Chest pain with elevated white blood cell count. HISTORY OF PRESENT ILLNESS: This is a 79-year-old female with a medical history of asthma, lymphangioleiomyomatosis with cystic lung disease, recurrent pneumothorax, anxiety disorder and atrial fibrillation. She is Dr. Ariza's office patient. She presented to the ER last night with acute onset of severe left chest pain around the left chest tube insertion area with shortness of breath. Apparently the left side chest tube was placed on 10/23/[address] Grimes. She had been admitted between and 10/22/2019 to 10/27/2019 with a moderate sized pneumothorax. She was discharged home with the chest tube in place along with the Heimlich valve. She had been evaluated by Dr. Grimes yesterday earlier time, the patient reported that everything was fine at that time but later after she went home for about 1 to 2 hours she developed a severe left chest pain around the left chest tube insertion area. The pain was so severe that she felt like she could not catch her breath at all so she went to the ER for further evaluation. The patient currently is lying in bed with no acute distress noted. She did receive 0.5 mg IV Dilaudid about 1 hour ago. She reports no pain at this time. She does complain of shortness of breath with activities. She denies any sinus issue, sore throat, chill, significant cough, wheezing, bowel habit change, urination discomfort or palpitation. She reports that she had 1 episode of fever at 101 about 1 to 2 weeks ago. She also reports that about 2 weeks ago she had burning feeling with urination and was treated with nitrofurantoin by Dr. Ariza and later the burning sensation with urination already resolved with antibiotic therapy. PAST MEDICAL HISTORY: 1. Asthma . 2. Lymphangioleiomyomatosis with cystic lung disease. 3. Recurrent pneumothoraxes . 4. Anxiety disorder. 5. Atrial fibrillation. 6. Status post 3 cervical spine surgeries. 7. Status post 4 lower back surgeries . 8. Status post hysterectomy. 9. Status post cataract surgery. 10. Status post bunionectomy. SOCIAL HISTORY: The patient lives at home with her family. Her has dementia and she take care of him all the time. She has no history of alcohol, tobacco or illicit drug use. FAMILY HISTORY: Positive for chronic lung disease, emphysema, and lung cancer. REVIEW OF SYSTEMS: A 10-point review of systems was conducted and the pertinent is listed within the HPI, otherwise noncontributory. ALLERGIES: tetanus, azithromycin, Keflex, Zoloft, Bactrim. PHYSICAL EXAMINATION: Vital Signs: Temperature 98.7, blood pressure 102/40, pulse 98, respiratory rate 16, oxygen saturation 96% on room air. General: Well- developed, well-nourished lying in bed with no acute distress noted. HEENT: Atraumatic, normocephalic. Trachea midline. Mucosa pink and moist. Respiratory: Even and unlabored. Symmetrical excursion. Clear to auscultation bilaterally. No wheezing, rhonchi or crackles noted. Cardiovascular: Regular rate and rhythm with S1 and S2 appreciated. Gastrointestinal: Soft, nontender, nondistended. Normoactive bowel sounds in all 4 quadrants. Extremities: No pedal edema. No cyanosis, no clubbing. Dorsalis pedis 2+ bilaterally. Neurologic: Alert, oriented x4. Speech fluent. Follows commands. LAB DATA: White blood cell 43.63, hemoglobin 11.8, hematocrit 35.8, platelet 470,000. Sodium 138, potassium 4.5, chloride 103, carbon dioxide 24, BUN 20, creatinine 1.3, glucose 101. IMAGING DATA: CT thorax with contrast on 11/05/2019 revealed left chest tube in place with tip at the superior aspect of the left major fissure, no evidence of pneumothorax. Mildly progress bullous emphysematous change and or other thin walled air containing cysts and mild pleural thickening at the inferior left thorax. No evidence of pneumothorax, no indication of pneumonia. ASSESSMENT: This is a 79-year-old female with a medical history of asthma, lymphangioleiomyomatosis with cystic lung disease, recurrent pneumothorax, anxiety disorder, atrial fibrillation. She has been admitted since 11/05/2019 with leukocytosis, pain at chest tube site. 1. Leukocytosis worsening. 2. Left side chest tube pain. 3. Acute kidney injury, mild. PLAN: 1. Continue antibiotics including Zosyn and vancomycin. 2. Follow up blood culture and urine culture. Follow up CBC, BMP. 3. Dr. Grimes already been consulted. 4. Further recommendations pending hospital course. Thank you for the courtesy of this consult. Dictated by YULIANA Rivas for Leo Wells MD cc: YULIANA Rivas MD [facility]
[2019-11-07] MEDS: TYLENOL PO SCH ×4 (03:58→21:09)
[2019-11-07] MEDS: OXY IR PO SCH ×4 (03:58→21:09)
[2019-11-07] MEDS: ZOSYN 2.25 GM in NS 50 ML IV SCH (03:59)
[2019-11-07] MEDS: NS 1,000 ML IV SCH ×2 (05:57→09:13)
[2019-11-07 06:19] LABS: CALCIUM 8.5 mg/dL (8.8-10.2); CREATININE 1.2 mg/dL (0.5-0.9); POTASSIUM 3.9 mmol/L (3.5-5.1)
[2019-11-07 06:21] LABS: BASO# 0.02 X1000 (0.0-0.2); BASO% 0.1 % (0.0-0.8); EOS# 0.02 X1000 (0.0-0.7); EOS% 0.1 % (0.0-10.0); HEMATOCRIT 31.1 % (37.0-47.0); HEMOGLOBIN 10.2 g/dL (12.0-16.0); IMM GRAN# 0.08 X1000 (0.0-0.04); IMM GRAN% 0.4 % (0.0-0.5); LYMPH# 1.35 X1000 (1.2-3.4); LYMPH% 6.3 % (20.5-51.1); MCH 30.7 PG (27-31); MCHC 32.8 g/dL (33-37); MCV 93.7 FL (81-99); MONO# 1.21 X1000 (0.11-0.59); MONO% 5.7 % (1.7-9.3); MPV 8.9 FL (7.4-10.4); NEUT# 18.58 X1000 (1.4-6.5); NEUT% 87.4 % (42.2-75.2); PLT 414 X1000 (130-400); RBC 3.32 XMIL (4.2-5.4); RDW 13.5 % (11.5-14.5); WBC 21.26 X1000 (4.8-10.8)
[2019-11-07] MEDS: SYMBICORT 160/4.5 MICROGM INHALER INH SCH ×2 (08:27→19:37)
[2019-11-07] MEDS: TAMBOCOR PO SCH ×2 (09:06→21:09)
[2019-11-07] MEDS: VITAMIN D PO SCH (09:06)
[2019-11-07] MEDS: ELIQUIS PO SCH ×2 (09:06→21:13)
[2019-11-07] MEDS: CARDIZEM CD PO SCH (09:06)
[2019-11-07 09:09] LABS: BANDS 2 % (0-1); LYMPHS 2 % (21-51); MONO 4 % (1-9); SEGS 92 % (42-75)
--- NOTE | 2019-11-07 09:24 | PROGRESS NOTE ---
DATE: 11/07/2019 INTERVAL HISTORY: No acute events overnight. The patient remained in normal sinus rhythm. The patient had converted to normal sinus rhythm. Repeat EKG in the morning time is pending. SUBJECTIVE: Ms. La is denying any complaints. She states she was not able to sleep properly. She denies any chest pain, shortness of breath, or cough. She is complaining of acute intermittent pain around chest tube site, and sometimes in the center of the abdomen. She denies any nausea or vomiting. She has not had any bowel movement. OBJECTIVE: Vital Signs: Temperature 97.7 degrees, pulse 69, respiratory 18, and blood pressure 123/72. She is saturating 95% on 2 L nasal cannula. General: Not in acute distress. HEENT: Oral cavity is moist. Lungs: Air entry bilaterally equal. No wheeze, rhonchi, or crackles. She has a left-sided chest tube which is connected to Heimlich valve with hazy looking drainage. MICROBIOLOGY: No positive data. IMAGING: No new imaging. ASSESSMENT AND PLAN: 1. Leukocytosis with intermittent left-sided chest tube pain and abdominal pain. Blood cultures have been unremarkable. Chest CT was largely unremarkable. Urinalysis did not have any infection and did not have any pyuria though the final urine culture is pending. She did not have any UTI related symptoms. The source of her leukocytosis is unclear at the moment. I will get abdominal x-ray to rule out any intra-abdominal infection. She did have an episode of diarrhea 3 days prior to current presentation. She also had prior history of use of antibiotics 7 to 10 days prior to current presentation. C difficile analysis is pending. I will stop intravenous antibiotics until the source of infection becomes clearer. Blood culture data has been unremarkable. 2. Leukocytosis and tachycardia. I will keep the patient on intravenous fluid resuscitation and follow up with abdominal x-ray. 3. Recurrent spontaneous pneumothorax. The patient had received a chest tube in October of 2019. The plan was to remove the chest tube after 3 weeks. Appreciate surgery recommendation. Pulmonology has been consulted as well. 4. History of paroxysmal atrial fibrillation and now an episode of atrial fibrillation with rapid ventricular rate on 11/06. The patient received intravenous diltiazem and intravenous digoxin on top of her oral diltiazem and oral metoprolol. Cardiology team has been consulted. She has been started on flecainide. Follow up echocardiogram. Continue home Eliquis. 5. History of anxiety. Continue home lorazepam; continue pravastatin for hyperlipidemia; docusate for constipation. 6. Continue scheduled acetaminophen, scheduled oxycodone, and as needed hydromorphone for pain. DISPOSITION: Monitor patient in PVC. Plan of care discussed with the patient. Her questions have been satisfactorily answered. cc: Chad Nunn MD
[2019-11-07] MEDS: TOPROL XL PO SCH (10:26)
[2019-11-07] MEDS: LIDODERM TOP SCH (10:26)
--- NOTE | 2019-11-07 12:28 | PROVIDER PROGRESS NOTE ---
Progress Note Dr. Wells Progress Note/Pulmonary and or critical care We appreciated progress of care, Complications, change in diagnosis, and instructions to patient. Subjective: We note the level of consciousness, bed (chair) position, family presence (if any), level of lethargy, feeling of symptoms, and changes from baseline condition/symptom. Patient is lying in bed with constant hacking dry cough. The cough is so bad that she develops SOB. She does have cough like this at times before admission. She states she was fine at an earlier time and then just starts coughing like that. She apparently had some episodes of atrial fibrillation and hypotension yesterday. She has no fever since admission. Family at the bedside. Objective: Vital Signs: We reviewed EMR current values for Pulse rate, Blood pressure, Pulse rate, respiratory rate and Pulse oximetry. Also noted other values and trends if present (e.g. I/O, CVP). T 97.7, [place] 69, RR 18, BP 123/72 and SaO2 97% on NC 2L. Physical Examination: General: Lying in bed with constant cough and SOB noted. HEENT: Normocephalic. Atraumatic. Trachea midline. Mucosa pink and moist. Chest: Mildly increased work of breathing, but no tachypnea. Symmetrical excursion. Clear to auscultation bilaterally. CVS: Regular rate and rhythm with S1 and S2 appreciated. Abdomen: Soft. Non-tender. nondistended. Normoactive bowel sounds in all 4 quadrants. Extremities: No pedal edema. No cyanosis. No clubbing. Neuro: A/O x4. Speech fluent. Following commands. Labs and Radiology: Reviewed available labs and radiology values available at time of EMR review. Laboratory Results 11/07/19 11/07/19 11/07/19 05:20 05:20 05:20 WBC 21.26 H RBC 3.32 L Hgb 10.2 L Hct 31.1 L MCV 93.7 MCH 30.7 MCHC 32.8 L RDW Std Deviation 13.5 Plt Count 414 H MPV 8.9 Immature Gran % (Auto) 0.4 Neut % (Auto) 87.4 H Lymph % (Auto) 6.3 L [place] % (Auto) 5.7 Eos % (Auto) 0.1 Baso % (Auto) 0.1 Immature Gran # (Auto) 0.08 H Neut # (Auto) 18.58 H Lymph # (Auto) 1.35 [place] # (Auto) 1.21 H Eos # (Auto) 0.02 Baso # (Auto) 0.02 Segmented Neutrophils 92 H Band Neutrophils 2 H Lymphocytes 2 L Monocytes 4 Sodium 133 L Potassium 3.9 Chloride 102 Carbon Dioxide 22 L Anion Gap 9 BUN 22 Creatinine 1.2 H Estimated GFR/1.73 m2 44 BUN/Creatinine Ratio 18 Glucose 111 H Calculated Osmolality 270 Calcium 8.5 L TSH 3.65 Assessment: Leukocytosis. Recent chest tube placement with acute onset of chest pain on the chest tube insertion site. Mild thrombocytosis. History of recurrent pneumothorax Lymphangiomyomatosis. Asthma. Reported recent UTI treated with Nitrofurantoin. Atrial fibrillation with RVR. Plan: Continue current treatment and supportive care per admitting and other teams on the case. Antibiotics including Zosyn and vancomycin held per Dr. Nunn as no infection source identified or signs and symptoms noted. Bronchodilators. Tussionex prn. Surgeon and Scraper Loader Operator on board. Input was appreciated from Admitting MD and other teams on the case. Total evaluation time in minutes: 35
--- NOTE | 2019-11-07 13:16 | GENERAL SURGERY PROGRESS NOTE ---
DATE: 11/07/2019 Ms. La is afebrile. Stable hemodynamics. Fortunately, her white count was down to 21,000 today. We will continue with her antibiotic therapy. Hopefully, she can have her tube removed while she is in the hospital. cc: Renan Zurita MD
--- NOTE | 2019-11-07 14:02 | Diag Imaging Result Doc PS360 ---
EXAM: ABDOMEN FLAT/UPRIGHT INDICATION: Abdominal pain TECHNIQUE: 2 views COMPARISON: None. FINDINGS: Spinal Carr rods are noted. There are metallic clips projecting over the the mid abdomen. There are unremarkable bowel gas and stool patterns. There is no obstructive bowel pattern. There is no evidence of large volume free abdominal gas. There is no evidence of organomegaly. IMPRESSION: No evidence of acute abdominal pathology by plain radiograph. Electronically signed by Mata Solano 11/07/2019 2:00 PM
[2019-11-07] MEDS: TUSSIONEX LIQUID PO PRN (14:32)
--- NOTE | 2019-11-07 14:55 | ECHO REPORT ---
ORDER DATE: 11/06/2019 INDICATION: Atrial fibrillation. FINDINGS: 1. This is a limited study done to evaluate the ejection fraction. Limited visualization of the atria but they appear to be probable normal in size. 2. Mild tricuspid regurgitation. RV systolic pressure of 36. 3. No mitral valve prolapse. Mild mitral regurgitation. 4. Normal RV systolic function. 5. Normal LV systolic function. The estimated EF is greater than 55%. No obvious segmental wall motion abnormalities. 6. No pericardial effusion is identified. 7. Patient appears to be in sinus rhythm during the course of this study. cc: Rodrigo Moore MD
--- NOTE | 2019-11-07 15:34 | CARDIOLOGY PROGRESS NOTE ---
DATE: 11/07/2019 SUBJECTIVE: Patient continues to have pain at the chest tube insertion site but overall this seems relatively stable. PHYSICAL: She is afebrile. Heart rate is 65, blood pressure 123/72.General: She is in no acute distress. Cardiovascular: She sounds to be in a regular rate and rhythm. Current telemetry shows sinus rhythm. She has no lower extremity edema. Chest: Reduced breath sounds on the left side but overall sounds relatively stable. She has no increased work of breathing. Abdomen: Soft, nontender. PERTINENT DATA: Sodium 133, potassium 3.9, BUN 22, creatinine is 1.2. ASSESSMENT: Ms. La is a 79-year-old female with lymphangiomyomatosis. She presented yesterday due to pain at the chest tube site. She was noted to be in atrial fibrillation and has a history of paroxysmal atrial fibrillation. PLAN: We initiated her on flecainide yesterday at 100 mg b.i.d. She seems to be maintaining sinus. I bumped her apixaban up to 5 mg b.i.d. based on her age, weight and renal function. This would be the appropriate dose. For now, continue on her diltiazem and Toprol. cc: Rodrigo Moore MD
--- NOTE | 2019-11-07 17:45 | EKG Report ---
Test Performed on : 11/07/2019 11:22:58 AM Test Reason : FolloW up AFib Blood Pressure : / mmHG Vent. Rate : 068 BPM Atrial Rate : 068 BPM P-R Int : 154 ms QRS Dur : 080 ms QT Int : 406 ms P-R-T Axes : 050 043 -54 degrees QTc Int : 431 ms Normal sinus rhythm. ST & T wave abnormality, consider inferior ischemia ST & T wave abnormality, consider anterolateral ischemia Abnormal ECG When compared with ECG of 06-NOV-2019 14:17, (Unconfirmed) Sinus rhythm. has replaced Atrial fibrillation. Vent. rate has decreased BY [address] no longer depressed in Anterior leads T wave inversion more evident in Anterior leads Confirmed by Kamari MESSINA, Jeremías Scanlon ([id number]) on 11/08/2019 9:25:12 AM
[2019-11-07] MEDS: COLACE PO SCH (21:09)
[2019-11-07] MEDS: PRAVACHOL PO SCH (21:09)
[2019-11-07] MEDS ORDERED: VANCOMYCIN 1,100 MG in NS 250 ML IV SCH (22:00)
[2019-11-08] MEDS: NS 1,000 ML IV SCH (04:06)
[2019-11-08] MEDS: OXY IR PO SCH ×4 (04:06→20:24)
[2019-11-08] MEDS: TYLENOL PO SCH ×4 (05:32→22:46)
[2019-11-08 06:47] LABS: BASO# 0.02 X1000 (0.0-0.2); BASO% 0.1 % (0.0-0.8); EOS# 0.06 X1000 (0.0-0.7); EOS% 0.3 % (0.0-10.0); HEMATOCRIT 30.7 % (37.0-47.0); HEMOGLOBIN 9.9 g/dL (12.0-16.0); IMM GRAN# 0.04 X1000 (0.0-0.04); IMM GRAN% 0.2 % (0.0-0.5); LYMPH# 1.54 X1000 (1.2-3.4); LYMPH% 8.6 % (20.5-51.1); MCH 30.3 PG (27-31); MCHC 32.2 g/dL (33-37); MCV 93.9 FL (81-99); MONO# 0.91 X1000 (0.11-0.59); MONO% 5.1 % (1.7-9.3); MPV 9.3 FL (7.4-10.4); NEUT# 15.36 X1000 (1.4-6.5); NEUT% 85.7 % (42.2-75.2); PLT 429 X1000 (130-400); RBC 3.27 XMIL (4.2-5.4); RDW 13.7 % (11.5-14.5); WBC 17.93 X1000 (4.8-10.8)
[2019-11-08 07:00] LABS: CALCIUM 8.6 mg/dL (8.8-10.2); CREATININE 1.1 mg/dL (0.5-0.9); POTASSIUM 3.8 mmol/L (3.5-5.1)
[2019-11-08] MEDS: SYMBICORT 160/4.5 MICROGM INHALER INH SCH ×2 (08:01→20:10)
--- NOTE | 2019-11-08 08:13 | GENERAL SURGERY PROGRESS NOTE ---
DATE: 11/08/2019 Primary complaint is across her midabdomen. She reports some sharp pains. She did have a liquid bowel movement. Her abdominal x-ray from yesterday does show some stool in her left colon, and that may be the source of her crampy pain. She is afebrile, however, and her hemodynamics are good. She has good breath sounds bilaterally. Her white count today is down to 17,000. I think she is coming to the point where she can have her chest tube removed. My suspicion is that her abdominal complaints are related to the stool in her colon. She is already on Colace. She may require MiraLAX. cc: Rnean Zurita MD
[2019-11-08] MEDS: VITAMIN D PO SCH (08:20)
[2019-11-08] MEDS: ELIQUIS PO SCH ×2 (08:20→20:25)
[2019-11-08] MEDS: CARDIZEM CD PO SCH (08:20)
[2019-11-08] MEDS: TAMBOCOR PO SCH ×2 (08:21→20:24)
[2019-11-08] MEDS: TOPROL XL PO SCH (08:21)
[2019-11-08] MEDS: LIDODERM TOP SCH (08:22)
[2019-11-08] MEDS ORDERED: MIRALAX PO SCH (09:00)
--- NOTE | 2019-11-08 10:47 | PROGRESS NOTE ---
DATE: 11/08/2019 INTERVAL HISTORY: No acute events overnight. She states she had a loose, watery bowel movement in the morning time, and she had abdominal cramping for about 30 minutes, which is improving. Unfortunately, stool sample was not collected. SUBJECTIVE: She denies any chest pain or shortness of breath. She is not coughing a lot. Her chest tube site pain is better than before. OBJECTIVE: Vital Signs: Temperature of 97.7 degrees, pulse 92, respiratory rate 14, blood pressure 124/68. She did have a drop in blood pressure overnight. It is not recorded unfortunately. General: Not in acute distress. HEENT: Oral cavity is moist. Lungs: Air entry appears bilaterally equal with mild decreased air entry in left infrascapular region. She has a lidocaine patch around left-sided chest pain. Cardiovascular: S1, S2 normal. Not tachycardic. Regular. No murmur, rub, or gallop. Abdomen: Soft, nontender. Active bowel sounds. Extremities: No lower extremity edema. Neurologic: She is alert and oriented x3. She was able to go to the bathroom yesterday. LABORATORY DATA: Suggestive of decreasing leukocytosis with WBC of 17,000, hemoglobin 9.9, platelet count 429,000, and 85% neutrophilia. Chloride of 111, BUN 17, creatinine 1.11. MICROBIOLOGY: No positive data so far. IMAGING: Abdomen x-ray performed yesterday had no evidence of acute abdominal pathology. ASSESSMENT AND PLAN: 1. Leukocytosis with intermittent left-sided chest tube site and epigastric abdominal pain of unclear etiology. She received intravenous antibiotics for 72 hours, which were discontinued on 11/07/2019 due to negative culture data. Abdominal x-ray was unremarkable. Clostridium difficile colitis is a possibility. She has had only 1 bowel movement so far, and unfortunately stool sample has not been collected. I will consider starting her on treatment once Clostridium difficile studies are back. 2. Leukocytosis, now improving. Continue to monitor CBC. Her tachycardia has resolved. 3. Atrial fibrillation with rapid ventricular response and history of paroxysmal atrial fibrillation. Continue the patient on current treatment of flecainide, metoprolol, and diltiazem as per Cardiology recommendation. I will closely monitor her blood pressure. She did have evidence of low blood pressure overnight, though she was asymptomatic, and most of the other blood pressure readings have been unremarkable. Continue higher dose of Eliquis. 4. Recurrent spontaneous pneumothorax, status post chest tube in 10/2019. Appreciate Surgical and Pulmonology team recommendation about plan for future removal. 5. Others. Continue lorazepam for anxiety; pravastatin for hyperlipidemia; docusate for constipation; acetaminophen, scheduled oxycodone, and as needed hydromorphone for left-sided chest tube site pain. 6. Disposition. I will transfer the patient to routine medical floor. I will also get an electrocardiogram. I will monitor the patient inside the hospital until I receive further recommendation from Surgery and Pulmonology team, hopefully on Saturday. Plan of care discussed with the patient. She is in agreement. All of her questions have been answered. cc: Chad Nunn MD
--- NOTE | 2019-11-08 11:19 | PROVIDER PROGRESS NOTE ---
Progress Note Dr. Wells Progress Note/Pulmonary and or critical care We appreciated progress of care, Complications, change in diagnosis, and instructions to patient. Subjective: We note the level of consciousness, bed (chair) position, family presence (if any), level of lethargy, feeling of symptoms, and changes from baseline condition/symptom. Patient is lying in bed with no acute distress noted. She is complaining of abdominal cramp with two episodes of loose diarrhea this morning. She states it comes from antibiotics. IV antibiotics has been discontinued by Dr. Nunn yesterday. She still has occasional wet cough. She also states she wants Dr. Ariza to see her tomorrow as Dr. Ariza has been her dredge or barge shore hand for a long time. Objective: Vital Signs: We reviewed EMR current values for Pulse rate, Blood pressure, Pulse rate, respiratory rate and Pulse oximetry. Also noted other values and trends if present (e.g. I/O, CVP). T 97.7, [place] 62, RR 14, BP 124/68 and SaO2 95% on NC 2L. Physical Examination: General: Lying in bed with no acute distress noted. HEENT: Normocephalic. Atraumatic. Trachea midline. Mucosa pink and moist. Chest: Even and unlabored. Symmetrical excursion. Clear to auscultation bilaterally. CVS: Regular rate and rhythm with S1 and S2 appreciated. Abdomen: Soft. Epigastric cramping. nondistended. Normoactive bowel sounds in all 4 quadrants. Extremities: No pedal edema. No cyanosis. No clubbing. Neuro: A/O x4. Speech fluent. Following commands. Labs and Radiology: Reviewed available labs and radiology values available at time of EMR review. Laboratory Results 11/08/19 11/08/19 06:15 06:15 WBC 17.93 H RBC 3.27 L Hgb 9.9 L Hct 30.7 L MCV 93.9 MCH 30.3 MCHC 32.2 L RDW Std Deviation 13.7 Plt Count 429 H MPV 9.3 Immature Gran % (Auto) 0.2 Neut % (Auto) 85.7 H Lymph % (Auto) 8.6 L [place] % (Auto) 5.1 Eos % (Auto) 0.3 Baso % (Auto) 0.1 Immature Gran # (Auto) 0.04 Neut # (Auto) 15.36 H Lymph # (Auto) 1.54 [place] # (Auto) 0.91 H Eos # (Auto) 0.06 Baso # (Auto) 0.02 Sodium 142 Potassium 3.8 Chloride 111 H Carbon Dioxide 20 L Anion Gap 11 BUN 17 Creatinine 1.1 H Estimated GFR/1.73 m2 48 BUN/Creatinine Ratio 15 Glucose 98 Calculated Osmolality 285 Calcium 8.6 L Assessment: Leukocytosis. Improving. Recent chest tube placement with acute onset of chest pain on the chest tube insertion site. Mild thrombocytosis. History of recurrent pneumothorax Lymphangiomyomatosis. Asthma. Diarrhea. Atrial fibrillation with RVR. Plan: Continue current treatment and supportive care per admitting and other teams on the case. Antibiotics including Zosyn and vancomycin held per Dr. Nunn as no infection source identified or signs and symptoms noted. Bronchodilators. Tussionex prn. Culturelle for diarrhea. Surgeon and Information Technology Assistant on board. Transfer to Surgical floor per Admitting MD. Input was appreciated from Admitting MD and other teams on the case. Evaluation time in minutes: 33 minutes.
--- NOTE | 2019-11-08 16:02 | EKG Report ---
Test Performed on : 11/08/2019 1:53:32 PM Test Reason : Follow up heart rhythm Blood Pressure : / mmHG Vent. Rate : 073 BPM Atrial Rate : 073 BPM P-R Int : 164 ms QRS Dur : 086 ms QT Int : 410 ms P-R-T Axes : 062 051 005 degrees QTc Int : 451 ms Normal sinus rhythm. Nonspecific T wave abnormality Abnormal ECG When compared with ECG of 07-NOV-2019 11:22, Nonspecific T wave abnormality has replaced inverted T waves in Inferior leads Nonspecific T wave abnormality has replaced inverted T waves in Lateral leads Confirmed by Layne French MD ([id number]) on 11/11/2019 12:13:03 PM
[2019-11-08] MEDS: COLACE PO SCH (20:25)
[2019-11-08] MEDS: CULTURELLE PO SCH (20:25)
[2019-11-08] MEDS: PRAVACHOL PO SCH (20:25)
[2019-11-08] MEDS: ATIVAN PO PRN (20:26)
[2019-11-09] MEDS: NS 1,000 ML IV SCH (01:38)
[2019-11-09] MEDS: OXY IR PO SCH ×4 (02:27→21:24)
[2019-11-09] MEDS: TYLENOL PO SCH ×4 (06:54→21:24)
[2019-11-09 07:19] LABS: BASO# 0.02 X1000 (0.0-0.2); BASO% 0.1 % (0.0-0.8); EOS# 0.11 X1000 (0.0-0.7); EOS% 0.7 % (0.0-10.0); HEMATOCRIT 31.6 % (37.0-47.0); IMM GRAN# 0.05 X1000 (0.0-0.04); IMM GRAN% 0.3 % (0.0-0.5); LYMPH# 2.16 X1000 (1.2-3.4); LYMPH% 13.7 % (20.5-51.1); MCH 29.8 PG (27-31); MCHC 31.6 g/dL (33-37); MONO# 1.08 X1000 (0.11-0.59); MONO% 6.8 % (1.7-9.3); MPV 9.3 FL (7.4-10.4); NEUT# 12.36 X1000 (1.4-6.5); NEUT% 78.4 % (42.2-75.2); PLT 502 X1000 (130-400); RBC 3.36 XMIL (4.2-5.4); WBC 15.78 X1000 (4.8-10.8)
[2019-11-09 07:39] LABS: CALCIUM 8.6 mg/dL (8.8-10.2); CREATININE 1.1 mg/dL (0.5-0.9)
[2019-11-09] MEDS: SYMBICORT 160/4.5 MICROGM INHALER INH SCH ×2 (09:05→20:00)
--- NOTE | 2019-11-09 09:05 | Diag Imaging Result Doc PS360 ---
EXAM: CHEST-2 VIEWS 11/09/2019 HISTORY: chest tube TECHNIQUE: PA and lateral chest COMMENT: There are bilateral pleural effusions. There is a chest tube on the left. Compared to 11/05/2019 the pleural fluid collections have worsened. There is worsening coarse opacification in both lower lobes which may be due to atelectasis and/or pneumonia. IMPRESSION: Worsened pleural effusions and bibasilar opacities. Electronically signed by Dewayne Em 11/09/2019 9:03 AM
[2019-11-09] MEDS: LIDODERM TOP SCH (09:14)
[2019-11-09] MEDS: CULTURELLE PO SCH ×2 (09:17→20:02)
[2019-11-09] MEDS: TAMBOCOR PO SCH ×2 (09:17→20:02)
[2019-11-09] MEDS: ELIQUIS PO SCH ×2 (09:17→20:02)
[2019-11-09] MEDS: TOPROL XL PO SCH (09:17)
[2019-11-09] MEDS: CARDIZEM CD PO SCH (09:17)
[2019-11-09] MEDS: VITAMIN D PO SCH (09:17)
[2019-11-09] MEDS: TUSSIONEX LIQUID PO PRN (12:33)
[2019-11-09] MEDS ORDERED: LASIX PO ONE (17:34)
[2019-11-09] MEDS: VANCOCIN PO SCH ×2 (18:31→20:02)
--- NOTE | 2019-11-09 18:58 | CARDIOLOGY PROGRESS NOTE ---
DATE: 11/09/2019 SUBJECTIVE: Ms. La has no complaints today other than continued discomfort at the chest tube site although it seems to be improved overall. PHYSICAL: Vital signs: Afebrile. Heart rate is in the 60s to 70s. Blood pressure 152/65. Her telemetry currently shows sinus rhythm. General: She is in no acute distress. Cardiovascular: She is in a regular rate and rhythm. She has no murmurs. She has no S3. She has no lower extremity edema. Chest exam: Sounds to have some mild reduction in breath sounds in the bases, but otherwise clear. She has no increased work of breathing. Abdomen: Is soft, nontender. PERTINENT DATA: Chest x-ray result was reviewed by me. Laboratory data shows white count 15.7, which is improved. Hematocrit 31, platelet count of 502,000. Sodium 143, potassium 4, BUN 14, creatinine is 1.1. ASSESSMENT: Ms. La is a 79-year-old female who presented with pain at the chest tube insertion site. She went into atrial fibrillation. She has a history of paroxysmal atrial fibrillation. PLAN: Considering her lung issues, we have added in flecainide 100 mg b.i.d. to try to maintain sinus rhythm. She seems to be tolerating that well. She is on apixaban 5 mg b.i.d., which is appropriate based on age, weight and kidney function. I do not have any further recommendations or adjustments in medications at this time. She seems to be doing well overall. cc: Rodrigo Moore MD
--- NOTE | 2019-11-09 19:09 | GENERAL SURGERY PROGRESS NOTE ---
DATE: 11/09/2019 SUBJECTIVE: She feels okay. No fevers. No tachycardia. OBJECTIVE: Vital signs: Oxygen saturation 93% on room air. General: She is alert. Chest: Left chest tube is in place. Minimal serosanguineous drainage. LABORATORY DATA: I reviewed her labs. White count is down to 15, hematocrit is 31, creatinine is 1.1. IMAGING: I reviewed her x-ray, shows no pneumothorax, no evidence of focal consolidation. She does have some effusions. ASSESSMENT AND PLAN: This is a 79-year-old female with recurrent pneumothoraces. Based off her x- ray, we plan to remove the tube tomorrow. No real explanation for her white count, and she seems to be getting better. cc: Anam Grimes MD
[2019-11-09] MEDS ORDERED: VANCOMYCIN IV PER PHARMACY MISC SCH (19:45)
[2019-11-09] MEDS: COLACE PO SCH (20:02)
[2019-11-09] MEDS: PRAVACHOL PO SCH (20:02)
[2019-11-09] MEDS: ZOSYN 3.375 GM in NS 50 ML IV SCH (20:06)
[2019-11-09] MEDS: ATIVAN PO PRN (21:24)
[2019-11-09] MEDS ORDERED: VANCOMYCIN 1,400 MG in NS 250 ML IV ONE (22:00)
--- NOTE | 2019-11-09 22:06 | PROGRESS NOTE ---
DATE: 11/09/2019 INTERVAL HISTORY: No acute events overnight. She was transferred to routine surgical floor. SUBJECTIVE: Denies any complaints. She states she did have episodes of diarrhea started today. Has somewhat associated abdominal cramping, digoxin level was 87%, she was feeling a little short of breath. VITALS: Temperature of 98.4 degrees, pulse 110, respiratory 20, blood pressure 158/59, is saturating 93% on room air. PHYSICAL EXAMINATION: She is not in acute distress. Oral cavity is moist. She has decreased air entry with inspiratory crackles especially left infrascapular region adequate air entry with inspiratory crackles on right infrascapular region. She has occasional coughing. S1, S2 normal appears normal sinus rhythm on bedside monitor, no murmur rub or gallop.Abdomen: Soft, nontender. Active bowel sounds. No lower extremity edema. She is alert and oriented x3. LABS: Suggestive of improving WBC to 15,000, normocytic anemia with hemoglobin of 10, platelet count of 502,000, BUN 14, creatinine 1.1. Microbiology stool C difficile antigen was positive, toxin was negative. ASSESSMENT AND PLAN: 1. Leukocytosis with intermittent left-sided chest tube site and epigastric abdominal pain. Her chest tube site pain has been better.She continues to have diarrhea and intermittent abdominal cramps. She also had a recent use of antibiotics and Clostridium difficile antigen is positive. Her abdominal symptoms and leukocytosis could be related to Clostridium difficile colitis. I will start her on oral vancomycin and monitor CBC. 2. Atrial fibrillation with rapid ventricular response with history of paroxysmal atrial fibrillation currently in normal sinus rhythm. I will continue patient on flecainide, metoprolol, diltiazem and higher dose of Eliquis. 3. Shortness of breath: Stop IV fluids and give Lasix. 4. Non productive cough: There is no organized consolidation. I will monitor for clinical features of pneumonia. 5. S/p Chest tube for pneumothorax: Plan is to remove it tomorrow and likely monitor for 24 hours before planning discharge. cc: Chad Nunn MD MTDD
[2019-11-10] MEDS: ZOSYN 3.375 GM in NS 50 ML IV SCH ×4 (03:22→20:07)
[2019-11-10] MEDS: OXY IR PO SCH ×4 (03:23→20:08)
[2019-11-10] MEDS: VANCOCIN PO SCH ×4 (03:23→20:08)
[2019-11-10] MEDS: TYLENOL PO SCH ×3 (05:58→23:38)
[2019-11-10 07:00] LABS: BASO# 0.04 X1000 (0.0-0.2); BASO% 0.3 % (0.0-0.8); EOS% 0.7 % (0.0-10.0); HEMOGLOBIN 10.8 g/dL (12.0-16.0); IMM GRAN# 0.06 X1000 (0.0-0.04); IMM GRAN% 0.4 % (0.0-0.5); LYMPH# 2.14 X1000 (1.2-3.4); LYMPH% 15.3 % (20.5-51.1); MCH 30.2 PG (27-31); MCHC 32.7 g/dL (33-37); MCV 92.2 FL (81-99); MONO% 7.9 % (1.7-9.3); MPV 8.9 FL (7.4-10.4); NEUT# 10.54 X1000 (1.4-6.5); NEUT% 75.4 % (42.2-75.2); PLT 597 X1000 (130-400); RBC 3.58 XMIL (4.2-5.4); RDW 13.5 % (11.5-14.5); WBC 13.98 X1000 (4.8-10.8)
--- NOTE | 2019-11-10 07:08 | PULMONOLOGY PROGRESS NOTE ---
DATE: 11/09/2019 SUBJECTIVE: The patient is awake and alert. She has a slightly wet cough, but cannot produce any sputum. OBJECTIVE: Vital Signs: The patient has been afebrile for the last 24 hours. Heart rate 110, respiratory rate 20, blood pressure 158/59. HEENT: Pupils are equal and reactive. Oropharynx appears clear. Neck: Supple. Chest: Reveals rhonchi bilaterally. Chest tube is examined. The previous serous fluid is now more green-yellow and opaque. Abdomen: Soft. Extremities: Without edema. LABORATORY DATA: White blood count 15,800, hemoglobin 10.0, platelet count 502,000. Sodium 143, potassium 4.0, chloride 110, bicarbonate 20, anion gap 13, BUN 14, creatinine 1.1. IMAGING: Chest x-ray today reveals basilar effusions which are small with increased infiltrates in the bases. IMPRESSION: A 79-year-old with: 1. Recurrent pneumothorax. 2. Leukocytosis. 3. Mild basilar infiltrates on chest x-ray. 4. Chest tube in the left hemithorax as outlined above. RECOMMENDATIONS: 1. Would continue antibiotics at this juncture. Vancomycin and Zosyn have been re-initiated. 2. Agree with Dr. Grimes's assessment. Chest tube to be removed tomorrow. 3. Continue bronchodilators. 4. Follow up chemistries and CBC tomorrow. cc: Tereso Ariza MD
[2019-11-10 07:22] LABS: CALCIUM 8.8 mg/dL (8.8-10.2); POTASSIUM 3.3 mmol/L (3.5-5.1)
[2019-11-10] MEDS: SYMBICORT 160/4.5 MICROGM INHALER INH SCH ×2 (08:01→19:53)
[2019-11-10] MEDS: ELIQUIS PO SCH ×2 (08:24→20:08)
[2019-11-10] MEDS: CARDIZEM CD PO SCH (08:24)
[2019-11-10] MEDS: TOPROL XL PO SCH (08:26)
[2019-11-10] MEDS: TAMBOCOR PO SCH ×2 (08:26→20:08)
[2019-11-10] MEDS: VITAMIN D PO SCH (08:26)
[2019-11-10] MEDS: CULTURELLE PO SCH ×2 (08:26→20:08)
[2019-11-10] MEDS: LIDODERM TOP SCH (08:26)
[2019-11-10] MEDS ORDERED: POTASSIUM CHLORIDE 20% LIQUID PO ONE (12:11)
[2019-11-10] MEDS: PHENERGAN PO PRN (13:28)
--- NOTE | 2019-11-10 14:07 | CARDIOLOGY PROGRESS NOTE ---
DATE: 11/10/2019 SUBJECTIVE: Ms. La had her chest tube removed. Her discomfort has improved significantly. She was placed on antibiotics yesterday, and she has been having significant burden of diarrhea, as well as some nausea. OBJECTIVE: Vital Signs: On physical exam, she is afebrile. Heart rate is 62, blood pressure 150/67. Telemetry currently shows sinus. General: No acute distress. Cardiovascular: She is in a regular rate and rhythm. She has no murmurs. She has no S3. She has no lower extremity edema. Chest: Exam is clear bilaterally. She has no increased work of breathing. Abdomen: Soft, nontender. PERTINENT DATA: Sodium 140, potassium 3.3, BUN 11, creatinine is 1. White count is 13.9. ASSESSMENT: Ms. La is a 79-year-old female who presented with lymphangiomyomatosis and chest tube pain. She has had bouts of atrial fibrillation during this hospitalization. PLAN: We will continue on the flecainide and other atrial fibrillation medications including Eliquis. We will place her on a small dose of Phenergan considering her nausea. In regards to her diarrhea, I will stop the Colace and proceed from there. I would be hesitant to place her into many anti-diarrheals considering her current narcotic dose. cc: Rodrigo Moore MD
[2019-11-10] MEDS ORDERED: ZOFRAN IV PRN (14:37)
--- NOTE | 2019-11-10 15:53 | Diag Imaging Result Doc PS360 ---
CHEST-PORTABLE - 11/10/2019 INDICATION: chest tube removal COMPARISON: 11/09/2019 FINDINGS: The left chest tube has been removed. There is no pneumothorax. Small bilateral pleural effusions. There is improvement in the heterogeneous bilateral infiltrates. IMPRESSION: No complication. Electronically signed by Yohannes Mak 11/10/2019 3:51 PM
[2019-11-10] MEDS: PRAVACHOL PO SCH (20:08)
--- NOTE | 2019-11-10 20:37 | GENERAL SURGERY PROGRESS NOTE ---
DATE: 11/10/2019 SUBJECTIVE: Feels okay. She is still having some diarrhea. She has no fevers. OBJECTIVE: Vital signs: Pulse 61, blood pressure 148/70. General: She is alert. Chest: Left chest tube is in place. Some serosanguineous drainage. The site is clean. LABORATORIES: Her white count was down to 13, hematocrit 33, creatinine is 1.0. IMAGING: I have reviewed her x-ray from yesterday evening that shows resolution of her pneumothorax. ASSESSMENT AND PLAN: A 79-year-old female with left-sided pneumothorax. We will remove her tube today and occlusive dressings will be placed. Her chest x-ray following showed good expansion with no pneumothorax. I suspect we can let her go home in the next 24 to 48 hours and follow her as an outpatient. cc: Anam Grimes MD
--- NOTE | 2019-11-10 20:37 | PROGRESS NOTE ---
DATE: 11/10/2019 SUBJECTIVE: The patient is complaining of abdominal cramping and frequent episodes of diarrhea. OBJECTIVE: Vital Signs: Temperature 97.6 degrees, blood pressure 148/70, heart rate 61, respirations 18, O2 saturation 96% on room air. General: This is a chronically ill-appearing female sitting at the edge of the bed in no acute distress. Heart: S1, S2 normal, bradycardic. Lungs: Clear to auscultation bilaterally. Abdomen: Positive bowel sounds, soft, diffuse tenderness. Extremities: No edema, no cyanosis. Neuro: The patient is alert and oriented x4. LABS: White blood cell count 13, hemoglobin 10, hematocrit 33, potassium 3.3, platelets 597,000, BUN 11, creatinine 1, glucose 86. ASSESSMENT AND PLAN: 1. Clostridium difficile colitis. The patient was started on vancomycin yesterday. She is still having multiple episodes of liquid stools. 2. Atrial fibrillation. The patient is rate controlled. Continue on the current cardiac regimen. 3. s/p Chest tube insertion secondary to left pneumothorax. Management as per the general surgeon. 4. Bilateral pneumonia. Slowly improving. Continue with antibiotic therapy. 5. Hypokalemia. Will replace the patient's potassium. 6. Chronic kidney disease. Stable. 7. Anxiety disorder. Continue with Ativan. 8. Chronic obstructive pulmonary disease. Continue on bronchodilator therapy. 9. Lymphangioleiomyomatosis. Aware. 10. Deep vein thrombosis prophylaxis. The patient is currently on Eliquis. cc: Selena Yeager MD MTDD
--- NOTE | 2019-11-10 22:49 | PULMONOLOGY PROGRESS NOTE ---
DATE: 11/10/2019 SUBJECTIVE: The patient is awake, alert, and conversant. She reports she feels significantly better with removal of the chest tube. She has had no drainage from the chest tube site. OBJECTIVE: Vital Signs: The patient has been afebrile for the last 24 hours. Blood pressure 148/70, heart rate 62, respiratory rate 16, oxygen saturation 93% on room air. HEENT: Pupils are equal and reactive. Oropharynx appears clear. Neck: Supple. Chest: Reveals crackles bilaterally. Cardiac exam: S1, S2. Abdomen: Soft. Extremities: Without edema. LABORATORIES: Chest x-ray reveals some linear atelectasis at the left base with possible small right-sided effusion. Overall infiltrates have improved. White blood count 13.98, hemoglobin 10.8, platelet count 597,000, sodium 140, potassium 3.3, chloride 106, bicarbonate 22, BUN 11, creatinine 1.0. IMPRESSION: A 79-year-old with: 1. Presumptive lymphangioleiomyomatosis. 2. Recurrent pneumothoraces. 3. Leukocytosis. 4. Mild basilar infiltrates, which have improved. 5. Small effusions. 6. Clostridium difficile antigen positive, toxin negative with diarrhea. PLAN: 1. Continue current antibiotic regimen. 2. Followup chest x-ray tomorrow. 3. Continue bronchodilators. 4. Consider discharge soon if she continues to improve. cc: Tereso Ariza MD
[2019-11-10] MEDS: ATIVAN PO PRN (23:07)
[2019-11-11] MEDS: ZOSYN 3.375 GM in NS 50 ML IV SCH ×4 (03:05→20:50)
[2019-11-11] MEDS: VANCOCIN PO SCH ×4 (03:05→20:50)
[2019-11-11] MEDS: OXY IR PO SCH ×4 (03:06→20:51)
[2019-11-11] MEDS: TYLENOL PO SCH ×4 (06:23→23:22)
[2019-11-11 07:14] LABS: BASO# 0.03 X1000 (0.0-0.2); BASO% 0.3 % (0.0-0.8); EOS# 0.16 X1000 (0.0-0.7); EOS% 1.4 % (0.0-10.0); HEMATOCRIT 33.3 % (37.0-47.0); HEMOGLOBIN 10.9 g/dL (12.0-16.0); IMM GRAN# 0.07 X1000 (0.0-0.04); IMM GRAN% 0.6 % (0.0-0.5); LYMPH# 2.47 X1000 (1.2-3.4); LYMPH% 21.7 % (20.5-51.1); MCH 30.3 PG (27-31); MCHC 32.7 g/dL (33-37); MCV 92.5 FL (81-99); MONO# 0.97 X1000 (0.11-0.59); MONO% 8.5 % (1.7-9.3); MPV 8.9 FL (7.4-10.4); NEUT# 7.66 X1000 (1.4-6.5); NEUT% 67.5 % (42.2-75.2); PLT 589 X1000 (130-400); RDW 13.7 % (11.5-14.5); WBC 11.36 X1000 (4.8-10.8)
--- NOTE | 2019-11-11 07:39 | Diag Imaging Result Doc PS360 ---
EXAM: CHEST-2 VIEWS HISTORY: abnormal exam TECHNIQUE: Two views COMPARISON: 11/10/2019 FINDINGS: The lungs are hyperexpanded. There is an increased AP diameter to the chest. Heart is mildly prominent. There are increased interstitial markings in the left lung base which may be fibrosis. There are small pleural effusions. No pneumothorax. IMPRESSION: Mild interval improvement Electronically signed by Rony Sanford 11/11/2019 7:36 AM
[2019-11-11 07:42] LABS: ALBUMIN 2.8 g/dL (3.5-5.0); CALCIUM 8.4 mg/dL (8.8-10.2); PHOSPHORUS 2.9 mg/dL (2.7-4.5); POTASSIUM 3.9 mmol/L (3.5-5.1)
[2019-11-11] MEDS: SYMBICORT 160/4.5 MICROGM INHALER INH SCH ×2 (08:21→19:56)
[2019-11-11] MEDS: TOPROL XL PO SCH (08:39)
[2019-11-11] MEDS: VITAMIN D PO SCH (08:39)
[2019-11-11] MEDS: ELIQUIS PO SCH ×2 (08:39→20:50)
[2019-11-11] MEDS: TAMBOCOR PO SCH ×2 (08:39→20:50)
[2019-11-11] MEDS: LIDODERM TOP SCH (08:40)
[2019-11-11] MEDS: CULTURELLE PO SCH ×2 (08:40→20:50)
[2019-11-11] MEDS: CARDIZEM CD PO SCH (08:40)
[2019-11-11] MEDS: BENTYL PO PRN ×2 (09:05→15:38)
[2019-11-11] MEDS ORDERED: VANCOMYCIN 1,100 MG in NS 250 ML IV SCH (10:00)
[2019-11-11] MEDS: TUSSIONEX LIQUID PO PRN (10:35)
[2019-11-11] MEDS ORDERED: MAGNESIUM SULFATE 2 GM/S.W.I. 2 GM/50 ML IVPB IV ONE (11:07)
--- NOTE | 2019-11-11 19:21 | PROGRESS NOTE ---
DATE: 11/11/2019 SUBJECTIVE: The patient was complaining of abdominal cramping this morning. She states that she only had 1 episode of loose stool overnight. She received some nausea medication and Bentyl and states that her abdominal pain feels a lot better. She states that she does not have an appetite and has not been eating very much. OBJECTIVE: Vital Signs: Temperature 98.4 degrees, blood pressure 154/68, heart rate 65, respirations 18, O2 saturation 95% on room air. General: This is a chronically ill-appearing elderly female lying in bed in no acute distress. Heart: S1, S2 normal. Regular rate and rhythm. Lungs: Equal air entry bilaterally. No wheezing. No rales. No rhonchi. Abdomen: Positive bowel sounds. Soft, nontender, nondistended. Extremities: No edema. No cyanosis. Neurologic: The patient is alert and oriented x4. LABORATORY DATA: White blood cell count 11, hemoglobin 10, hematocrit 33, platelets 589,000. Sodium 143, potassium 3.9, chloride 107, CO2 24, BUN 9, creatinine 1, glucose 89, magnesium 1.7, albumin 2.8. Chest x-ray shows mild interval improvement. ASSESSMENT AND PLAN: 1. Clostridium difficile colitis. Slowly improving. The frequency of bowel movements has decreased. We will continue on oral vancomycin and lactobacillus. 2. Atrial fibrillation. The patient is rate controlled. Continue on the current cardiac medication. 3. Status post chest tube insertion secondary to a left pneumothorax. The chest tube was removed and the pneumothorax has resolved. 4. Pneumonia. Improved. We will transition to oral antibiotic therapy upon discharge. 5. Chronic kidney disease. Stable. 6. Anxiety disorder. Continue on Ativan. 7. Chronic obstructive pulmonary disease. Continue with bronchodilator therapy. 8. Lymphangioleiomyomatosis. Aware. 9. Deep vein thrombosis prophylaxis. The patient is currently on Eliquis. 10. Disposition. If the patient is feeling better tomorrow, she can she can be discharged home. The case was discussed with Dr. Grimes. cc: Selena Yeager MD
--- NOTE | 2019-11-11 20:49 | GENERAL SURGERY PROGRESS NOTE ---
DATE: 11/11/2019 SUBJECTIVE: She feels well now the chest tube is out. She is still having some loose stools, 3 bowel movements today. No fevers. No tachycardia. OBJECTIVE: General: She is alert. Left chest tube dressing is in place. Abdomen: Her abdomen is soft, nontender, nondistended. White count is 10-11, hematocrit 33 and creatinine is 1.0. Her C diff toxin is negative but she did have antigen positive. She is on oral vancomycin and they have started Bentyl. ASSESSMENT AND PLAN: A 79-year-old female status post recurrent pneumothorax. Her chest x-ray looks good after chest tube removal. From a pulmonary standpoint, she could go home and follow with outpatient chest x-ray. I do think given her low volume but loose stools and only antigen positive, it would be reasonable to allow her to go home with a course of oral vancomycin for possible C diff. We will follow her along. cc: Anam Grimes MD
[2019-11-11] MEDS: PRAVACHOL PO SCH (20:50)
--- NOTE | 2019-11-11 21:55 | PULMONOLOGY PROGRESS NOTE ---
DATE: 11/11/2019 SUBJECTIVE: The patient is awake, alert, and conversant. She has had some diarrhea today, but denies chest pain or drainage from her chest tube site. OBJECTIVE: Vital Signs: The patient has been afebrile for the last 24 hours. Blood pressure 154/68, heart rate 65, respiratory rate 18, oxygen saturation 95% on room air. HEENT: Pupils are equal and reactive. Oropharynx appears clear. Neck: Is supple. Chest: Reveals good air entry bilaterally without wheezing or rhonchi. Cardiac exam: S1-S2. Abdomen: Is soft with good bowel sounds. Extremities: Are without edema. LABORATORIES: White blood count 11.36, hemoglobin 10.9, platelet count 589,000. IMPRESSION: 1. A 79-year-old with lymphangioleiomyomatosis. 2. Recurrent pneumothoraces. 3. Resolving leukocytosis. 4. Small effusions. 5. Clostridium difficile antigen positive, toxin negative diarrhea. PLAN: 1. CBC tomorrow. Consider discontinuing IV antibiotics. 2. Continue bronchodilators. 3. Anticipate discharge home soon. Would consider discharging patient with a course of treatment for Clostridium difficile. cc: Tereso Ariza MD
[2019-11-11] MEDS: PHENERGAN PO PRN (23:46)
[2019-11-12] MEDS: ZOSYN 3.375 GM in NS 50 ML IV SCH ×2 (02:40→08:38)
[2019-11-12] MEDS: VANCOCIN PO SCH ×4 (02:41→20:50)
[2019-11-12] MEDS: OXY IR PO SCH ×4 (02:41→17:45)
[2019-11-12] MEDS: TYLENOL PO SCH ×4 (06:13→21:27)
[2019-11-12 06:56] LABS: BASO# 0.02 X1000 (0.0-0.2); BASO% 0.2 % (0.0-0.8); EOS# 0.16 X1000 (0.0-0.7); EOS% 1.7 % (0.0-10.0); HEMATOCRIT 31.4 % (37.0-47.0); HEMOGLOBIN 10.4 g/dL (12.0-16.0); IMM GRAN# 0.05 X1000 (0.0-0.04); IMM GRAN% 0.5 % (0.0-0.5); LYMPH% 20.6 % (20.5-51.1); MCH 30.7 PG (27-31); MCHC 33.1 g/dL (33-37); MCV 92.6 FL (81-99); MONO# 0.84 X1000 (0.11-0.59); MONO% 8.7 % (1.7-9.3); MPV 8.6 FL (7.4-10.4); NEUT# 6.62 X1000 (1.4-6.5); NEUT% 68.3 % (42.2-75.2); PLT 592 X1000 (130-400); RBC 3.39 XMIL (4.2-5.4); RDW 13.6 % (11.5-14.5); WBC 9.69 X1000 (4.8-10.8)
[2019-11-12] MEDS: SYMBICORT 160/4.5 MICROGM INHALER INH SCH ×2 (07:39→19:56)
[2019-11-12 07:40] LABS: ALBUMIN 2.7 g/dL (3.5-5.0); CALCIUM 8.4 mg/dL (8.8-10.2); MAGNESIUM 2.1 mg/dL (1.5-2.7); PHOSPHORUS 3.9 mg/dL (2.7-4.5); POTASSIUM 4.1 mmol/L (3.5-5.1)
[2019-11-12] MEDS: PHENERGAN PO PRN ×2 (08:37→14:25)
[2019-11-12] MEDS: ELIQUIS PO SCH ×2 (08:38→20:50)
[2019-11-12] MEDS: TAMBOCOR PO SCH ×2 (08:38→20:50)
[2019-11-12] MEDS: BENTYL PO PRN (08:38)
[2019-11-12] MEDS: CULTURELLE PO SCH ×2 (08:38→20:50)
[2019-11-12] MEDS: VITAMIN D PO SCH (08:38)
[2019-11-12] MEDS: LIDODERM TOP SCH (08:38)
[2019-11-12] MEDS: CARDIZEM CD PO SCH (08:38)
[2019-11-12] MEDS: TOPROL XL PO SCH (08:38)
--- NOTE | 2019-11-12 12:05 | GENERAL SURGERY PROGRESS NOTE ---
DATE: 11/12/2019 SUBJECTIVE: She is doing well other than some nausea, abdominal cramping, and diarrhea. OBJECTIVE: Vital Signs: No fevers. Pulse 66, blood pressure 149/63, oxygen saturation 95% on room air. General: She is alert. Chest: Left chest tube occlusive dressing is clean. Abdomen: Her abdomen is soft, nontender, nondistended. DIAGNOSTIC DATA: White count is normal today at 9, hematocrit 31. Creatinine is 1. ASSESSMENT AND PLAN: This is a 79-year-old female admitted with pain and leukocytosis. She had chest tube for recurrent pneumothoraces. She did have Clostridium difficile antigen positive. She has had diarrhea. She is attributing this to the IV antibiotics. I think we can stop the IV, continue oral vancomycin, and when she feels well we can let her go home. cc: Anam Grimes MD
--- NOTE | 2019-11-12 15:17 | PROGRESS NOTE ---
DATE: 11/12/2019 SUBJECTIVE: The patient states that she only had one episode of diarrhea last night but she is still having a difficult time with persistent nausea and abdominal cramping. She states that she has had one bowel movements so far today but it is still liquid. OBJECTIVE: Vital Signs: Temperature 98.1 degrees, blood pressure 131/53, heart rate 62, respirations 16, O2 saturation is 94% on room air. General: This is an elderly female lying in bed, in no acute distress. Heart: S1, S2 normal. Regular rate and rhythm. Lungs: Equal air entry bilaterally. Abdomen: Positive bowel sounds. Soft, nontender, nondistended. Extremities: No edema, no cyanosis. Neurologic: The patient is alert and oriented x4. Labs: White blood cell count 9.6, hemoglobin 10, hematocrit 31, platelets 592,000. Sodium 142, potassium 4.1, chloride 106, CO2 of 21, BUN 8, creatinine 1, glucose 76, magnesium 2.1, albumin 2.7. ASSESSMENT AND PLAN: 1. Clostridium difficile colitis. The frequency of the patient's bowel movements has improved. Her stool remained liquid. The patient states that she does not feel comfortable going home today because she is still feeling nauseated. She would like another day in the hospital. We will continue on oral vancomycin and lactobacillus. 2. Atrial fibrillation. The patient is rate controlled. Continue on the current cardiac regimen. 3. Status post chest tube insertion secondary to a left pneumothorax. Resolved. 4. Pneumonia. Resolved. The antibiotics have been discontinued. 5. Chronic kidney disease. Stable. 6. Anxiety disorder. Continue on Ativan. 7. Chronic obstructive pulmonary disease. Continue with bronchodilator therapy. 8. Lymphangioleiomyomatosis. Aware. 9. Deep vein thrombosis prophylaxis. The patient is currently on Eliquis. 10. Disposition. The patient states that she does not feel up to going home today due to her persistent nausea and poor appetite. We will observe the patient in the hospital another day. cc: Selena Yeager MD
[2019-11-12] MEDS: TUSSIONEX LIQUID PO PRN (17:44)
[2019-11-12] MEDS: PRAVACHOL PO SCH (20:50)
--- NOTE | 2019-11-12 23:26 | PULMONOLOGY PROGRESS NOTE ---
DATE: 11/12/2019 SUBJECTIVE: The patient is awake, alert. She reports she feels better. She has had some nausea and some diarrhea. She denies cough, sputum production, shortness of breath or drainage from her chest tube site. OBJECTIVE: Vital Signs: The patient has been afebrile for the last 24 hours. Blood pressure 131/53, heart rate 62, respiratory rate 16, oxygen saturation 94% on room air. HEENT: Pupils are equal and reactive. Oropharynx is clear. Neck: Supple. Chest: Reveals good air entry bilaterally. Cardiac: S1-S2. Abdomen: Soft without tenderness or distention. Extremities: Without edema. LABORATORIES: White blood count 9.69, hemoglobin 10.4, platelet count 592,000. IMPRESSION: A 79-year-old with: 1. Lymphangioleiomyomatosis. 2. Recurrent pneumothoraces. 3. Resolving leukocytosis. 4. Clostridium difficile antigen positive, toxin negative. PLAN: 1. Agree with discontinuing antibiotics. 2. Continue bronchodilators. 3. Patient can be discharged from a pulmonary standpoint. Recommend continued outpatient treatment course for C difficile diarrhea. cc: Tereso Ariza MD
[2019-11-13] MEDS: OXY IR PO SCH ×2 (00:31→06:09)
[2019-11-13] MEDS: ATIVAN PO PRN (00:32)
[2019-11-13] MEDS: VANCOCIN PO SCH ×3 (00:32→09:27)
[2019-11-13] MEDS: TYLENOL PO SCH (06:09)
[2019-11-13 07:52] VITALS: BP 145/67
[2019-11-13] MEDS: SYMBICORT 160/4.5 MICROGM INHALER INH SCH (07:56)
[2019-11-13 08:12] LABS: ALBUMIN 2.6 g/dL (3.5-5.0); CALCIUM 8.1 mg/dL (8.8-10.2); PHOSPHORUS 3.4 mg/dL (2.7-4.5); POTASSIUM 3.6 mmol/L (3.5-5.1)
[2019-11-13] MEDS: TAMBOCOR PO SCH (09:26)
[2019-11-13] MEDS: TOPROL XL PO SCH (09:26)
[2019-11-13] MEDS: ELIQUIS PO SCH (09:27)
[2019-11-13] MEDS: LIDODERM TOP SCH ×2 (09:27→09:29)
[2019-11-13] MEDS: CARDIZEM CD PO SCH (09:27)
[2019-11-13] MEDS: VITAMIN D PO SCH (09:27)
[2019-11-13] MEDS: CULTURELLE PO SCH (09:27)
--- NOTE | 2019-11-22 07:36 | DISCHARGE SUMMARY ---
ADMISSION DATE: 11/07/2019 DISCHARGE DATE: 11/13/2019 FINAL DISCHARGE DIAGNOSES: 1. Recurrent pneumothorax status post left chest tube placement. 2. Lymphangioleiomyomatosis with cystic lung disease 3. Clostridium difficile colitis. 4. Atrial fibrillation. 5. Pneumonia. 6. Chronic kidney disease. 7. Anxiety disorder. CONSULTATIONS: 1. General surgery consultation with Dr. Grimes. 2. Pulmonary consultation with Dr. Ariza. 3. Cardiology consultation with Dr. Moore. IMAGING: Chest CT performed on 11/05/2019 which revealed a left chest tube in place. No evidence of pneumothorax. Bolus emphysema or cystic lung disease. HOSPITAL COURSE: Ms. La is a 79-year-old female with a history of lymphangioleiomyomatosis with cystic lung disease and recurrent pneumothorax as well as atrial fibrillation, who presented to the ER with left-sided chest tube pain. The patient had been discharged from the hospital on 10/27/2019 after being admitted for left-sided chest tube placement. On admission, there was concern about pneumonia so the patient was admitted for further treatment and evaluation. A chest CT was done that revealed the chest tube that was noted to be in the correct position. Pulmonary medicine as well as general surgery were consulted for further assistance with management. The patient was monitored closely in the hospital setting. IV antibiotics were also initiated. The patient was noted to be in atrial fibrillation, which is chronic for the patient. However, her rate was not controlled, so cardiology was consulted for assistance with medication adjustments. Slowly, over the course of the hospital stay, the patient improved from a respiratory standpoint and eventually, her left-sided chest tube was removed. Followup x-rays showed resolution of the pneumothorax. However, the patient developed abdominal pain and cramping, and multiple episodes of liquid stool. Stool for Clostridium difficile was sent away, which came back positive. The patient was then started on oral vancomycin and lactobacillus. After several days of treatment, the patient's diarrhea improved and she was able to eat without any difficulty. Eventually, the patient's antibiotics for pneumonia were also discontinued. The patient continued to improve clinically and was ultimately cleared for discharge home on 11/13/2019. DISCHARGE MEDICATIONS: 1. Vancomycin 125 mg oral every 6 hours x7 days. 2. Eliquis 5 mg oral twice a day. 3. Flecainide 100 mg oral twice a day. 4. Phenergan 12.5 mg oral every 6 hours p.r.n. for nausea. 5. Bentyl 10 mg oral 4 times a day p.r.n. for abdominal spasms. 6. Lactobacillus 1 tablet oral twice a day. 7. Colace 100 mg oral at bedtime p.r.n. for constipation. 8. Symbicort 2 puffs inhaled twice a day. 9. Vitamin D3 at 1000 units oral daily. 10. Aldactone 1 tablet oral Saturday, Saturday, Saturday. 11. Pravachol 80 mg oral at bedtime. 12. Cardizem CD 120 mg oral daily. 13. Toprol-XL 50 mg oral daily. 14. Hydrochlorothiazide 12.5 mg Saturday, Saturday, Saturday. 15. Lorazepam 0.5 mg oral every 6 hours p.r.n. for anxiety. 16. DuoNeb 3 mL inhaled every 4 to 6 hours p.r.n. for shortness of breath. DISCHARGE DIET: Low-sodium, low-cholesterol diet. ACTIVITY: As tolerated. FOLLOWUP INSTRUCTIONS: The patient will need to follow up with Dr. Ariza as scheduled by his clinic. The patient will need to follow up with Dr. Cordero on 11/24/2019 at 1:45 p.m. The patient will need to follow up with Dr. Grimes on 11/27/2019 at 1:15 p.m. The patient will need to follow up with Dr. Andrade on 12/15/2019 at 11 a.m. cc: MD David Cruz MD MTDJens
== END 2019-11-13 10:50 | disposition home or self-care (01) | DRG 871 ==
LOC: ED 16:24 → INTOOBSV 21:45 → EDIPHOLD 21:45 → SUATTDRO 21:45 → 4N 23:48 → 2N 11-06 17:06 → SUATTDRO 11-07 16:13 → 4N 11-08 18:10
PROVIDERS: ATTEND Internal Medicine